=== PATIENT | female | born 1930 | race Caucasian/White ===

== ENCOUNTER 2017-10-11 19:00 | Inpatient (IN) | payer MEDICARE, MEDICAID ==
[~2017-10-11] VITALS: Ht 165.1 cm; Wt 74.4 kg
[~2017-10-11 19:00] MED LIST: ALBU6.7H INH; ALLO100T PO; ATOR10TA PO; AZIL80TA PO; BUDE10.2 INH; CHOL10002 PO; CINA30TA2 PO; CLOP75TA15 PO; ESOM40CA PO; FLUC150T PO; GLIP5TAB13 PO; MAGN500C16 PO; METF-494 PO; MIRA25TA PO; MONT4TAB9 PO; PRED20TA PO; SPIR25TA4 PO; TRAV5DRO EACHEYE
[2017-10-11] MEDS ORDERED: AZIL40TA PO (19:33)
[2017-10-11] MEDS ORDERED: CHOL200026 PO (19:33)
[2017-10-11] MEDS ORDERED: METH4TAB17 PO (19:43)
[2017-10-11] MEDS ORDERED: LINA290C PO (19:43)
[2017-10-11] MEDS ORDERED: ALBU2.5V13 NEB (19:43)
[2017-10-11] MEDS ORDERED: CEPH500C2 PO (19:44)
[2017-10-11 20:24] VITALS: BP 127/58
[2017-10-11] MEDS: ATORVASTATIN 10 MG TABLET PO SCH (21:00)
[2017-10-11] MEDS: LEVOFLOXACIN 250 MG TABLET PO SCH (21:24)
[2017-10-11] MEDS: MONTELUKAST SODIUM 10 MG TABLET PO SCH (21:24)
[2017-10-11] MEDS ORDERED: ALBUTEROL SULFATE 2.5 MG/ 0.5 ML NEBU NEB PRN (22:00)
[2017-10-12] MEDS: ACETAMINOPHEN/CODEINE 300-30 MG TABLET PO PRN ×3 (00:19→22:40)
[2017-10-12] MEDS: ALBUTEROL SULFATE 2.5 MG/ 0.5 ML NEBU NEB SCH ×4 (00:55→20:19)
[2017-10-12 08:00] VITALS: BP 141/73
[2017-10-12] MEDS ORDERED: Medication Not On Formulary EA (Montelukast Sodium (Singulair) 4 MG) PO SCH (09:00)
[2017-10-12] MEDS ORDERED: methylPREDNISolone 4 MG TABLET PO SCH (09:00)
[2017-10-12] MEDS: METFORMIN HCL 500 MG TABLET PO SCH ×2 (09:11→17:34)
[2017-10-12] MEDS: SPIRONOLACTONE 25 MG TABLET PO SCH (09:11)
[2017-10-12] MEDS: ALLOPURINOL 100 MG TABLET PO SCH (09:11)
[2017-10-12] MEDS: CINACALCET HCL 30 MG TABLET PO SCH (09:11)
[2017-10-12] MEDS ORDERED: CHOL200010 PO (13:21)
[2017-10-12] MEDS ORDERED: BUDE10.22 IH (13:21)
[2017-10-12] MEDS ORDERED: TRAV5DRO OP (13:21)
[2017-10-12] MEDS ORDERED: ALBU6.7H IH (13:21)
[2017-10-12] MEDS ORDERED: FURO-151 PO (13:28)
[2017-10-12 19:30] VITALS: BP 129/66
[2017-10-12] MEDS: LEVOFLOXACIN 250 MG TABLET PO SCH (20:53)
[2017-10-12] MEDS: ATORVASTATIN 10 MG TABLET PO SCH (20:53)
[2017-10-12] MEDS: LATANOPROST OPHT DROP 2.5 ML BOTTLE EACHEYE SCH (20:54)
[2017-10-12] MEDS: MONTELUKAST SODIUM 10 MG TABLET PO SCH (20:54)
[2017-10-13] MEDS: ALBUTEROL SULFATE 2.5 MG/ 0.5 ML NEBU NEB SCH ×4 (04:15→20:40)
[2017-10-13 07:43] LABS: CARBON DIOXIDE 27 mmol/L (21-32); CHLORIDE 104 mmol/L (98-107); CREATININE 1.1 mg/dL (0.6-1.3); GLUCOSE 100 mg/dL (74-106); POTASSIUM 4.4 mmol/L (3.5-5.1); UREA NITROGEN, BLOOD 18 mg/dL (7-18)
[2017-10-13 08:08] LABS: BASOPHILS % (AUTO) 0.8 % (0.0-2.0); EOSINOPHILS # (AUTO) 0.1 K/uL (0.0-0.7); EOSINOPHILS % (AUTO) 2.6 % (0.0-7.0); HEMATOCRIT 29.4 % (31.2-41.9); HEMOGLOBIN 9.7 g/dL (10.9-14.3); LYMPHOCYTES # (AUTO) 1.6 K/uL (20.0-40.0); LYMPHOCYTES % (AUTO) 36.2 % (20.5-51.5); MEAN CORPUSCULAR HEMOGLOBIN 27.6 uug (24.7-32.8); MEAN CORPUSCULAR HGB CONC 33 g/dL (32.3-35.6); MEAN CORPUSCULAR VOLUME 84.1 fL (75.5-95.3); MONOCYTES # (AUTO) 0.7 K/uL (2.0-10.0); MONOCYTES % (AUTO) 15.1 % (0.0-11.0); NEUTROPHILS % (AUTO) 45.3 % (38.5-71.5); PLATELET COUNT (AUTO) 202 K/uL (179-408); WHITE BLOOD COUNT (AUTO) 4.5 K/uL (3.8-11.8)
[2017-10-13] MEDS: ALLOPURINOL 100 MG TABLET PO SCH (08:20)
[2017-10-13] MEDS: methylPREDNISolone 4 MG TABLET PO SCH (08:20)
[2017-10-13] MEDS: METFORMIN HCL 500 MG TABLET PO SCH ×2 (08:20→17:03)
[2017-10-13] MEDS: CLOPIDOGREL 75 MG TABLET PO SCH (08:20)
[2017-10-13] MEDS: CINACALCET HCL 30 MG TABLET PO SCH (08:20)
[2017-10-13 09:02] LABS: BAND % (MANUAL) 2 % (0-10); EOSINOPHILS % (MANUAL) 3 % (0-8); LYMPHOCYTES % (MANUAL) 35 % (20-40); MONOCYTES % (MANUAL) 13 % (2-10); NEUTROPHILS % (MANUAL) 47 % (42-75)
[2017-10-13 09:19] VITALS: BP 138/59
[2017-10-13] MEDS: PANTOPRAZOLE SODIUM 40 MG TABLET.DR PO SCH (10:20)
[2017-10-13] MEDS: ACETAMINOPHEN/CODEINE 300-30 MG TABLET PO PRN ×2 (10:20→20:52)
[2017-10-13] MEDS ORDERED: BUDE10.2 INH (10:29)
[2017-10-13] MEDS ORDERED: SYMBICORT 160/4.5 INH SCH (10:30)
[2017-10-13 16:47] LABS: PHOSPHOROUS 2.8 mg/dL (2.5-4.9)
[2017-10-13 16:55] LABS: *BILIRUBIN,URIN NEGATIVE (NEGATIVE); *BLOOD, URINE NEGATIVE (NEGATIVE); *CLARITY,URINE CLEAR (CLEAR); *COLOR,URINE YELLOW (YELLOW); *KETONES,URINE NEGATIVE (NEGATIVE); *PROTEIN,URINE NEGATIVE (NEGATIVE); *UROBILINOGEN,URINE 0.2 E.U./dl (NORMAL); LEUKOCYTE ESTERASE ,URINE TRACE (NEGATIVE); NITRITE, URINE NEGATIVE (NEGATIVE); PH,URINE 5.5 (5.0-8.0); UGLUCOSE NEGATIVE (NEGATIVE)
[2017-10-13 17:13] LABS: MAGNESIUM 1.1 mg/dL (1.8-2.4)
[2017-10-13] MEDS ORDERED: MAGNESIUM OXIDE 400 MG TABLET PO SCH (17:30)
[2017-10-13 17:37] LABS: BACTERIA,URINE NONE SEEN /HPF (NONE SEEN); RBC,URINE 0-3 /HPF (0-3); SQUAMOUS EPITHELIAL CELL,UR FEW /HPF (NONE SEEN); WBC,URINE 0-3 /HPF (0-3)
[2017-10-13] MEDS ORDERED: MAGNESIUM OXIDE 250 MG TABLET PO SCH (17:45)
[2017-10-13 19:30] VITALS: BP 143/68
[2017-10-13] MEDS: MONTELUKAST SODIUM 10 MG TABLET PO SCH (20:50)
[2017-10-13] MEDS: ATORVASTATIN 10 MG TABLET PO SCH (20:50)
[2017-10-13] MEDS: LATANOPROST OPHT DROP 2.5 ML BOTTLE EACHEYE SCH (21:08)
[2017-10-14] MEDS: ALBUTEROL SULFATE 2.5 MG/ 0.5 ML NEBU NEB SCH ×4 (01:30→18:43)
[2017-10-14] MEDS: PANTOPRAZOLE SODIUM 40 MG TABLET.DR PO SCH (06:31)
[2017-10-14 07:00] VITALS: BP 130/61
[2017-10-14] MEDS: SPIRONOLACTONE 25 MG TABLET PO SCH (09:43)
[2017-10-14] MEDS: METFORMIN HCL 500 MG TABLET PO SCH ×2 (09:45→17:40)
[2017-10-14] MEDS: ALLOPURINOL 100 MG TABLET PO SCH (09:45)
[2017-10-14] MEDS: CINACALCET HCL 30 MG TABLET PO SCH (09:45)
[2017-10-14] MEDS: MAGNESIUM OXIDE 250 MG TABLET PO SCH ×2 (09:46→17:40)
[2017-10-14] MEDS: ACETAMINOPHEN/CODEINE 300-30 MG TABLET PO PRN ×2 (10:41→22:04)
[2017-10-14] MEDS: MAGNESIUM SULFATE/D5W 100 ML IV SCH ×4 (16:23→23:06)
[2017-10-14 19:30] VITALS: BP 151/60
[2017-10-14] MEDS: LATANOPROST OPHT DROP 2.5 ML BOTTLE EACHEYE SCH (21:36)
[2017-10-14] MEDS: MONTELUKAST SODIUM 10 MG TABLET PO SCH (21:36)
[2017-10-14] MEDS: ATORVASTATIN 10 MG TABLET PO SCH (21:36)
[2017-10-15] MEDS: ALBUTEROL SULFATE 2.5 MG/ 0.5 ML NEBU NEB SCH ×4 (00:57→19:54)
[2017-10-15] MEDS: PANTOPRAZOLE SODIUM 40 MG TABLET.DR PO SCH (06:25)
[2017-10-15 08:00] VITALS: BP 126/57
[2017-10-15] MEDS: MAGNESIUM OXIDE 250 MG TABLET PO SCH ×2 (09:05→16:51)
[2017-10-15] MEDS: ALLOPURINOL 100 MG TABLET PO SCH (09:06)
[2017-10-15] MEDS: MIRABEGRON PO SCH (09:06)
[2017-10-15] MEDS: CLOPIDOGREL 75 MG TABLET PO SCH (09:06)
[2017-10-15] MEDS: METFORMIN HCL 500 MG TABLET PO SCH ×2 (09:06→17:30)
[2017-10-15] MEDS: [UNRECOGNIZED DRUG - OTHER] PO SCH (09:06)
[2017-10-15] MEDS: methylPREDNISolone 4 MG TABLET PO SCH (09:06)
[2017-10-15] MEDS: CINACALCET HCL 30 MG TABLET PO SCH (09:06)
[2017-10-15] MEDS: ACETAMINOPHEN/CODEINE 300-30 MG TABLET PO PRN ×2 (11:41→21:00)
[2017-10-15] MEDS ORDERED: MINERAL OIL/PETROLATUM,WHITE 57 GM TUBE TOP PRN (12:45)
[2017-10-15] MEDS ORDERED: Z GUARD REMEDY PASTE 57 GM TUBE TOP PRN (12:45)
[2017-10-15] MEDS ORDERED: MAGNESIUM HYDROXIDE 30 ML LIQUID UDC PO PRN (13:00)
[2017-10-15 20:46] VITALS: BP 141/58
[2017-10-15] MEDS: MONTELUKAST SODIUM 10 MG TABLET PO SCH (20:54)
[2017-10-15] MEDS: LATANOPROST OPHT DROP 2.5 ML BOTTLE EACHEYE SCH (20:54)
[2017-10-15] MEDS: ATORVASTATIN 10 MG TABLET PO SCH (20:54)
[2017-10-16] MEDS: ALBUTEROL SULFATE 2.5 MG/ 0.5 ML NEBU NEB SCH ×3 (01:30→13:30)
[2017-10-16] MEDS: PANTOPRAZOLE SODIUM 40 MG TABLET.DR PO SCH (06:00)
[2017-10-16 07:29] VITALS: BP 143/58
[2017-10-16 08:04] LABS: BASOPHILS # (AUTO) 0.1 K/uL (0.0-8.0); BASOPHILS % (AUTO) 0.6 % (0.0-2.0); EOSINOPHILS # (AUTO) 0.2 K/uL (0.0-0.7); EOSINOPHILS % (AUTO) 1.9 % (0.0-7.0); HEMATOCRIT 29.6 % (31.2-41.9); LYMPHOCYTES # (AUTO) 1.4 K/uL (20.0-40.0); LYMPHOCYTES % (AUTO) 11.7 % (20.5-51.5); MEAN CORPUSCULAR HEMOGLOBIN 28.2 uug (24.7-32.8); MEAN CORPUSCULAR HGB CONC 34 g/dL (32.3-35.6); MEAN CORPUSCULAR VOLUME 83.8 fL (75.5-95.3); MONOCYTES # (AUTO) 0.9 K/uL (2.0-10.0); MONOCYTES % (AUTO) 7.8 % (0.0-11.0); NEUTROPHILS # (AUTO) 9.2 K/uL (1.8-8.9); PLATELET COUNT (AUTO) 277 K/uL (179-408); RED BLOOD CELL COUNT(AUTO) 3.53 MIL/uL (3.63-4.92); WHITE BLOOD COUNT (AUTO) 11.7 K/uL (3.8-11.8)
[2017-10-16] MEDS: SPIRONOLACTONE 25 MG TABLET PO SCH (08:24)
[2017-10-16] MEDS: CINACALCET HCL 30 MG TABLET PO SCH (08:24)
[2017-10-16] MEDS: ALLOPURINOL 100 MG TABLET PO SCH (08:24)
[2017-10-16] MEDS: METFORMIN HCL 500 MG TABLET PO SCH ×2 (08:24→17:30)
[2017-10-16] MEDS: [UNRECOGNIZED DRUG - OTHER] PO SCH (08:25)
[2017-10-16] MEDS: MIRABEGRON PO SCH (08:25)
[2017-10-16] MEDS: MAGNESIUM OXIDE 250 MG TABLET PO SCH ×2 (08:25→17:26)
[2017-10-16 08:55] LABS: ALANINE AMINOTRANSFERASE 15 U/L (14-59); ALKALINE PHOSPHATASE 52 U/L (50-136); ASPARTATE AMINOTRANSFERASE 15 U/L (15-37); BILIRUBIN,TOTAL 0.4 mg/dL (0.2-1.0); CARBON DIOXIDE 29 mmol/L (21-32); CHLORIDE 104 mmol/L (98-107); CHOLESTEROL 129 mg/dL (<200); CREATININE 1.1 mg/dL (0.6-1.3); GLUCOSE 91 mg/dL (74-106); HDL CHOLESTEROL 64 mg/dL (40-60); MAGNESIUM 1.6 mg/dL (1.8-2.4); PHOSPHOROUS 2.5 mg/dL (2.5-4.9); POTASSIUM 4.3 mmol/L (3.5-5.1); TOTAL PROTEIN, SERUM 5.6 g/dL (6.4-8.2); TRIGLYCERIDES 100 MG/DL (30-150); UREA NITROGEN, BLOOD 22 mg/dL (7-18)
[2017-10-16] MEDS: ACETAMINOPHEN/CODEINE 300-30 MG TABLET PO PRN (10:05)
[2017-10-16] MEDS ORDERED: MAGNESIUM OXIDE 400 MG TABLET PO ONE (10:45)
[2017-10-16 12:42] LABS: EOSINOPHILS % (MANUAL) 2 % (0-8); LYMPHOCYTES % (MANUAL) 11 % (20-40); MONOCYTES % (MANUAL) 8 % (2-10); NEUTROPHILS % (MANUAL) 79 % (42-75)
[2017-10-16 15:50] LABS: *BILIRUBIN,URIN NEGATIVE (NEGATIVE); *BLOOD, URINE NEGATIVE (NEGATIVE); *COLOR,URINE YELLOW (YELLOW); *KETONES,URINE NEGATIVE (NEGATIVE); *PROTEIN,URINE NEGATIVE (NEGATIVE); *UROBILINOGEN,URINE 0.2 E.U./dl (NORMAL); LEUKOCYTE ESTERASE ,URINE 2+ (NEGATIVE); NITRITE, URINE NEGATIVE (NEGATIVE); UGLUCOSE NEGATIVE (NEGATIVE)
[2017-10-16 17:11] LABS: *CLARITY,URINE HAZY (CLEAR)
[2017-10-16 17:12] LABS: RBC,URINE 0-3 /HPF (0-3); WBC,URINE 50-80 /HPF (0-3)
[2017-10-16 17:13] LABS: BACTERIA,URINE MANY /HPF (NONE SEEN); SQUAMOUS EPITHELIAL CELL,UR FEW /HPF (NONE SEEN)
[2017-10-16] MEDS ORDERED: diphenhydrAMINE 50 MG/1 ML VIAL IV PRN (17:30)
[2017-10-16 19:19] LABS: BASOPHILS # (AUTO) 0.1 K/uL (0.0-8.0); BASOPHILS % (AUTO) 0.7 % (0.0-2.0); EOSINOPHILS # (AUTO) 0.2 K/uL (0.0-0.7); EOSINOPHILS % (AUTO) 1.1 % (0.0-7.0); HEMATOCRIT 32.3 % (31.2-41.9); HEMOGLOBIN 10.7 g/dL (10.9-14.3); LYMPHOCYTES # (AUTO) 1.3 K/uL (20.0-40.0); LYMPHOCYTES % (AUTO) 8.3 % (20.5-51.5); MEAN CORPUSCULAR HGB CONC 33 g/dL (32.3-35.6); MEAN CORPUSCULAR VOLUME 84.2 fL (75.5-95.3); MONOCYTES # (AUTO) 1.1 K/uL (2.0-10.0); MONOCYTES % (AUTO) 7.1 % (0.0-11.0); NEUTROPHILS # (AUTO) 12.6 K/uL (1.8-8.9); NEUTROPHILS % (AUTO) 82.8 % (38.5-71.5); PLATELET COUNT (AUTO) 322 K/uL (179-408); RED BLOOD CELL COUNT(AUTO) 3.84 MIL/uL (3.63-4.92); WHITE BLOOD COUNT (AUTO) 15.1 K/uL (3.8-11.8)
[2017-10-16 19:28] LABS: CARBON DIOXIDE 30 mmol/L (21-32); CHLORIDE 99 mmol/L (98-107); CREATININE 1.2 mg/dL (0.6-1.3); GLUCOSE 159 mg/dL (74-106); POTASSIUM 4.4 mmol/L (3.5-5.1); UREA NITROGEN, BLOOD 21 mg/dL (7-18)
[2017-10-16 19:33] LABS: ALANINE AMINOTRANSFERASE 15 U/L (14-59); ALKALINE PHOSPHATASE 61 U/L (50-136); ASPARTATE AMINOTRANSFERASE 15 U/L (15-37); BILIRUBIN,TOTAL 0.5 mg/dL (0.2-1.0); MAGNESIUM 1.5 mg/dL (1.8-2.4); PHOSPHOROUS 1.8 mg/dL (2.5-4.9); TOTAL PROTEIN, SERUM 6.1 g/dL (6.4-8.2)
[2017-10-16] MEDS ORDERED: VANCOMYCIN IV 1 G in PREMIXED 0 EACH IV SCH (20:00)
[2017-10-16] MEDS ORDERED: [UNRECOGNIZED DRUG - REMARK] IV (20:12)
[2017-10-16] MEDS ORDERED: VANC1VIA IV (20:12)
[2017-10-16] MEDS ORDERED: MIRA25TA PO (20:12)
[2017-10-16] MEDS ORDERED: DIPH50VI5 IM (20:12)
[2017-10-16] MEDS ORDERED: ALBU2.5V13 IH (20:12)
[2017-10-16] MEDS ORDERED: PANT40TA2 PO (20:12)
[2017-10-16] MEDS ORDERED: MONT10TA22 PO (20:12)
[2017-10-16] MEDS ORDERED: PETR113P TP (20:12)
[2017-10-16] MEDS ORDERED: LATA2.5D2 OP (20:12)
[2017-10-16] MEDS ORDERED: ACET-1467 PO (20:12)
[2017-10-16] MEDS ORDERED: FAMO20VI2 IV (20:12)
[2017-10-16] MEDS ORDERED: FAMOTIDINE. 20 MG/2 ML VIAL IV SCH (21:00)
[2017-10-21] MEDS ORDERED: MAGN400O6 PO (16:16)
[2017-10-21] MEDS ORDERED: ACET-1467 PO (16:16)
[2017-10-21] MEDS ORDERED: ACET325T53 PO (16:16)
[2017-10-21] MEDS ORDERED: GLIM1TAB PO (16:16)
[2017-10-21] MEDS ORDERED: ACID1TAB4 PO (16:16)
[2017-10-21] MEDS ORDERED: DOXY100T2 PO (16:16)
[2017-10-21] MEDS ORDERED: FAMO20TA8 PO (16:16)
[2018-10-13] MEDS ORDERED: FUROSEMIDE 40 MG TABLET PO SCH (09:00)
== END 2017-10-17 16:00 | disposition short-term general hospital (02) | DRG 70 ==
LOC: UNDOLOA 10-16 19:19 → UNDODISIN 10-19 19:03
PROVIDERS: ADMIT Physical Medicine & Rehabilitation Pain Medicine; ATTEND Physical Medicine & Rehabilitation Pain Medicine
DX: G93.41 Metabolic encephalopathy (principal); A41.9 Sepsis, unspecified organism; E43 Unspecified severe protein-calorie malnutrition; L03.115 Cellulitis of right lower limb; E83.42 Hypomagnesemia; E83.52 Hypercalcemia; N39.0 Urinary tract infection, site not specified; E11.9 Type 2 diabetes mellitus without complications; E86.1 Hypovolemia; L03.116 Cellulitis of left lower limb; E87.1 Hypo-osmolality and hyponatremia; R07.89 Other chest pain; R50.9 Fever, unspecified; D50.9 Iron deficiency anemia, unspecified; E66.9 Obesity, unspecified; I10 Essential (primary) hypertension; J45.909 Unspecified asthma, uncomplicated; K21.9 Gastro-esophageal reflux disease without esophagitis; M19.90 Unspecified osteoarthritis, unspecified site; Z68.27 Body mass index [BMI] 27.0-27.9, adult; E78.5 Hyperlipidemia, unspecified; M48.00 Spinal stenosis, site unspecified; M54.40 Lumbago with sciatica, unspecified side; G89.29 Other chronic pain; Z88.6 Allergy status to analgesic agent; Z88.1 Allergy status to other antibiotic agents; Z88.0 Allergy status to penicillin; Z88.2 Allergy status to sulfonamides; Z88.8 Allergy status to other drugs, medicaments and biological substances
CPT/HCPCS: 36415; 70030-TC; 71045; 82306; 83605; 83735; 84100; 84443; 85025; 87040; 87077; 87086; 92526; 92610; 93005; 94640; 97110; 97112; 97116; 97165; 97530; 97535; J3370; J3475; J7050; J7509; J8499

== ENCOUNTER 2017-10-16 19:17 | Inpatient (IN) | payer MEDICARE, MEDICAID ==
[~2017-10-16] VITALS: Ht 160 cm; Wt 72.6 kg
[~2017-10-16 19:17] MED LIST changes: +ALBU2.5V13 NEB; -ALBU6.7H INH; +AZIL40TA PO; -AZIL80TA PO; +CEPH500C2 PO; -CHOL10002 PO; +CHOL200026 PO; -FLUC150T PO; +FURO-151 PO; -GLIP5TAB13 PO; +LINA290C PO; +METH4TAB17 PO; -PRED20TA PO
--- NOTE | 2017-10-16 19:30 | NUR ---
PER ASSEMBLY HAND, PT STATED SHE WAS EXPERIENCING CHEST PAIN, PROMPTING RAPID RESPONSE. UPON ARRIVAL TO ED, PT DENIES CURRENTLY EXPERIENCING CP. DENIES SOB. NO NITRO WAS GIVEN.
--- NOTE | 2017-10-16 19:32 | NUR ---
CLARI FULTON AT BEDSIDE FOR MSE.
--- NOTE | 2017-10-16 19:50 | NUR ---
[facility] AT PT BEDSIDE FOR BLOOD DRAW.
[2017-10-16] MEDS ORDERED: ACETAMINOPHEN 650 MG SUPP.RECT RC ONE ×2 (20:00→20:24)
--- NOTE | 2017-10-16 20:06 | NUR ---
PT'S DAUGHTER AT BEDSIDE.
[2017-10-16 20:11] LABS: THYROID STIMULATING HORMONE 1.793 mIU/mL (0.358-3.740)
[2017-10-16] MEDS ORDERED: [UNRECOGNIZED DRUG - REMARK] IV (20:12)
[2017-10-16] MEDS ORDERED: ACET-1467 PO (20:12)
[2017-10-16] MEDS ORDERED: MIRA25TA PO (20:12)
[2017-10-16] MEDS ORDERED: LATA2.5D2 OP (20:12)
[2017-10-16] MEDS ORDERED: ALBU2.5V13 IH (20:12)
[2017-10-16] MEDS ORDERED: MONT10TA22 PO (20:12)
[2017-10-16] MEDS ORDERED: PANT40TA2 PO (20:12)
[2017-10-16] MEDS ORDERED: VANC1VIA IV (20:12)
[2017-10-16] MEDS ORDERED: FAMO20VI2 IV (20:12)
[2017-10-16] MEDS ORDERED: DIPH50VI5 IM (20:12)
[2017-10-16] MEDS ORDERED: PETR113P TP (20:12)
[2017-10-16 20:15] LABS: MAGNESIUM 1.6 mg/dL (1.8-2.4)
[2017-10-16] MEDS ORDERED: AZTREONAM 1 G VIAL IV ONE (20:15)
[2017-10-16] MEDS ORDERED: MEROPENEM 500 MG in IV NORMAL SALINE 100 ML IV ONE (20:15)
[2017-10-16] MEDS ORDERED: MEROPENEM 500 MG VIAL IV ONE (20:24)
--- NOTE | 2017-10-16 20:49 | NUR ---
Call placed to [facility], Dr. Clinton will be paged.
[2017-10-16] MEDS ORDERED: FLUCONAZOLE 100 MG TABLET PO ONE (21:00)
[2017-10-16] MEDS ORDERED: NITROFURANTOIN/NITROFURAN MAC 100 MG CAPSULE PO ONE (21:00)
[2017-10-16] MEDS ORDERED: NITROFURANTOIN/NITROFURAN MAC 100 MG CAPSULE ONE (21:09)
[2017-10-16] MEDS ORDERED: FLUCONAZOLE 100 MG TABLET ONE (21:09)
[2017-10-16] MEDS: MAGNESIUM SULFATE/D5W 100 ML IV SCH ×2 (21:15→22:06)
[2017-10-16] MEDS ORDERED: MAGNESIUM SULFATE/D5W 200 ML ONE (21:57)
[2017-10-16] MEDS ORDERED: ALBUTEROL SULFATE 2.5 MG/ 0.5 ML NEBU IH PRN (23:45)
[2017-10-16] MEDS ORDERED: diphenhydrAMINE 50 MG/1 ML VIAL IV PRN (23:45)
[2017-10-17] MEDS ORDERED: ONDANSETRON 4 MG/2 ML VIAL IV PRN
[2017-10-17] MEDS ORDERED: MAGNESIUM HYDROXIDE 30 ML LIQUID UDC PO PRN
[2017-10-17] MEDS ORDERED: ENALAPRILAT DIHYDRATE INJ 2.5 MG in IV NORMAL SALINE 50 ML IV PRN ×2
[2017-10-17] MEDS: MAGNESIUM SULFATE/D5W 100 ML IV SCH
[2017-10-17] MEDS ORDERED: MORPHINE SULFATE 4 MG/1 ML DISP.SYRIN IV PRN
--- NOTE | 2017-10-17 00:42 | NUR ---
Pt. admitted to tele, under care of Dr. Clinton Belongs List completed
[2017-10-17 01:00] VITALS: BP 144/56
--- NOTE | 2017-10-17 01:05 | NUR ---
NEW ADMIT FROM ER, ADMITTED FOR PNEUMONIA. PATIENT IS ALERT WITH CONFUSION, DENIES PAIN OR DISCOMFORT. ALL SAFETY MEASURES IN PLACE, CALL LIGHT WITHIN PATIENT'S REACH
[2017-10-17] MEDS ORDERED: MEROPENEM 1 G VIAL IV ONE (03:30)
[2017-10-17] MEDS ORDERED: FLUCONAZOLE 200 MG/100 ML PIGGYBACK ONE (03:31)
[2017-10-17] MEDS: FLUCONAZOLE 200 MG/NS 100ML IV 100 MG in PREMIXED 1 EACH IV SCH (03:45)
[2017-10-17 04:00] VITALS: BP 143/47
[2017-10-17] MEDS: MEROPENEM 0.5 G in IV NORMAL SALINE 50 ML IV SCH ×4 (05:38→21:50)
--- NOTE | 2017-10-17 06:30 | NUR ---
PATIENT SLEPT WELL THOUGH THE NIGHT NO C/O PAIN OR RESP DISTRESS NOTED ON THIS SHIFT. SAFETY MAINTAINED, CALL LIGHT WITHIN PATIENT'S REACH
--- NOTE | 2017-10-17 07:00 | NUR ---
Received patient on bed asleep A and O x 3, able to verbalize needs. No acute distress noted. with IV access on the right hand #20, intact and patent. No s/s of infiltration noted. No complaints of pain and discomfort at this time. Min. assist with ADL's, uses bedside commode. Safety precautions observed at all times. Needs attended and anticipated. Call light within reach .will continue to monitor closely
[2017-10-17] MEDS: ALLOPURINOL 100 MG TABLET PO SCH (08:41)
[2017-10-17] MEDS: CINACALCET HCL 30 MG TABLET PO SCH (08:41)
[2017-10-17] MEDS: ACIDOPHILUS/BULGARICUS CHEW TAB PO SCH ×2 (08:41→21:20)
[2017-10-17] MEDS: FAMOTIDINE. 20 MG/2 ML VIAL IV SCH ×2 (08:42→21:18)
[2017-10-17] MEDS: FUROSEMIDE 40 MG/4 ML VIAL IV SCH (08:42)
[2017-10-17] MEDS ORDERED: PANTOPRAZOLE SODIUM 40 MG TABLET.DR PO SCH (09:00)
[2017-10-17 09:02] LABS: BASOPHILS # (AUTO) 0.1 K/uL (0.0-8.0); BASOPHILS % (AUTO) 0.4 % (0.0-2.0); EOSINOPHILS # (AUTO) 0.3 K/uL (0.0-0.7); EOSINOPHILS % (AUTO) 1.9 % (0.0-7.0); HEMATOCRIT 30.3 % (31.2-41.9); HEMOGLOBIN 10.1 g/dL (10.9-14.3); LYMPHOCYTES # (AUTO) 1.1 K/uL (20.0-40.0); LYMPHOCYTES % (AUTO) 7.9 % (20.5-51.5); MEAN CORPUSCULAR HEMOGLOBIN 28.1 uug (24.7-32.8); MEAN CORPUSCULAR HGB CONC 33 g/dL (32.3-35.6); MONOCYTES # (AUTO) 0.9 K/uL (2.0-10.0); MONOCYTES % (AUTO) 6.7 % (0.0-11.0); NEUTROPHILS # (AUTO) 11.3 K/uL (1.8-8.9); NEUTROPHILS % (AUTO) 83.1 % (38.5-71.5); PLATELET COUNT (AUTO) 309 K/uL (179-408); RED BLOOD CELL COUNT(AUTO) 3.61 MIL/uL (3.63-4.92); WHITE BLOOD COUNT (AUTO) 13.6 K/uL (3.8-11.8)
[2017-10-17 09:16] LABS: ALANINE AMINOTRANSFERASE 13 U/L (14-59); ALKALINE PHOSPHATASE 56 U/L (50-136); ASPARTATE AMINOTRANSFERASE 15 U/L (15-37); BILIRUBIN,TOTAL 0.5 mg/dL (0.2-1.0); CARBON DIOXIDE 28 mmol/L (21-32); CHLORIDE 101 mmol/L (98-107); CREATININE 1.2 mg/dL (0.6-1.3); GLUCOSE 114 mg/dL (74-106); MAGNESIUM 1.9 mg/dL (1.8-2.4); PHOSPHOROUS 2.2 mg/dL (2.5-4.9); POTASSIUM 4.1 mmol/L (3.5-5.1); TOTAL PROTEIN, SERUM 5.7 g/dL (6.4-8.2); UREA NITROGEN, BLOOD 18 mg/dL (7-18)
[2017-10-17] MEDS: CLOPIDOGREL 75 MG TABLET PO SCH (09:28)
[2017-10-17] MEDS: MAGNESIUM OXIDE 250 MG TABLET PO SCH ×2 (09:53→16:30)
[2017-10-17] MEDS ORDERED: NEUTRA PHOS PACKET PO ONE (10:30)
--- NOTE | 2017-10-17 11:30 | NUR ---
Called Pharmacy to clarify Vancomycin order since patient's record says she's allergic to Vancomycin. Per [facility] pharmacist Dr. Ny aware and approved vanco order. Will continue to monitor patient.
[2017-10-17 11:40] VITALS: BP 151/56
[2017-10-17] MEDS: VANCOMYCIN IV 750 MG in IV NORMAL SALINE 250 ML IV SCH (11:49)
--- NOTE | 2017-10-17 12:45 | NUR ---
PATIENT NOTED WITH REDNESS AND SWELLING ON THE RIGHT HAND #22, IV ACCESS REMOVED AND NOTIFIED VENICE CHARGE NURSE AND DR. BENNETT. WILL CONTINUE TO MONITOR CLOSELY.
--- NOTE | 2017-10-17 12:50 | NUR ---
No IV access, plan for insertion of midline later today. Vancomycin IV stopped. will continue to monitor.
--- NOTE | 2017-10-17 15:03 | NUR ---
Clinical pharmacy note-Vancomycin dosing per pharmacy Subjective: To start Vancomycin dosing on this patient for UTI(MRSA in urine) Objective: BUN 18 Scr 1.2 WBC 13.6 Temp 100.1 Assessment/Plan: Will start Vancomycin 750mg IV every 24hrs (first dose today at 1200) and draw trough by 4th dose(not ordered yet) for expected trough around 15. Will monitor daily.
[2017-10-17 15:35] VITALS: BP 146/59
--- NOTE | 2017-10-17 18:33 | NUR ---
PATIENT ON BED AWAKE. NO ACUTE DISTRESS NOTED. PRODUCTIVE COUGH STILL PRESENT. NO IV ACCESS YET, AWAITING MIDLINE INSERTION FOLLOWED UP X 3. VANCO AND MEREM IVATB NOT GIVEN. NO C/O PAIN AND DISCOMFORT AT THIS TIME. BM X 1. WILL ENDORSE ACCORDINGLY.
[2017-10-17 20:45] VITALS: BP 136/55
[2017-10-17] MEDS ORDERED: LATANOPROST OPHT DROP 2.5 ML BOTTLE OP SCH (21:00)
[2017-10-17] MEDS ORDERED: DOCUSATE SODIUM 250 MG CAPSULE PO SCH (21:00)
[2017-10-17] MEDS: LATANOPROST OPHT DROP 2.5 ML BOTTLE EACHEYE SCH (21:18)
[2017-10-17] MEDS: MONTELUKAST SODIUM 10 MG TABLET PO SCH (21:20)
[2017-10-17] MEDS: ATORVASTATIN 10 MG TABLET PO SCH (21:20)
[2017-10-17] MEDS: ACETAMINOPHEN 325 MG TABLET PO PRN (21:55)
--- NOTE | 2017-10-17 21:55 | NUR ---
RECEIVED PATIENT AWAKE IN BED, SHE IS ALERT WITH CONFUSION. SHE C/O OF GENERALIZED PAIN, PRN PAIN MEDS GIVEN ORDERED. NO RESP DISTRESS AT THIS TIME. COMFORT AND SAFETY MEASURES IN PLACE, WILL CONTINUE TO MONITOR PATIENT
--- NOTE | 2017-10-17 22:00 | NUR ---
UNABLE TO ADMINISTER MERREM, NEW IV WAS STARTED AND INFILTRATED. REMOVED IV APPLIED ICE AND ELEVATED EXTREMITY, COMFORT MEASURES INITIATED. AWAITING FOR EPIC GROUP TO INSERT MIDLINE
[2017-10-17] MEDS ORDERED: TRAMADOL HCL 50 MG TABLET PO PRN (23:15)
[2017-10-18] MEDS: FLUCONAZOLE 200 MG/NS 100ML IV 100 MG in PREMIXED 1 EACH IV SCH ×2
[2017-10-18 00:32] VITALS: BP 108/44
[2017-10-18] MEDS: ACETAMINOPHEN/CODEINE 300-30 MG TABLET PO PRN ×2 (00:32→22:32)
[2017-10-18 04:00] VITALS: BP 116/56
[2017-10-18] MEDS: MEROPENEM 0.5 G in IV NORMAL SALINE 50 ML IV SCH ×3 (06:00→21:05)
--- NOTE | 2017-10-18 06:39 | NUR ---
PATIENT SLEPT ON AND OFF THROUGH THE NIGHT. NO SIGNIFICANT CHANGES IN STATUS. MERREM WAS HELD PATIENT WITH NO IV ACCESS, STILL WAITING FOR EPIC GROUP TO INSERT MIDLINE
[2017-10-18 06:42] LABS: BASOPHILS # (AUTO) 0.1 K/uL (0.0-8.0); BASOPHILS % (AUTO) 0.5 % (0.0-2.0); EOSINOPHILS # (AUTO) 0.6 K/uL (0.0-0.7); EOSINOPHILS % (AUTO) 4.4 % (0.0-7.0); HEMATOCRIT 29.4 % (31.2-41.9); HEMOGLOBIN 9.8 g/dL (10.9-14.3); LYMPHOCYTES # (AUTO) 1.2 K/uL (20.0-40.0); LYMPHOCYTES % (AUTO) 9.7 % (20.5-51.5); MEAN CORPUSCULAR HEMOGLOBIN 27.8 uug (24.7-32.8); MEAN CORPUSCULAR HGB CONC 33 g/dL (32.3-35.6); MEAN CORPUSCULAR VOLUME 83.2 fL (75.5-95.3); MONOCYTES # (AUTO) 0.9 K/uL (2.0-10.0); MONOCYTES % (AUTO) 7.3 % (0.0-11.0); NEUTROPHILS % (AUTO) 78.1 % (38.5-71.5); PLATELET COUNT (AUTO) 312 K/uL (179-408); RED BLOOD CELL COUNT(AUTO) 3.53 MIL/uL (3.63-4.92); WHITE BLOOD COUNT (AUTO) 12.8 K/uL (3.8-11.8)
[2017-10-18 06:59] LABS: ALANINE AMINOTRANSFERASE 20 U/L (14-59); ALKALINE PHOSPHATASE 64 U/L (50-136); ASPARTATE AMINOTRANSFERASE 14 U/L (15-37); BILIRUBIN,TOTAL 0.5 mg/dL (0.2-1.0); CARBON DIOXIDE 30 mmol/L (21-32); CHLORIDE 98 mmol/L (98-107); CREATININE 1.3 mg/dL (0.6-1.3); GLUCOSE 89 mg/dL (74-106); MAGNESIUM 1.7 mg/dL (1.8-2.4); PHOSPHOROUS 2.8 mg/dL (2.5-4.9); POTASSIUM 3.8 mmol/L (3.5-5.1); TOTAL PROTEIN, SERUM 5.5 g/dL (6.4-8.2); UREA NITROGEN, BLOOD 19 mg/dL (7-18)
--- NOTE | 2017-10-18 07:20 | NUR ---
Report received from film processing shift supervisor, client is in bed sleeping with no apparent s/s of SOB, pain, distress or discomfort. Client is in a semi fowlers position laying supine. Bed at lowest position for safety and call light within reach for assistance. 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 No IV hydration and or ATB due to no IV access. It was endorsed that a midline was ordered yesterday.
[2017-10-18] MEDS: FUROSEMIDE 40 MG/4 ML VIAL IV SCH (08:30)
[2017-10-18] MEDS: MAGNESIUM OXIDE 250 MG TABLET PO SCH ×2 (08:30→16:45)
[2017-10-18] MEDS: CINACALCET HCL 30 MG TABLET PO SCH (08:30)
[2017-10-18] MEDS: ACIDOPHILUS/BULGARICUS CHEW TAB PO SCH ×2 (08:30→21:02)
[2017-10-18] MEDS: ALLOPURINOL 100 MG TABLET PO SCH (08:30)
[2017-10-18] MEDS: FAMOTIDINE. 20 MG/2 ML VIAL IV SCH (08:32)
[2017-10-18] MEDS: FAMOTIDINE 20 MG TABLET PO SCH ×2 (08:57→21:03)
--- NOTE | 2017-10-18 09:04 | NUR ---
Lasix IV and Pepcid IV not given due to the client has no IV access. I call pharmacy to change medications to PO. Pepcid given, Lasix still waiting for it to change to PO. Pharmacist said she would change the IV medications that could be changed to PO. Assisted client to the bedside commode
--- NOTE | 2017-10-18 09:39 | NUR ---
Midline insertion taking place at this time
[2017-10-18] MEDS: FUROSEMIDE 20 MG TABLET PO SCH (09:47)
--- NOTE | 2017-10-18 09:47 | NUR ---
Midline insert done, 20g 10cm in length insert without complications. Client tolerated procedure well.
[2017-10-18 11:36] VITALS: BP 125/54
[2017-10-18] MEDS: VANCOMYCIN IV 750 MG in IV NORMAL SALINE 250 ML IV SCH (12:01)
--- NOTE | 2017-10-18 12:06 | NUR ---
Clinical pharmacy note-Vancomycin dosing per pharmacy Subjective: To continue Vancomycin dosing on this patient for UTI(MRSA in urine) Objective: BUN 19 Scr 1.3 WBC 12.8 Temp 98.3 MD is aware of Vancomycin allergy(itchiness) but ordered to continue with benadryl IV. Patient has multiple abx allergy(vanco, pcn, macrolide, quinolone, bactrim). Assessment/Plan: Patient was scheduled to have Vancomycin iv yesterday but infusion stopped due to injection site redness and swelling. MD was notified and midline was inserted today around 10am. Will start Vancomycin 750mg IV every 24hrs(first dose today at 1200) and draw trough by 4th dose(not ordered yet) for expected trough around 17. Will monitor daily.
--- NOTE | 2017-10-18 12:11 | NUR ---
Assisted client to bedside commode. Started Vancocin as ordered through the new midline. Client is sitting on the edge of the bed and tolerating IV infuse well
[2017-10-18] MEDS ORDERED: MAGNESIUM SULFATE/D5W 100 ML IV SCH (12:30)
--- NOTE | 2017-10-18 12:44 | NUR ---
Assisted client to bedside commode, noted difficult transferring to the bed and commode but client make an effort to do so
[2017-10-18 15:38] VITALS: BP 123/60
[2017-10-18] MEDS: MYRBETRIQ 25 MG PO SCH (16:45)
--- NOTE | 2017-10-18 17:00 | NUR ---
aware of client's request for Metformin orders. stated there is no need for Metformin as of right now because her blood work was low-normal and creatinine 1.3 but new orders were noted for Accu checks. Orders were approved by for the client to take her own medication of Myrbetriq ER 25mg.
--- NOTE | 2017-10-18 19:32 | NUR ---
End of shift report: Client is sleeping in bed with the HOB high fowlers position. Noted that client is aware of all her medication and knows what they are for. Noted that client makes an effort to get her in and out of bed but with some difficulty. Bedside commode next to the bed for easier access. All ATB IV given after midline insertion. Client was compliant with all nurse care. Bed at lowest position for safety and call light within reach for assistance
[2017-10-18 20:00] VITALS: BP 112/51
[2017-10-18] MEDS: ATORVASTATIN 10 MG TABLET PO SCH (21:02)
[2017-10-18] MEDS: DOCUSATE SODIUM 100 MG CAPSULE PO SCH (21:03)
[2017-10-18] MEDS: MONTELUKAST SODIUM 10 MG TABLET PO SCH (21:03)
[2017-10-18] MEDS: LATANOPROST OPHT DROP 2.5 ML BOTTLE EACHEYE SCH (21:03)
--- NOTE | 2017-10-18 21:30 | NUR ---
Awake & alert no SOB denies chest pain. Bilateral lower leg redness noted, patient c/o pain. Medicated w/ Tylenol #3 PRN. Routine night medications given with apple sauce, patient tolerated. Assisted to bedside commode, & oral care performed. Kept comfortable. Will continue to monitor.
[2017-10-18] MEDS ORDERED: FLUCONAZOLE 100 MG TABLET PO SCH (23:00)
--- NOTE | 2017-10-19 01:00 | NUR ---
Sleeping comfortably. No signs of distress.
--- NOTE | 2017-10-19 04:00 | NUR ---
PT IN ROOM ASLEEP IN NO ACUTE DISTRESS. CONTINUE TO MONITOR.
[2017-10-19 04:32] VITALS: BP 113/55
--- NOTE | 2017-10-19 05:00 | NUR ---
PT IN ROOM ASLEEP IN NO ACUTE DISTRESS. ABLE TO SLEEP WITHOUT DIFFICULTY AND FOLLOW SIMPLE COMMANDS. NO S/S OF FEVER OR CHILLS. V/S ARE WNL. PT TO CONTINUE ATB THERAPY ROUTINE MERREM. CONTINUE TO MONITOR. CALL LIGHT WITHIN REACH.
[2017-10-19] MEDS: MEROPENEM 0.5 G in IV NORMAL SALINE 50 ML IV SCH ×2 (05:29→14:34)
[2017-10-19 07:54] LABS: BASOPHILS # (AUTO) 0.1 K/uL (0.0-8.0); BASOPHILS % (AUTO) 0.8 % (0.0-2.0); EOSINOPHILS # (AUTO) 0.5 K/uL (0.0-0.7); EOSINOPHILS % (AUTO) 5.4 % (0.0-7.0); HEMATOCRIT 31.8 % (31.2-41.9); HEMOGLOBIN 10.5 g/dL (10.9-14.3); LYMPHOCYTES # (AUTO) 1.2 K/uL (20.0-40.0); LYMPHOCYTES % (AUTO) 11.7 % (20.5-51.5); MEAN CORPUSCULAR HEMOGLOBIN 27.7 uug (24.7-32.8); MEAN CORPUSCULAR HGB CONC 33 g/dL (32.3-35.6); MEAN CORPUSCULAR VOLUME 83.6 fL (75.5-95.3); MONOCYTES # (AUTO) 0.9 K/uL (2.0-10.0); MONOCYTES % (AUTO) 8.7 % (0.0-11.0); NEUTROPHILS # (AUTO) 7.5 K/uL (1.8-8.9); NEUTROPHILS % (AUTO) 73.4 % (38.5-71.5); RED BLOOD CELL COUNT(AUTO) 3.81 MIL/uL (3.63-4.92); WHITE BLOOD COUNT (AUTO) 10.2 K/uL (3.8-11.8)
[2017-10-19 07:58] LABS: CARBON DIOXIDE 31 mmol/L (21-32); CHLORIDE 98 mmol/L (98-107); CREATININE 1.4 mg/dL (0.6-1.3); GLUCOSE 104 mg/dL (74-106); MAGNESIUM 2.1 mg/dL (1.8-2.4); PHOSPHOROUS 2.8 mg/dL (2.5-4.9); POTASSIUM 3.7 mmol/L (3.5-5.1); UREA NITROGEN, BLOOD 21 mg/dL (7-18)
[2017-10-19 08:05] LABS: PLATELET COUNT (AUTO) 398 K/uL (179-408)
[2017-10-19] MEDS: ACIDOPHILUS/BULGARICUS CHEW TAB PO SCH ×2 (10:21→21:29)
[2017-10-19] MEDS: FUROSEMIDE 20 MG TABLET PO SCH (10:22)
[2017-10-19] MEDS: FAMOTIDINE 20 MG TABLET PO SCH (10:22)
[2017-10-19] MEDS: ALLOPURINOL 100 MG TABLET PO SCH (10:23)
[2017-10-19] MEDS: CINACALCET HCL 30 MG TABLET PO SCH (10:24)
[2017-10-19] MEDS: CLOPIDOGREL 75 MG TABLET PO SCH (10:33)
[2017-10-19] MEDS: MAGNESIUM OXIDE 250 MG TABLET PO SCH ×2 (10:33→18:15)
[2017-10-19] MEDS: MYRBETRIQ 25 MG PO SCH (10:34)
--- NOTE | 2017-10-19 10:43 | NUR ---
Clinical pharmacy note-Vancomycin dosing per pharmacy Subjective: To continue Vancomycin dosing on this patient for UTI(MRSA in urine) Objective: BUN 21 Scr 1.4 WBC 10.2 Temp 98.5 Vanco random 9.9 (with am labs) MD is aware of Vancomycin allergy(itchiness) but ordered to continue with benadryl IV. Patient has multiple abx allergy(vanco, pcn, macrolide, quinolone, bactrim). Assessment/Plan: Since srcr increased, checked vanco random level this am. Since it is 9.9, will continue same dose of Vancomycin 750mg IV every 24hrs. 2nd dose is due today at 1200. Plan to draw trough by 4th dose(not ordered yet) for expected trough around 17. Will monitor daily.
[2017-10-19 11:07] VITALS: BP 100/58
[2017-10-19] MEDS: VANCOMYCIN IV 750 MG in IV NORMAL SALINE 250 ML IV SCH (11:57)
[2017-10-19 15:08] VITALS: BP 138/63
[2017-10-19 20:00] VITALS: BP 114/50
--- NOTE | 2017-10-19 20:00 | NUR ---
Received pt in bed, alert and awake. No distress noted. No SOB noted. Call light within reach.
[2017-10-19] MEDS: ATORVASTATIN 10 MG TABLET PO SCH (21:24)
[2017-10-19] MEDS: LATANOPROST OPHT DROP 2.5 ML BOTTLE EACHEYE SCH (21:24)
[2017-10-19] MEDS: MONTELUKAST SODIUM 10 MG TABLET PO SCH (21:29)
[2017-10-19] MEDS: DOCUSATE SODIUM 100 MG CAPSULE PO SCH (21:32)
[2017-10-19] MEDS ORDERED: CEFTRIAXONE 1 G in IV DEXTROSE 5% 50 ML IV SCH (22:00)
[2017-10-19] MEDS: DOXYCYCLINE HYCLATE 100 MG TABLET PO SCH (22:03)
[2017-10-19] MEDS: ACETAMINOPHEN/CODEINE 300-30 MG TABLET PO PRN (22:10)
[2017-10-19] MEDS ORDERED: CEFTRIAXONE 1 G VIAL ONE (22:53)
[2017-10-20 04:35] VITALS: BP 130/56
--- NOTE | 2017-10-20 06:35 | NUR ---
Pt is stable at this time. Coughing intermittently, no SOB noted. All vital signs WNL. Bed in low, locked position. Bed alarm on. Call light within reach.
[2017-10-20 07:28] LABS: ALANINE AMINOTRANSFERASE 8 U/L (14-59); ALKALINE PHOSPHATASE 73 U/L (50-136); ASPARTATE AMINOTRANSFERASE 14 U/L (15-37); BILIRUBIN,TOTAL 0.3 mg/dL (0.2-1.0); CARBON DIOXIDE 31 mmol/L (21-32); CHLORIDE 97 mmol/L (98-107); CREATININE 1.3 mg/dL (0.6-1.3); GLUCOSE 115 mg/dL (74-106); MAGNESIUM 1.8 mg/dL (1.8-2.4); PHOSPHOROUS 2.5 mg/dL (2.5-4.9); TOTAL PROTEIN, SERUM 6.2 g/dL (6.4-8.2); UREA NITROGEN, BLOOD 18 mg/dL (7-18)
[2017-10-20 07:39] LABS: BASOPHILS # (AUTO) 0.1 K/uL (0.0-8.0); BASOPHILS % (AUTO) 1.1 % (0.0-2.0); EOSINOPHILS # (AUTO) 0.7 K/uL (0.0-0.7); EOSINOPHILS % (AUTO) 5.8 % (0.0-7.0); HEMATOCRIT 32.8 % (31.2-41.9); HEMOGLOBIN 10.8 g/dL (10.9-14.3); LYMPHOCYTES # (AUTO) 1.4 K/uL (20.0-40.0); LYMPHOCYTES % (AUTO) 11.9 % (20.5-51.5); MEAN CORPUSCULAR HEMOGLOBIN 27.6 uug (24.7-32.8); MEAN CORPUSCULAR HGB CONC 33 g/dL (32.3-35.6); MEAN CORPUSCULAR VOLUME 83.5 fL (75.5-95.3); MONOCYTES # (AUTO) 1.2 K/uL (2.0-10.0); MONOCYTES % (AUTO) 10.2 % (0.0-11.0); NEUTROPHILS # (AUTO) 8.1 K/uL (1.8-8.9); PLATELET COUNT (AUTO) 450 K/uL (179-408); RED BLOOD CELL COUNT(AUTO) 3.93 MIL/uL (3.63-4.92); WHITE BLOOD COUNT (AUTO) 11.4 K/uL (3.8-11.8)
--- NOTE | 2017-10-20 07:44 | NUR ---
Report received from teacher theater arts, client is in bed sleeping with no apparent s/s of SOB, pain, distress or discomfort. Bed at lowest position for safety and call light within reach for assistance. 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
[2017-10-20] MEDS: MYRBETRIQ 25 MG PO SCH (08:11)
[2017-10-20] MEDS: CINACALCET HCL 30 MG TABLET PO SCH (08:12)
[2017-10-20] MEDS: ACIDOPHILUS/BULGARICUS CHEW TAB PO SCH ×2 (08:12→21:01)
[2017-10-20] MEDS: ALLOPURINOL 100 MG TABLET PO SCH (08:12)
[2017-10-20] MEDS: DOXYCYCLINE HYCLATE 100 MG TABLET PO SCH ×2 (08:12→21:00)
[2017-10-20] MEDS: FAMOTIDINE 20 MG TABLET PO SCH (08:12)
[2017-10-20] MEDS: MAGNESIUM OXIDE 250 MG TABLET PO SCH ×2 (08:12→16:06)
[2017-10-20] MEDS: FUROSEMIDE 20 MG TABLET PO SCH (08:12)
[2017-10-20 11:05] VITALS: BP 124/55
[2017-10-20] MEDS: ACETAMINOPHEN/CODEINE 300-30 MG TABLET PO PRN ×2 (14:32→23:22)
[2017-10-20 15:49] VITALS: BP 146/65
[2017-10-20] MEDS ORDERED: METFORMIN HCL 500 MG TABLET PO SCH (18:00)
--- NOTE | 2017-10-20 19:15 | NUR ---
RECEIVED PT AWAKE, ALERT, ORIENTEDX3 ON BED. PT IV INTACT AND PATENT. PT USED BEDSIDE COMMODE. PT SHOWS NO SIGNS OF DISTRESS WILL CONTINUE TO MONITOR.
[2017-10-20 20:22] VITALS: BP 141/58
[2017-10-20] MEDS: DOCUSATE SODIUM 100 MG CAPSULE PO SCH (21:00)
[2017-10-20] MEDS: MONTELUKAST SODIUM 10 MG TABLET PO SCH (21:00)
[2017-10-20] MEDS: ATORVASTATIN 10 MG TABLET PO SCH (21:01)
[2017-10-20] MEDS: LATANOPROST OPHT DROP 2.5 ML BOTTLE EACHEYE SCH (21:14)
[2017-10-20] MEDS: CEFEPIME HCL 1 G in IV DEXTROSE 5% 50 ML IV SCH (22:00)
[2017-10-20] MEDS: ACETAMINOPHEN 325 MG TABLET PO PRN (22:18)
--- NOTE | 2017-10-21 06:24 | NUR ---
PT SLEPT THROUGHOUT THE SHIFT. PT SHOWS NO SIGNS OF DISTRESS. PT GOT ANXIOUS ABOUT HER TYLENOL 3 MEDICATION LAST NIGHT. IT WAS RESOLVED AND GIVEN TO THE PT. THE TYLENOL THAT WAS GOT FROM THE [facility] WAS THROWN OR WASTED BECAUSE PT WANTS NOT JUST THE REGULAR TYLENOL.SHE LIKES TYLENOL3. PT VITAL SIGNS WITHIN NORMAL LIMIT. PRESCRIBED MEDICATION GIVEN AND TOLERATED. SAFETY AND COMFORT PROVIDED. WILL ENDORSE TO DAYSHIFT NURSE.
[2017-10-21 06:54] VITALS: BP 132/85
[2017-10-21 06:58] LABS: BASOPHILS # (AUTO) 0.1 K/uL (0.0-8.0); BASOPHILS % (AUTO) 0.9 % (0.0-2.0); EOSINOPHILS # (AUTO) 0.7 K/uL (0.0-0.7); EOSINOPHILS % (AUTO) 6.3 % (0.0-7.0); HEMATOCRIT 31.2 % (31.2-41.9); HEMOGLOBIN 10.4 g/dL (10.9-14.3); LYMPHOCYTES # (AUTO) 2.1 K/uL (20.0-40.0); LYMPHOCYTES % (AUTO) 18.8 % (20.5-51.5); MEAN CORPUSCULAR HEMOGLOBIN 27.9 uug (24.7-32.8); MEAN CORPUSCULAR HGB CONC 33 g/dL (32.3-35.6); MEAN CORPUSCULAR VOLUME 83.5 fL (75.5-95.3); MONOCYTES # (AUTO) 1.3 K/uL (2.0-10.0); MONOCYTES % (AUTO) 11.5 % (0.0-11.0); NEUTROPHILS % (AUTO) 62.5 % (38.5-71.5); PLATELET COUNT (AUTO) 455 K/uL (179-408); RED BLOOD CELL COUNT(AUTO) 3.74 MIL/uL (3.63-4.92); WHITE BLOOD COUNT (AUTO) 11.2 K/uL (3.8-11.8)
[2017-10-21 07:08] LABS: CARBON DIOXIDE 31 mmol/L (21-32); CHLORIDE 98 mmol/L (98-107); CREATININE 1.2 mg/dL (0.6-1.3); GLUCOSE 125 mg/dL (74-106); MAGNESIUM 1.8 mg/dL (1.8-2.4); POTASSIUM 4.2 mmol/L (3.5-5.1); UREA NITROGEN, BLOOD 18 mg/dL (7-18)
[2017-10-21] MEDS: FUROSEMIDE 20 MG TABLET PO SCH (09:19)
[2017-10-21] MEDS: FAMOTIDINE 20 MG TABLET PO SCH (09:19)
[2017-10-21] MEDS: ACIDOPHILUS/BULGARICUS CHEW TAB PO SCH (09:19)
[2017-10-21] MEDS: ALLOPURINOL 100 MG TABLET PO SCH (09:19)
[2017-10-21] MEDS: CINACALCET HCL 30 MG TABLET PO SCH (09:19)
[2017-10-21] MEDS: MYRBETRIQ 25 MG PO SCH (09:20)
[2017-10-21] MEDS: CLOPIDOGREL 75 MG TABLET PO SCH (09:20)
[2017-10-21] MEDS: MAGNESIUM OXIDE 250 MG TABLET PO SCH ×2 (09:20→17:31)
[2017-10-21] MEDS: DOXYCYCLINE HYCLATE 100 MG TABLET PO SCH (09:42)
[2017-10-21] MEDS: CEFEPIME HCL 1 G in IV DEXTROSE 5% 50 ML IV SCH (09:43)
[2017-10-21 12:58] VITALS: BP 128/58
[2017-10-21] MEDS: ACETAMINOPHEN/CODEINE 300-30 MG TABLET PO PRN (13:38)
--- NOTE | 2017-10-21 14:00 | NUR ---
PATIENT SEEN BY THE PHYSICAL THERAPY FOR AMBULATION WITH THE FRONT WHEEL WALKER PATIENT IS BEING PREPPED FOR DISCHARGE TO THE ACUTE REHAB TODAY.
[2017-10-21] MEDS ORDERED: MAGN400O6 PO (16:16)
[2017-10-21] MEDS ORDERED: DOXY100T2 PO (16:16)
[2017-10-21] MEDS ORDERED: ACET-1467 PO (16:16)
[2017-10-21] MEDS ORDERED: ACID1TAB4 PO (16:16)
[2017-10-21] MEDS ORDERED: ACET325T53 PO (16:16)
[2017-10-21] MEDS ORDERED: FAMO20TA8 PO (16:16)
[2017-10-21] MEDS ORDERED: GLIM1TAB PO (16:16)
[2017-10-21 16:17] VITALS: BP 109/46
--- NOTE | 2017-10-21 18:00 | NUR ---
PATIENT DISCHARGED VIA W/CHAIR WITH HER DAUGHTER PRESENT IN SATISFACTORY CONDITION WITH ALL HER PERSONAL BELONGINGS REPORT WAS GIVEN TO RYAN SEGURA.
== END 2017-10-21 18:02 | DRG 871 ==
LOC: ER 19:18 → TELE 10-17 00:17 → MED 10-18 13:55
PROVIDERS: ADMIT Internal Medicine; ATTEND Internal Medicine
PROC: 05H533Z Insertion of Infusion Device into Right Subclavian Vein, Percutaneous Approach (ICD-10-PCS; principal; 2017-10-18)
DX: A41.9 Sepsis, unspecified organism (principal); J69.0 Pneumonitis due to inhalation of food and vomit; E43 Unspecified severe protein-calorie malnutrition; I50.33 Acute on chronic diastolic (congestive) heart failure; G93.41 Metabolic encephalopathy; E83.39 Other disorders of phosphorus metabolism; I27.20 Pulmonary hypertension, unspecified; L03.116 Cellulitis of left lower limb; L03.115 Cellulitis of right lower limb; N39.0 Urinary tract infection, site not specified; Z66 Do not resuscitate; R65.20 Severe sepsis without septic shock; Z88.6 Allergy status to analgesic agent; Z88.1 Allergy status to other antibiotic agents; Z88.0 Allergy status to penicillin; Z88.2 Allergy status to sulfonamides; Z86.14 Personal history of Methicillin resistant Staphylococcus aureus infection; E11.65 Type 2 diabetes mellitus with hyperglycemia; E66.9 Obesity, unspecified; Z68.28 Body mass index [BMI] 28.0-28.9, adult; E78.5 Hyperlipidemia, unspecified; E83.42 Hypomagnesemia; I11.0 Hypertensive heart disease with heart failure; I87.2 Venous insufficiency (chronic) (peripheral); K21.9 Gastro-esophageal reflux disease without esophagitis; M48.00 Spinal stenosis, site unspecified; Z74.09 Other reduced mobility; J45.909 Unspecified asthma, uncomplicated; N32.81 Overactive bladder; Z90.49 Acquired absence of other specified parts of digestive tract; M54.30 Sciatica, unspecified side; D50.9 Iron deficiency anemia, unspecified
CPT/HCPCS: 36415; 70030-TC; 70450; 71045; 83605; 83735; 84100; 84443; 84550; 85025; 85730; 93005; 93307; A4663; J0692; J0696; J1200; J1450; J1940; J2185; J3370; J3475; J3490; J7040; J7042; J7050; J7060; J8499

== ENCOUNTER 2017-10-21 19:09 | Inpatient (IN) | payer MEDICARE, MEDICAID ==
[~2017-10-21] VITALS: Ht 152.4 cm; Wt 71.7 kg
[~2017-10-21 19:09] MED LIST changes: +ACET-1467 PO; +ACET325T53 PO; +ACID1TAB4 PO; +ALBU2.5V13 IH; -AZIL40TA PO; -BUDE10.2 INH; -CEPH500C2 PO; -CHOL200026 PO; +DIPH50VI5 IM; +DOXY100T2 PO; -ESOM40CA PO; +FAMO20TA8 PO; +FAMO20VI2 IV; +GLIM1TAB PO; +LATA2.5D2 OP; -LINA290C PO; +MAGN400O6 PO; -METH4TAB17 PO; +MONT10TA22 PO; -MONT4TAB9 PO; +PANT40TA2 PO; +PETR113P TP; +VANC1VIA IV; +[UNRECOGNIZED DRUG - REMARK] IV
--- NOTE | 2017-10-21 19:19 | NUR ---
Received patient in her room sitting on her bed and talking on her cell phone. Patient is alert and oriented x3 and able to verbalize needs. No distress or discomfort noted. No pain reported when asked. Bed in lowest position with 2/4 side rails up, and bed alarm active for safety. Call light within reach. Will continue to monitor
[2017-10-21] MEDS ORDERED: Z GUARD REMEDY PASTE 57 GM TUBE TOP PRN (21:00)
[2017-10-21 22:00] VITALS: BP 129/54
[2017-10-21] MEDS ORDERED: ACETAMINOPHEN/CODEINE 300-30 MG TABLET PO PRN (22:00)
[2017-10-21] MEDS ORDERED: MAGNESIUM HYDROXIDE 30 ML LIQUID UDC PO PRN (22:15)
[2017-10-21] MEDS ORDERED: ALBUTEROL SULFATE 2.5 MG/ 0.5 ML NEBU IH PRN (22:15)
[2017-10-21] MEDS ORDERED: ACETAMINOPHEN 325 MG TABLET PO PRN (22:15)
[2017-10-22] MEDS: MONTELUKAST SODIUM 10 MG TABLET PO SCH ×2 (00:50→20:53)
[2017-10-22 08:39] VITALS: BP 137/70
[2017-10-22] MEDS: FAMOTIDINE 20 MG TABLET PO SCH (08:50)
[2017-10-22] MEDS: ACIDOPHILUS/BULGARICUS CHEW TAB PO SCH ×2 (08:50→20:53)
[2017-10-22] MEDS: ALLOPURINOL 100 MG TABLET PO SCH (08:50)
[2017-10-22] MEDS: GLIMEPIRIDE 2 MG TABLET PO SCH ×2 (08:52→18:04)
[2017-10-22] MEDS: CINACALCET HCL 30 MG TABLET PO SCH (08:53)
[2017-10-22] MEDS: DOXYCYCLINE HYCLATE 100 MG TABLET PO SCH ×2 (08:53→20:53)
[2017-10-22] MEDS ORDERED: PANTOPRAZOLE SODIUM 40 MG TABLET.DR PO SCH (09:00)
[2017-10-22] MEDS ORDERED: Medication Not On Formulary EA (Magnesium Oxide (Magnesium) 500 MG) PO SCH (09:00)
[2017-10-22] MEDS ORDERED: Medication Not On Formulary EA (Glimepiride (Amaryl) 1 MG) PO SCH (09:00)
--- NOTE | 2017-10-22 09:59 | NUR ---
RECEIVED SHIFT REPORT FROM CONSUMER INSIGHTS INTERN NURSE. PATIENT ALERT/ORIENTEDX2. APPEARS TO BE FORGETFUL. ABLE TO AMBULATE WITH ASSISTANCE USING WALKER AND IS PENDING PT EVALUATION. STABLE CONDITION, NO S/S OF DISTRESS. VITAL SIGNS STABLE. WILL CONTINUE TO MONITOR.
[2017-10-22] MEDS: MAGNESIUM OXIDE 250 MG TABLET PO SCH ×2 (11:34→18:04)
[2017-10-22] MEDS: MYRBETRIQ 25 MG PO SCH (12:27)
[2017-10-22] MEDS: ACETAMINOPHEN/CODEINE 300-30 MG TABLET PO PRN ×2 (14:51→22:45)
--- NOTE | 2017-10-22 18:32 | NUR ---
PATIENT HAS BEEN VERY PLEASANT, STABLE CONDITION, NO S/S OF DISTRESS. ASSISTANCE PROVIDED NEEDED. CALL LIGHT WITHIN REACH, BED ALARM ON. PAIN MANAGEMENT PROVIDED FOR SHARP PAIN IN RIGHT LOWER EXTREMITIES AND RIGHT FOOT. UNDERSTANDS HOW TO USE CALL LIGHT WHEN ASSISTANCE IS NEEDED. UNSTEADY GAIT BUT ABLE TO USE WALKER TO ASSIST WITH AMBULATION, ALONG WITH ASSISTANCE BY CARE PROVIDER. PICTURES TAKEN OF BILATERAL LOWER EXTREMITIES AND PLACED IN THE CHART. WILL CONTINUE TO MONITOR AND PROVIDE REPORT TO FOLLOWING SHIFT.
--- NOTE | 2017-10-22 19:35 | NUR ---
Received pt in bed, AAO x 3 with no acute distress noted. Verbally responsive and able to make needs known. Denies pain or discomfort at this time. All safety measures and fall precautions maintained. Call light and all personal belongings within reach. Will continue to monitor.
[2017-10-22 20:39] VITALS: BP 138/69
[2017-10-22] MEDS: ATORVASTATIN 10 MG TABLET PO SCH (20:53)
[2017-10-22] MEDS: LATANOPROST OPHT DROP 2.5 ML BOTTLE EACHEYE SCH (20:53)
[2017-10-22] MEDS ORDERED: LATANOPROST OPHT DROP 2.5 ML BOTTLE OP SCH (21:00)
[2017-10-23 07:00] VITALS: BP 115/58
[2017-10-23] MEDS: ACIDOPHILUS/BULGARICUS CHEW TAB PO SCH ×2 (09:16→21:18)
[2017-10-23] MEDS: CLOPIDOGREL 75 MG TABLET PO SCH (09:16)
[2017-10-23] MEDS: CINACALCET HCL 30 MG TABLET PO SCH (09:16)
[2017-10-23] MEDS: GLIMEPIRIDE 2 MG TABLET PO SCH ×2 (09:16→17:31)
[2017-10-23] MEDS: DOXYCYCLINE HYCLATE 100 MG TABLET PO SCH ×2 (09:16→21:18)
[2017-10-23] MEDS: SPIRONOLACTONE 25 MG TABLET PO SCH (09:16)
[2017-10-23] MEDS: MYRBETRIQ 25 MG PO SCH (09:17)
[2017-10-23] MEDS: ALLOPURINOL 100 MG TABLET PO SCH (09:20)
[2017-10-23] MEDS: FAMOTIDINE 20 MG TABLET PO SCH (09:20)
--- NOTE | 2017-10-23 10:13 | NUR ---
Patient seen and examined by Dr. Talha Estrada with order to change frequency of tylenol w/ codeine #3 from Q8hrs PRN to Q6hrs PRN. Order carried out.
[2017-10-23] MEDS: MAGNESIUM OXIDE 250 MG TABLET PO SCH ×2 (11:53→18:10)
[2017-10-23] MEDS: ACETAMINOPHEN/CODEINE 300-30 MG TABLET PO PRN ×2 (12:14→22:00)
[2017-10-23 19:30] VITALS: BP 124/56
--- NOTE | 2017-10-23 19:40 | NUR ---
Received pt in bed, appearing to be asleep. Easily arousable to verbal stimuli and light touch. No acute distress noted. Denies pain or discomfort at this time. All safety measures and fall precautions maintained. Call light and all personal belongings within reach. Will continue to monitor.
[2017-10-23] MEDS: ATORVASTATIN 10 MG TABLET PO SCH (21:18)
[2017-10-23] MEDS: MONTELUKAST SODIUM 10 MG TABLET PO SCH (21:18)
[2017-10-23] MEDS: LATANOPROST OPHT DROP 2.5 ML BOTTLE EACHEYE SCH (21:18)
[2017-10-23] MEDS ORDERED: METOCLOPRAMIDE HCL 10 MG/2 ML VIAL IV ONE (23:30)
[2017-10-23] MEDS ORDERED: PANTOPRAZOLE SODIUM 40 MG VIAL IV ONE (23:30)
--- NOTE | 2017-10-23 23:52 | NUR ---
Patient began complaining of heartburn after taking PM meds. Elevated HOB to high ferreira's. After 30 mins, patient continued to complain of heartburn. VS WNL, no acute distress. MD notified, new orders of Protonix IV and Reglan IV x 1 now - orders noted and carried out. Tolerated well. Safety maintained. Call light within reach. Will continue to monitor.
--- NOTE | 2017-10-24 06:33 | NUR ---
Pt slept comfortably for the rest of the evening. No further complaints of pain or discomfort. All needs well anticipated and met accordingly. All medications given per MD, tolerated well. Medicated for pain PRN. Kept clean and dry. No acute distress. Safety maintained. Call light within reach. Will continue to monitor. Will endorse to AM shift.
[2017-10-24 07:30] VITALS: BP 134/61
--- NOTE | 2017-10-24 07:50 | NUR ---
Patient noted resting in bed with eyes closed, assisted to restroom at this time for oral care and back to bed, complains of pain /10 but denies pain medication, no signs of distress, call light in reach, bed locked and in lowest position, x 2 bed rails, bed alarm in place, all needs met at this time
[2017-10-24] MEDS: MYRBETRIQ 25 MG PO SCH (08:53)
[2017-10-24] MEDS: CINACALCET HCL 30 MG TABLET PO SCH (08:54)
[2017-10-24] MEDS: ACETAMINOPHEN/CODEINE 300-30 MG TABLET PO PRN ×3 (08:54→23:50)
[2017-10-24] MEDS: ALLOPURINOL 100 MG TABLET PO SCH (08:54)
[2017-10-24] MEDS: GLIMEPIRIDE 2 MG TABLET PO SCH ×2 (08:54→17:22)
[2017-10-24] MEDS: PANTOPRAZOLE SODIUM 40 MG VIAL IV SCH (08:55)
[2017-10-24] MEDS: FAMOTIDINE 20 MG TABLET PO SCH (08:55)
[2017-10-24] MEDS: DOXYCYCLINE HYCLATE 100 MG TABLET PO SCH ×2 (08:55→21:04)
[2017-10-24] MEDS: ACIDOPHILUS/BULGARICUS CHEW TAB PO SCH ×2 (08:55→21:04)
[2017-10-24 11:11] LABS: BASOPHILS # (AUTO) 0.1 K/uL (0.0-8.0); BASOPHILS % (AUTO) 1.1 % (0.0-2.0); EOSINOPHILS # (AUTO) 0.3 K/uL (0.0-0.7); EOSINOPHILS % (AUTO) 2.7 % (0.0-7.0); HEMATOCRIT 32.5 % (31.2-41.9); HEMOGLOBIN 10.8 g/dL (10.9-14.3); LYMPHOCYTES # (AUTO) 2.1 K/uL (20.0-40.0); LYMPHOCYTES % (AUTO) 16.2 % (20.5-51.5); MEAN CORPUSCULAR HEMOGLOBIN 27.3 uug (24.7-32.8); MEAN CORPUSCULAR HGB CONC 33 g/dL (32.3-35.6); MEAN CORPUSCULAR VOLUME 82.4 fL (75.5-95.3); MONOCYTES # (AUTO) 1.2 K/uL (2.0-10.0); MONOCYTES % (AUTO) 8.8 % (0.0-11.0); NEUTROPHILS # (AUTO) 9.3 K/uL (1.8-8.9); NEUTROPHILS % (AUTO) 71.2 % (38.5-71.5); PLATELET COUNT (AUTO) 568 K/uL (179-408); RED BLOOD CELL COUNT(AUTO) 3.95 MIL/uL (3.63-4.92); WHITE BLOOD COUNT (AUTO) 13.1 K/uL (3.8-11.8)
[2017-10-24 11:29] LABS: ALANINE AMINOTRANSFERASE 14 U/L (14-59); ALKALINE PHOSPHATASE 77 U/L (50-136); ASPARTATE AMINOTRANSFERASE 19 U/L (15-37); BILIRUBIN,TOTAL 0.4 mg/dL (0.2-1.0); CARBON DIOXIDE 28 mmol/L (21-32); CHLORIDE 97 mmol/L (98-107); CREATININE 1.5 mg/dL (0.6-1.3); GLUCOSE 140 mg/dL (74-106); POTASSIUM 4.2 mmol/L (3.5-5.1); TOTAL PROTEIN, SERUM 6.5 g/dL (6.4-8.2); UREA NITROGEN, BLOOD 25 mg/dL (7-18)
[2017-10-24] MEDS: MAGNESIUM OXIDE 250 MG TABLET PO SCH ×2 (11:49→18:31)
--- NOTE | 2017-10-24 19:55 | NUR ---
Received pt in bed, on her tablet reading. AAO x 4 with no acute distress noted. Verbally responsive and able to make needs known. Denies pain or discomfort at this time. All safety measures and fall precautions maintained. Call light and all personal belongings within reach. Will continue to monitor.
[2017-10-24 20:31] VITALS: BP 122/62
[2017-10-24] MEDS: LATANOPROST OPHT DROP 2.5 ML BOTTLE EACHEYE SCH (21:03)
[2017-10-24] MEDS: ATORVASTATIN 10 MG TABLET PO SCH (21:03)
[2017-10-24] MEDS: MONTELUKAST SODIUM 10 MG TABLET PO SCH (21:04)
[2017-10-25 07:30] VITALS: BP 130/57
--- NOTE | 2017-10-25 09:30 | NUR ---
Received patient sitting up in bed, eating breakfast. Tolerated medications well. Not in any pain. Right upper midline patent and intact. Flushed accordingly.
[2017-10-25] MEDS: GLIMEPIRIDE 2 MG TABLET PO SCH ×2 (09:48→18:09)
[2017-10-25] MEDS: CINACALCET HCL 30 MG TABLET PO SCH (09:49)
[2017-10-25] MEDS: DOXYCYCLINE HYCLATE 100 MG TABLET PO SCH ×2 (09:49→20:25)
[2017-10-25] MEDS: FAMOTIDINE 20 MG TABLET PO SCH (09:49)
[2017-10-25] MEDS: ALLOPURINOL 100 MG TABLET PO SCH (09:49)
[2017-10-25] MEDS: ACIDOPHILUS/BULGARICUS CHEW TAB PO SCH ×2 (09:49→20:25)
[2017-10-25] MEDS: CLOPIDOGREL 75 MG TABLET PO SCH (09:49)
[2017-10-25] MEDS: SPIRONOLACTONE 25 MG TABLET PO SCH (09:49)
[2017-10-25] MEDS: MYRBETRIQ 25 MG PO SCH (09:50)
[2017-10-25] MEDS: PANTOPRAZOLE SODIUM 40 MG VIAL IV SCH (09:50)
[2017-10-25] MEDS: MAGNESIUM OXIDE 250 MG TABLET PO SCH ×2 (10:27→18:09)
[2017-10-25] MEDS: ACETAMINOPHEN/CODEINE 300-30 MG TABLET PO PRN ×2 (13:20→21:49)
--- NOTE | 2017-10-25 13:23 | NUR ---
Pain over lower back and shoulders, rated as 10/10. Tylenol 3 PRN given
--- NOTE | 2017-10-25 14:16 | NUR ---
INTERDISCIPLINARY TEAM CONFERENCE
--- NOTE | 2017-10-25 18:00 | NUR ---
Patient with pain over left hip, refuses pain medications and claims she wants to take it tonight. Activity and ADLs tolerated throughout the day.
--- NOTE | 2017-10-25 19:50 | NUR ---
Pt sleeping comfortably in bed. Arouses easily when called by name. No acute distress noted. No c/o pain or discomfort. Safety measures maintained. Call light and personal belongings within reach. Will continue to monitor.
[2017-10-25] MEDS: MONTELUKAST SODIUM 10 MG TABLET PO SCH (20:25)
[2017-10-25] MEDS: LATANOPROST OPHT DROP 2.5 ML BOTTLE EACHEYE SCH (20:25)
[2017-10-25] MEDS: ATORVASTATIN 10 MG TABLET PO SCH (20:25)
[2017-10-25 20:47] VITALS: BP 124/63
--- NOTE | 2017-10-26 05:47 | NUR ---
Pt slept comfortably t/o the night. Meds given per MD's order. Pt has been compliant. Assisted to the bathroom as needed. All needs attended to promptly. Contact isolation maintained. Will endorse to day shift RN. Continue to monitor.
[2017-10-26] MEDS: PANTOPRAZOLE SODIUM 40 MG TABLET.DR PO SCH (06:21)
[2017-10-26] MEDS: GLIMEPIRIDE 2 MG TABLET PO SCH ×2 (07:58→17:51)
[2017-10-26] MEDS: FAMOTIDINE 20 MG TABLET PO SCH (08:02)
[2017-10-26] MEDS: ACIDOPHILUS/BULGARICUS CHEW TAB PO SCH ×2 (08:02→20:48)
[2017-10-26] MEDS: ALLOPURINOL 100 MG TABLET PO SCH (08:02)
[2017-10-26] MEDS: CINACALCET HCL 30 MG TABLET PO SCH (08:03)
[2017-10-26 08:09] VITALS: BP 126/53
[2017-10-26] MEDS: MYRBETRIQ 25 MG PO SCH (09:20)
[2017-10-26] MEDS: ACETAMINOPHEN/CODEINE 300-30 MG TABLET PO PRN ×2 (10:19→21:34)
[2017-10-26] MEDS: MAGNESIUM OXIDE 250 MG TABLET PO SCH ×2 (11:31→18:01)
--- NOTE | 2017-10-26 17:25 | NUR ---
PATIENT BEEN SLEEPING INTERMITTENTLY. NO S/S OF DISTRESS NOTED DURING MY SHIFT. ELEVATED LEG WITH PILLOWS AND NOTIFIED DOCTOR ABOUT THE EDEMA ON THE LOWER EXTREMITIES. SAFETY AND COMFORT PROVIDED BY STAFF DURING MY SHIFT. WILL CONTINUE MONITORING.
[2017-10-26 19:30] VITALS: BP 129/64
--- NOTE | 2017-10-26 19:30 | NUR ---
Received patient in bed. Alert and verbally responsive. Able to make needs known. Denies any pain and discomfort at this time. No acute distress. No SOB. Patient remains on contact isolation for MRSA urine. All contract precautions taken. Patient noted with edema on both lower extremities. Kept elevated with pillows. Ambulates to bathroom with walker. Kept clean and dry. All needs attended to promptly. Call light within reach. Will continue to monitor.
[2017-10-26] MEDS: MONTELUKAST SODIUM 10 MG TABLET PO SCH (20:48)
[2017-10-26] MEDS: ATORVASTATIN 10 MG TABLET PO SCH (20:48)
[2017-10-26] MEDS: LATANOPROST OPHT DROP 2.5 ML BOTTLE EACHEYE SCH (20:56)
[2017-10-27] MEDS: diphenhydrAMINE 25 MG CAP PO PRN (03:05)
[2017-10-27] MEDS: PANTOPRAZOLE SODIUM 40 MG TABLET.DR PO SCH (06:17)
--- NOTE | 2017-10-27 06:46 | NUR ---
Patient slept comfortably throughout the night. Pain medicine given as needed. No c/o pain and discomfort. No acute distress. No SOB. C/o itching on back. Benadryl given as needed. Tolerated well. Relief given. Kept clean and dry. Contact precautions taken. Both lower extremities kept elevated. All needs attended to promptly. Call light within reach. Will continue to monitor.
[2017-10-27 06:53] LABS: BASOPHILS # (AUTO) 0.1 K/uL (0.0-8.0); BASOPHILS % (AUTO) 1.2 % (0.0-2.0); EOSINOPHILS # (AUTO) 0.5 K/uL (0.0-0.7); HEMOGLOBIN 9.7 g/dL (10.9-14.3); LYMPHOCYTES # (AUTO) 2.6 K/uL (20.0-40.0); LYMPHOCYTES % (AUTO) 26.1 % (20.5-51.5); MEAN CORPUSCULAR HGB CONC 34 g/dL (32.3-35.6); MEAN CORPUSCULAR VOLUME 83.3 fL (75.5-95.3); MONOCYTES # (AUTO) 1.1 K/uL (2.0-10.0); MONOCYTES % (AUTO) 10.7 % (0.0-11.0); NEUTROPHILS # (AUTO) 5.7 K/uL (1.8-8.9); PLATELET COUNT (AUTO) 447 K/uL (179-408); RED BLOOD CELL COUNT(AUTO) 3.46 MIL/uL (3.63-4.92)
[2017-10-27 07:03] LABS: CARBON DIOXIDE 28 mmol/L (21-32); CHLORIDE 102 mmol/L (98-107); CREATININE 1.4 mg/dL (0.6-1.3); GLUCOSE 54 mg/dL (74-106); POTASSIUM 4.3 mmol/L (3.5-5.1); UREA NITROGEN, BLOOD 20 mg/dL (7-18)
[2017-10-27 07:07] LABS: HEMATOCRIT 28.8 % (31.2-41.9)
[2017-10-27 08:00] VITALS: BP 132/52
--- NOTE | 2017-10-27 08:03 | NUR ---
Received patient awake, alert x4. Resting in bed. Intact midline over right upper arm. With generalized pain refused pain medications at this time. Call light within reach, bed in low locked position.
[2017-10-27 08:17] LABS: BAND % (MANUAL) 1 % (0-10); BASOPHILS % (MANUAL) 1 % (0-2); EOSINOPHILS % (MANUAL) 5 % (0-8); LYMPHOCYTES % (MANUAL) 27 % (20-40); MONOCYTES % (MANUAL) 10 % (2-10); MYELOCYTES % 2 % (0-0); NEUTROPHILS % (MANUAL) 54 % (42-75)
[2017-10-27] MEDS: CINACALCET HCL 30 MG TABLET PO SCH (09:08)
[2017-10-27] MEDS: GLIMEPIRIDE 2 MG TABLET PO SCH ×2 (09:08→18:30)
[2017-10-27] MEDS: ACIDOPHILUS/BULGARICUS CHEW TAB PO SCH ×2 (09:08→20:39)
[2017-10-27] MEDS: MYRBETRIQ 25 MG PO SCH (09:09)
[2017-10-27] MEDS: ALLOPURINOL 100 MG TABLET PO SCH (09:09)
[2017-10-27] MEDS: SPIRONOLACTONE 25 MG TABLET PO SCH (09:09)
[2017-10-27] MEDS: CLOPIDOGREL 75 MG TABLET PO SCH (09:09)
[2017-10-27] MEDS: FAMOTIDINE 20 MG TABLET PO SCH (09:09)
[2017-10-27] MEDS: ACETAMINOPHEN/CODEINE 300-30 MG TABLET PO PRN ×3 (09:25→20:39)
--- NOTE | 2017-10-27 09:30 | NUR ---
Up with Occupational Therapy, tolerating well. offered pain medications but patient refused.
[2017-10-27] MEDS: MAGNESIUM OXIDE 250 MG TABLET PO SCH ×2 (11:02→18:30)
--- NOTE | 2017-10-27 13:00 | NUR ---
Pain over shoulders and right leg to hip. Rated as 10/10. PRN pain medications given.
--- NOTE | 2017-10-27 19:30 | NUR ---
Pt resting comfortably in bed. AAO x4. No acute distress noted. C/o of generalized pain but refusing pain meds at this time. Will f/u with interventions. Safety measures maintained. Isolation observed. Call light and personal belongings within reach. Will continue to monitor.
[2017-10-27 20:15] VITALS: BP 120/57
[2017-10-27] MEDS: MONTELUKAST SODIUM 10 MG TABLET PO SCH (20:39)
[2017-10-27] MEDS: ATORVASTATIN 10 MG TABLET PO SCH (20:39)
[2017-10-27] MEDS: LATANOPROST OPHT DROP 2.5 ML BOTTLE EACHEYE SCH (20:46)
--- NOTE | 2017-10-28 05:40 | NUR ---
Pt slept comfortably at night. Meds given per MD's order. Assisted to the bathroom as needed. All needs attended to promptly. Will endorse to day shift RN. Continue to monitor.
[2017-10-28] MEDS: PANTOPRAZOLE SODIUM 40 MG TABLET.DR PO SCH (06:26)
[2017-10-28 08:07] VITALS: BP 142/51
[2017-10-28] MEDS: ALLOPURINOL 100 MG TABLET PO SCH (08:16)
[2017-10-28] MEDS: FAMOTIDINE 20 MG TABLET PO SCH (08:16)
[2017-10-28] MEDS: ACIDOPHILUS/BULGARICUS CHEW TAB PO SCH ×2 (08:16→20:38)
[2017-10-28] MEDS: CINACALCET HCL 30 MG TABLET PO SCH (08:16)
[2017-10-28] MEDS: GLIMEPIRIDE 2 MG TABLET PO SCH ×2 (08:17→17:01)
[2017-10-28] MEDS: MYRBETRIQ 25 MG PO SCH (08:17)
--- NOTE | 2017-10-28 08:57 | NUR ---
pt seen on rounding. pt continues to be alert and oriented. pt states that she is freezing. vitals assessed. bp elevated. legs are swollen due to chronic cellulities on legs. md aware. no new orders. pt took meds as prescribed. and ate breakfast. will continue to monitor.
[2017-10-28] MEDS: MAGNESIUM OXIDE 250 MG TABLET PO SCH ×2 (11:29→18:40)
[2017-10-28] MEDS: ACETAMINOPHEN/CODEINE 300-30 MG TABLET PO PRN ×2 (12:48→21:04)
[2017-10-28] MEDS ORDERED: LORATADINE 10 MG TABLET PO PRN (15:00)
--- NOTE | 2017-10-28 17:51 | NUR ---
pt stable throughout the day. legs continue to swell. feet elevated. pt complained of itching. pt given claritin as ordered. will endorse to shift supervisor nurse.
--- NOTE | 2017-10-28 19:30 | NUR ---
Received patient seated on bed, awake, alert and verbally responsive. Assisted patient to the restroom, able to void. Assisted patient back to bed. Vital signs taken and recorded. No SOB or acute distress noted. Complained of generalized pain 10/10. Will give pain meds. Pertinent assessment completed. Safety measures provided, bed in low position x2 side rails up and bed alarm on. call light placed within reach of pt. will continue to monitor pt through shift.
[2017-10-28 20:31] VITALS: BP 131/61
[2017-10-28] MEDS: ATORVASTATIN 10 MG TABLET PO SCH (20:37)
[2017-10-28] MEDS: LATANOPROST OPHT DROP 2.5 ML BOTTLE EACHEYE SCH (20:37)
[2017-10-28] MEDS: MONTELUKAST SODIUM 10 MG TABLET PO SCH (20:37)
[2017-10-28] MEDS: DEXAMETHASONE SOD PHOSPHATE 4 MG INJ IV SCH (22:02)
[2017-10-29] MEDS: diphenhydrAMINE 25 MG CAP PO PRN (01:48)
--- NOTE | 2017-10-29 01:50 | NUR ---
Patient complained that she was itching all over her body. V/S taken; BP 133/65, T 97.6, P 74, R 19, O2 sat 96%. Benadryl 25mg PO given. will monitor the patient.
[2017-10-29] MEDS: DEXAMETHASONE SOD PHOSPHATE 4 MG INJ IV SCH ×3 (06:05→22:32)
--- NOTE | 2017-10-29 06:59 | NUR ---
Patient refused to take her Protonix/Pantoprazole 40 mg PO. Offered 3x but still refused. Will endorse to Am shift.
[2017-10-29 08:00] VITALS: BP 137/64
[2017-10-29] MEDS: PANTOPRAZOLE SODIUM 40 MG TABLET.DR PO SCH (08:30)
[2017-10-29] MEDS: MYRBETRIQ 25 MG PO SCH (08:31)
[2017-10-29] MEDS: GLIMEPIRIDE 2 MG TABLET PO SCH ×2 (08:31→17:17)
[2017-10-29] MEDS: ACIDOPHILUS/BULGARICUS CHEW TAB PO SCH ×2 (08:31→20:58)
[2017-10-29] MEDS: SPIRONOLACTONE 25 MG TABLET PO SCH (08:31)
[2017-10-29] MEDS: FAMOTIDINE 20 MG TABLET PO SCH (08:31)
[2017-10-29] MEDS: CINACALCET HCL 30 MG TABLET PO SCH (08:31)
[2017-10-29] MEDS: ALLOPURINOL 100 MG TABLET PO SCH (08:31)
[2017-10-29] MEDS: CLOPIDOGREL 75 MG TABLET PO SCH (08:31)
--- NOTE | 2017-10-29 08:33 | NUR ---
Received patient awake, verbally responsive, not in any form of acute distress. Denies any pain or discomfort at this time. Assisted to bathroom. Addendum: 10/29/17 at 0845 by EUGENE ROJAS RN and assisted back to bed. Call light placed within reach. Reminded to use call light when in need of assistance with verbalized understanding.
[2017-10-29] MEDS: MAGNESIUM OXIDE 250 MG TABLET PO SCH ×2 (11:09→18:21)
[2017-10-29] MEDS: ACETAMINOPHEN/CODEINE 300-30 MG TABLET PO PRN ×2 (13:13→22:43)
--- NOTE | 2017-10-29 20:15 | NUR ---
Received pt in bed, seated at the edge of the bed, awake, alert and verbally responsive. Verbally responsive and able to make needs known. Vital signs taken and recorded. Verbally responsive and able to make needs known. Denies pain or discomfort at this time. No complains of any itchiness. Seen by MD Dr. Andre, no new orders. All safety measures and fall precautions maintained. Call light and all personal belongings within reach. Will continue to monitor.
[2017-10-29 20:16] VITALS: BP 144/60
[2017-10-29] MEDS: LATANOPROST OPHT DROP 2.5 ML BOTTLE EACHEYE SCH (20:57)
[2017-10-29] MEDS: ATORVASTATIN 10 MG TABLET PO SCH (20:58)
[2017-10-29] MEDS: MONTELUKAST SODIUM 10 MG TABLET PO SCH (20:58)
[2017-10-29 22:59] LABS: *BILIRUBIN,URIN NEGATIVE (NEGATIVE); *BLOOD, URINE NEGATIVE (NEGATIVE); *CLARITY,URINE CLEAR (CLEAR); *COLOR,URINE YELLOW (YELLOW); *KETONES,URINE NEGATIVE (NEGATIVE); *PROTEIN,URINE NEGATIVE (NEGATIVE); *UROBILINOGEN,URINE 0.2 E.U./dl (NORMAL); LEUKOCYTE ESTERASE ,URINE NEGATIVE (NEGATIVE); NITRITE, URINE NEGATIVE (NEGATIVE); PH,URINE 6.5 (5.0-8.0)
[2017-10-29 23:03] LABS: UGLUCOSE 2+ (NEGATIVE)
[2017-10-29 23:22] LABS: BACTERIA,URINE NONE SEEN /HPF (NONE SEEN); MUCUS,URINE FEW /LPF (0-FEW); RBC,URINE NONE SEEN /HPF (0-3); SQUAMOUS EPITHELIAL CELL,UR FEW /HPF (NONE SEEN)
[2017-10-30] MEDS: diphenhydrAMINE 25 MG CAP PO PRN (02:13)
--- NOTE | 2017-10-30 02:15 | NUR ---
Patient complained she started itching all over her body again. Will give Benadryl 25mg PO tab. will continue to monitor the patient.
--- NOTE | 2017-10-30 04:54 | NUR ---
Patient still complaining of her itching all over her body. V/S taken BP 124/65, T 97.7, HR 75, RR 19,O2 sat 98%. will call business risk consultant MD and will continue to monitor the patient.
[2017-10-30] MEDS: DEXAMETHASONE SOD PHOSPHATE 4 MG INJ IV SCH (06:00)
--- NOTE | 2017-10-30 08:00 | NUR ---
RECEIVED PATIENT ASLEEP, EASILY AROUSABLE, VERBALLY RESPONSIVE, WITH NO COMPLAIN OF PAIN OR DISCOMFORT. CALL LIGHT PLACED WITHIN REACH.
[2017-10-30 08:10] VITALS: BP 137/58
[2017-10-30] MEDS: PANTOPRAZOLE SODIUM 40 MG TABLET.DR PO SCH (08:27)
[2017-10-30] MEDS: GLIMEPIRIDE 2 MG TABLET PO SCH ×2 (08:28→17:12)
[2017-10-30] MEDS: CINACALCET HCL 30 MG TABLET PO SCH (08:28)
[2017-10-30] MEDS: FAMOTIDINE 20 MG TABLET PO SCH (08:28)
[2017-10-30] MEDS: ALLOPURINOL 100 MG TABLET PO SCH (08:28)
[2017-10-30] MEDS: MYRBETRIQ 25 MG PO SCH (08:29)
[2017-10-30] MEDS: ACIDOPHILUS/BULGARICUS CHEW TAB PO SCH ×2 (08:29→20:40)
--- NOTE | 2017-10-30 10:18 | NUR ---
PATIENT SEEN AND EXAMINED BY DR. BENNETT WITH ORDER TO DISCONTINUE DECADRON IV AND TO START ON METHYLPREDNISOLONE 4MG PO DAILY. ORDER CARRIED OUT.
[2017-10-30] MEDS: MAGNESIUM OXIDE 250 MG TABLET PO SCH ×2 (10:47→18:00)
[2017-10-30] MEDS: methylPREDNISolone 4 MG TABLET PO SCH (10:47)
--- NOTE | 2017-10-30 11:05 | NUR ---
Patient up with physical therapist ambulating with walker. No complain at this time.
[2017-10-30] MEDS: ACETAMINOPHEN/CODEINE 300-30 MG TABLET PO PRN ×2 (12:48→22:31)
--- NOTE | 2017-10-30 19:30 | NUR ---
Received patient in bed, awake, alert and was watching TV. Patient is A/O x3, able to make needs known. Vital signs taken and recorded. Denies of any pain or any itchiness. No acute respiratory distress noted. Pertinent assessment done. Call light in reach. will monitor the patient.
[2017-10-30 20:12] VITALS: BP 138/66
[2017-10-30] MEDS: ATORVASTATIN 10 MG TABLET PO SCH (20:40)
[2017-10-30] MEDS: LATANOPROST OPHT DROP 2.5 ML BOTTLE EACHEYE SCH (20:40)
[2017-10-30] MEDS: MONTELUKAST SODIUM 10 MG TABLET PO SCH (20:40)
[2017-10-31] MEDS: PANTOPRAZOLE SODIUM 40 MG TABLET.DR PO SCH (06:08)
[2017-10-31 08:00] VITALS: BP 110/45
[2017-10-31] MEDS: SPIRONOLACTONE 25 MG TABLET PO SCH (08:34)
[2017-10-31] MEDS: CLOPIDOGREL 75 MG TABLET PO SCH (08:34)
[2017-10-31] MEDS: ALLOPURINOL 100 MG TABLET PO SCH (08:34)
[2017-10-31] MEDS: FAMOTIDINE 20 MG TABLET PO SCH (08:34)
[2017-10-31] MEDS: ACIDOPHILUS/BULGARICUS CHEW TAB PO SCH ×2 (08:34→20:37)
[2017-10-31] MEDS: GLIMEPIRIDE 2 MG TABLET PO SCH ×2 (08:34→17:10)
[2017-10-31] MEDS: CINACALCET HCL 30 MG TABLET PO SCH (08:34)
[2017-10-31] MEDS: methylPREDNISolone 4 MG TABLET PO SCH (08:35)
[2017-10-31] MEDS: MYRBETRIQ 25 MG PO SCH (08:36)
--- NOTE | 2017-10-31 10:00 | NUR ---
Pain over shoulders and right hip rated as 7/10. PRN Tylenol #3 given
[2017-10-31] MEDS: ACETAMINOPHEN/CODEINE 300-30 MG TABLET PO PRN ×2 (10:37→21:02)
[2017-10-31] MEDS: MAGNESIUM OXIDE 250 MG TABLET PO SCH ×2 (10:37→18:30)
--- NOTE | 2017-10-31 10:38 | NUR ---
Received patient sitted on bed. Awake alert x4.
--- NOTE | 2017-10-31 19:59 | NUR ---
received patient alert and oriented x4 . sitting at the side of the bed. needs attended. on contact isolation, MRSA urine. Needs attended. vital signs stable. will monitor patient. ambulates to the BR with supervision. Seen by Dr Martin. c/o of itching and redness on upper extremities. Ordered some lotrimin cream, awaiting for pharmacy to bring.
[2017-10-31 20:04] VITALS: BP 137/67
[2017-10-31] MEDS: MONTELUKAST SODIUM 10 MG TABLET PO SCH (20:37)
[2017-10-31] MEDS: CLOTRIMAZOLE 1% CREAM 30 GM TUBE TOP SCH (20:37)
[2017-10-31] MEDS: ATORVASTATIN 10 MG TABLET PO SCH (20:37)
[2017-10-31] MEDS: LATANOPROST OPHT DROP 2.5 ML BOTTLE EACHEYE SCH (20:38)
[2017-11-01] MEDS: PANTOPRAZOLE SODIUM 40 MG TABLET.DR PO SCH (06:21)
[2017-11-01 08:12] VITALS: BP 149/64
[2017-11-01] MEDS: ACIDOPHILUS/BULGARICUS CHEW TAB PO SCH ×2 (09:13→20:54)
[2017-11-01] MEDS: FAMOTIDINE 20 MG TABLET PO SCH (09:13)
[2017-11-01] MEDS: ALLOPURINOL 100 MG TABLET PO SCH (09:13)
[2017-11-01] MEDS: ACETAMINOPHEN/CODEINE 300-30 MG TABLET PO PRN ×3 (09:13→21:00)
[2017-11-01] MEDS: GLIMEPIRIDE 2 MG TABLET PO SCH ×2 (09:13→17:23)
[2017-11-01] MEDS: CINACALCET HCL 30 MG TABLET PO SCH (09:13)
[2017-11-01] MEDS: CLOTRIMAZOLE 1% CREAM 30 GM TUBE TOP SCH ×2 (09:14→20:55)
[2017-11-01] MEDS: MYRBETRIQ 25 MG PO SCH (09:14)
[2017-11-01] MEDS: methylPREDNISolone 4 MG TABLET PO SCH (09:15)
[2017-11-01] MEDS: MAGNESIUM OXIDE 250 MG TABLET PO SCH ×2 (09:15→17:24)
--- NOTE | 2017-11-01 13:13 | NUR ---
INTERDISCIPLINARY TEAM CONFERENCE
[2017-11-01 19:30] VITALS: BP 144/64
--- NOTE | 2017-11-01 19:30 | NUR ---
Received patient from day shift nurse. Report at bedside. Patient currently sitting at edge of bed comfortably. Patient is A/O x4, Barbadian speaking, able to make needs known. No current signs of pain, sob, or acute distress. Vital signs within range at start of shift. Pertinent assessment completed. Noted with RUE midline which is flushable, patent, clean, no s/s of infiltration or redness at IV site. Bed in low position x2 side rails up. Call light within reach. Will continue to monitor through shift.
[2017-11-01] MEDS: ATORVASTATIN 10 MG TABLET PO SCH (20:54)
[2017-11-01] MEDS: MONTELUKAST SODIUM 10 MG TABLET PO SCH (20:54)
[2017-11-01] MEDS: LATANOPROST OPHT DROP 2.5 ML BOTTLE EACHEYE SCH (20:55)
--- NOTE | 2017-11-02 05:52 | NUR ---
Patient stable through shift. No acute distress noted. Slept well through out the shift. All needs attended to. All meds administered as ordered per MD. Safety measures implemented. Call light within reach. will endorse to day shift nurse.
[2017-11-02] MEDS: PANTOPRAZOLE SODIUM 40 MG TABLET.DR PO SCH (06:32)
[2017-11-02 07:00] VITALS: BP 132/62
[2017-11-02] MEDS: GLIMEPIRIDE 2 MG TABLET PO SCH ×2 (08:48→18:29)
[2017-11-02] MEDS: FAMOTIDINE 20 MG TABLET PO SCH (08:48)
[2017-11-02] MEDS: CLOPIDOGREL 75 MG TABLET PO SCH (08:48)
[2017-11-02] MEDS: CINACALCET HCL 30 MG TABLET PO SCH (08:49)
[2017-11-02] MEDS: SPIRONOLACTONE 25 MG TABLET PO SCH (08:49)
[2017-11-02] MEDS: ALLOPURINOL 100 MG TABLET PO SCH (08:49)
[2017-11-02] MEDS: ACIDOPHILUS/BULGARICUS CHEW TAB PO SCH ×2 (08:49→20:07)
[2017-11-02] MEDS: methylPREDNISolone 4 MG TABLET PO SCH (08:50)
[2017-11-02] MEDS: MYRBETRIQ 25 MG PO SCH (08:51)
[2017-11-02] MEDS: MAGNESIUM OXIDE 250 MG TABLET PO SCH ×2 (08:51→18:29)
[2017-11-02] MEDS: CLOTRIMAZOLE 1% CREAM 30 GM TUBE TOP SCH ×2 (08:52→20:09)
[2017-11-02] MEDS: ACETAMINOPHEN/CODEINE 300-30 MG TABLET PO PRN ×2 (13:19→21:19)
--- NOTE | 2017-11-02 19:30 | NUR ---
Pt resting comfortably in bed. AAO x4. No acute distress noted. No c/o pain or discomfort at this time. Pt stated to be excited to be going home tomorrow. Safety measures and isolation maintained. Call light and personal belongings within reach. Will continue to monitor.
[2017-11-02 19:40] VITALS: BP 120/51
[2017-11-02] MEDS: ATORVASTATIN 10 MG TABLET PO SCH (20:07)
[2017-11-02] MEDS: LATANOPROST OPHT DROP 2.5 ML BOTTLE EACHEYE SCH (20:07)
[2017-11-02] MEDS: MONTELUKAST SODIUM 10 MG TABLET PO SCH (20:07)
--- NOTE | 2017-11-03 05:34 | NUR ---
Pt slept comfortably at night. Meds given per MD's order. Assisted to the bathroom as needed. All needs attended to promptly. Med recon for discharge done by Dr. Ny. Daughter wants to pick up truck driver patient early around 9am to 10am. Will endorse to day shift RN. Continue to monitor.
[2017-11-03] MEDS: PANTOPRAZOLE SODIUM 40 MG TABLET.DR PO SCH (06:15)
--- NOTE | 2017-11-03 07:21 | NUR ---
I AGREE Addendum: 11/03/17 at 0721 by MATTEO GARZA OT Amended: Links added.
--- NOTE | 2017-11-03 07:22 | NUR ---
I AGREE Addendum: 11/03/17 at 0722 by MATTEO GARZA OT Amended: Links added.
[2017-11-03 07:44] VITALS: BP_SYST 138
[2017-11-03] MEDS: GLIMEPIRIDE 2 MG TABLET PO SCH (08:00)
[2017-11-03] MEDS: CINACALCET HCL 30 MG TABLET PO SCH (08:48)
[2017-11-03] MEDS: ACIDOPHILUS/BULGARICUS CHEW TAB PO SCH (08:48)
[2017-11-03] MEDS: MYRBETRIQ 25 MG PO SCH (08:48)
[2017-11-03] MEDS: ALLOPURINOL 100 MG TABLET PO SCH (08:48)
[2017-11-03] MEDS: FAMOTIDINE 20 MG TABLET PO SCH (08:48)
[2017-11-03] MEDS: CLOTRIMAZOLE 1% CREAM 30 GM TUBE TOP SCH (08:48)
[2017-11-03] MEDS: methylPREDNISolone 4 MG TABLET PO SCH (08:48)
--- NOTE | 2017-11-03 08:51 | NUR ---
MEDICATIONS REFUSED HER MEDS FOR THIS AM SHE IS GOING HOME AT 1000 SHE SAYS SHE WILL TAKE HER MEDS WHEN SHE GOES HOME THE WAY SHE IS USED TO TAKING THEM. MEDS RETURNED.
== END 2017-11-03 10:49 | disposition home health service (06) | DRG 177 ==
LOC: TELE1 19:11
PROVIDERS: ADMIT Physical Medicine & Rehabilitation Pain Medicine; ATTEND Physical Medicine & Rehabilitation Pain Medicine
DX: J69.0 Pneumonitis due to inhalation of food and vomit (principal); G93.41 Metabolic encephalopathy; E43 Unspecified severe protein-calorie malnutrition; J96.11 Chronic respiratory failure with hypoxia; D68.59 Other primary thrombophilia; E11.65 Type 2 diabetes mellitus with hyperglycemia; I11.0 Hypertensive heart disease with heart failure; I50.32 Chronic diastolic (congestive) heart failure; D32.9 Benign neoplasm of meninges, unspecified; D50.9 Iron deficiency anemia, unspecified; I87.2 Venous insufficiency (chronic) (peripheral); J45.909 Unspecified asthma, uncomplicated; K21.9 Gastro-esophageal reflux disease without esophagitis; L30.9 Dermatitis, unspecified; M48.00 Spinal stenosis, site unspecified; Z87.440 Personal history of urinary (tract) infections; R20.2 Paresthesia of skin; R21 Rash and other nonspecific skin eruption; R26.81 Unsteadiness on feet; E66.9 Obesity, unspecified; Z68.30 Body mass index [BMI] 30.0-30.9, adult; F32.9 Major depressive disorder, single episode, unspecified; G31.84 Mild cognitive impairment of uncertain or unknown etiology; F41.9 Anxiety disorder, unspecified; M19.90 Unspecified osteoarthritis, unspecified site; M54.40 Lumbago with sciatica, unspecified side; Z66 Do not resuscitate; Z79.52 Long term (current) use of systemic steroids
CPT/HCPCS: 36415; 70030-TC; 85025; 87077; 87086; 92523; 97110; 97112; 97116; 97530; 97535; A4663; C9113; J1100; J2765; J7509; J8499; Q0163

== ENCOUNTER 2018-01-27 17:57 | Inpatient (IN) | payer MEDICARE, MEDICAID ==
[~2018-01-27] VITALS: Ht 152.4 cm; Wt 70.8 kg
[~2018-01-27 17:57] MED LIST changes: -ALBU2.5V13 NEB; -DIPH50VI5 IM; -FAMO20VI2 IV; -FURO-151 PO; -LATA2.5D2 OP; -METF-494 PO; -PETR113P TP; -VANC1VIA IV; -[UNRECOGNIZED DRUG - REMARK] IV
[2018-01-27 18:30] VITALS: BP 133/56
--- NOTE | 2018-01-27 19:45 | NUR ---
1829 Admitted this 88 y/o female from [facility] with a dx of s/p mechanical fall, pelvic pain, transported by [facility], transferred via gurney. Patient is alert, verbally responsive, Mosotho speaking, understand a little Montserratian, able to make needs known, not in any form of acute distress. She denies any pain or discomfort at this time. Routine admission care done. Orientation to staff, room and use of devices done with verbalized understanding. Assisted patient with her needs. Call light placed within reach. Reminded to use call light when in need of assistance with verbalized understanding. MRSA screening of nares done, home medications put in the system. Daughter Annita at bedside and gave patient's own medication Edarbi tablets, handed to pharmacist Cindy. Dr. Andre informed regarding admission and saw the patient. Paged Dr. Talha Poe regarding admission and medication reconciliation, awaiting call back. Endorsed accordingly to welder 2nd shift IMELDA Anderson for continuation of admission process and care.
[2018-01-27] MEDS ORDERED: AZIL40TA PO (19:58)
[2018-01-27] MEDS ORDERED: METF-494 PO (19:58)
[2018-01-27] MEDS ORDERED: LIDO30AD10 TD (19:58)
[2018-01-27] MEDS ORDERED: ALBU6.7H IH (19:58)
[2018-01-27] MEDS ORDERED: LEVO25TA9 PO (19:58)
[2018-01-27] MEDS ORDERED: BUDE10.2 IH (19:58)
[2018-01-27] MEDS ORDERED: NALO25TA PO (19:58)
[2018-01-27] MEDS ORDERED: CHOL10002 PO (19:58)
[2018-01-27] MEDS ORDERED: HYDR-548 PO (19:58)
[2018-01-27] MEDS ORDERED: ESOM40CA PO (19:58)
[2018-01-27] MEDS ORDERED: DOCU100C36 PO (19:58)
[2018-01-27] MEDS ORDERED: HYDR-3326 PO (19:58)
[2018-01-27 20:00] VITALS: BP 147/64
[2018-01-27] MEDS ORDERED: METF500T6 PO (20:10)
[2018-01-27] MEDS ORDERED: ALBUTEROL SULFATE 2.5 MG/ 0.5 ML NEBU NEB PRN (22:00)
[2018-01-27] MEDS: HYDROCODONE/APAP 10-325 MG TABLET PO PRN (23:01)
[2018-01-28 04:00] VITALS: BP 128/53
--- NOTE | 2018-01-28 05:05 | NUR ---
Received pt at the beginning of shift resting in bed. C/o pain on the pelvic area. Pain medication given per MD's order. MD seen pt last night. All pertinent assessments done. Edema and redness noted on bilateral lower legs. Pictures taken and placed in chart. Oriented pt to the unit and equipment. No acute distress noted. VSS. Safety measures maintained. Call light and personal belongings within reach. Will continue to monitor.
[2018-01-28] MEDS: LEVOTHYROXINE SODIUM 25 MCG TABLET PO SCH (06:31)
[2018-01-28] MEDS: HYDROCODONE/APAP 5-325MG TABLET PO PRN ×2 (06:32→13:15)
[2018-01-28 07:06] LABS: CARBON DIOXIDE 25 mmol/L (21-32); CHLORIDE 105 mmol/L (98-107); CHOLESTEROL 113 mg/dL (<200); GLUCOSE 82 mg/dL (74-106); HDL CHOLESTEROL 43 mg/dL (40-60); MAGNESIUM 1.5 mg/dL (1.8-2.4); PHOSPHOROUS 2.9 mg/dL (2.5-4.9); TRIGLYCERIDES 76 MG/DL (30-150); UREA NITROGEN, BLOOD 16 mg/dL (7-18)
[2018-01-28 07:13] LABS: BASOPHILS # (AUTO) 0.1 K/uL (0.0-8.0); BASOPHILS % (AUTO) 0.8 % (0.0-2.0); EOSINOPHILS # (AUTO) 0.4 K/uL (0.0-0.7); EOSINOPHILS % (AUTO) 5.6 % (0.0-7.0); HEMATOCRIT 30.2 % (31.2-41.9); HEMOGLOBIN 10.2 g/dL (10.9-14.3); LYMPHOCYTES # (AUTO) 1.7 K/uL (20.0-40.0); LYMPHOCYTES % (AUTO) 22.3 % (20.5-51.5); MEAN CORPUSCULAR HEMOGLOBIN 27.2 uug (24.7-32.8); MEAN CORPUSCULAR HGB CONC 34 g/dL (32.3-35.6); MEAN CORPUSCULAR VOLUME 80.5 fL (75.5-95.3); MONOCYTES % (AUTO) 12.4 % (0.0-11.0); NEUTROPHILS # (AUTO) 4.6 K/uL (1.8-8.9); NEUTROPHILS % (AUTO) 58.9 % (38.5-71.5); RED BLOOD CELL COUNT(AUTO) 3.75 MIL/uL (3.63-4.92); WHITE BLOOD COUNT (AUTO) 7.8 K/uL (3.8-11.8)
[2018-01-28 07:27] LABS: PLATELET COUNT (AUTO) 297 K/uL (179-408)
[2018-01-28] MEDS ORDERED: FLUTICASONE/SALMETEROL 250/50 INHALER INH SCH (07:30)
--- NOTE | 2018-01-28 08:00 | NUR ---
Patient awake, verbally responsive, not in any form of acute distress. She denies any pain or discomfort at this time. Safety measures maintained. Assisted to her needs. Call light placed within reach. Reminded to use call light for assistance with verbalized understanding.
[2018-01-28 08:26] VITALS: BP_SYST 104; BP_SYST 126; BP_DIAS 45; BP_DIAS 48
[2018-01-28] MEDS: METFORMIN HCL 500 MG TABLET PO SCH ×2 (08:57→17:36)
[2018-01-28] MEDS: DOCUSATE SODIUM 100 MG CAPSULE PO SCH ×2 (08:57→17:36)
[2018-01-28] MEDS: CINACALCET HCL 30 MG TABLET PO SCH (08:58)
[2018-01-28] MEDS: ALLOPURINOL 100 MG TABLET PO SCH (08:58)
[2018-01-28] MEDS: CHOLECALCIFEROL 1,000 UNIT TABLET PO SCH (08:58)
[2018-01-28] MEDS: LIDOCAINE 5% PATCH TD SCH (08:59)
[2018-01-28] MEDS ORDERED: Medication Not On Formulary EA (Naloxegol Oxalate (Movantik) 25 MG) PO SCH (09:00)
[2018-01-28] MEDS: FLUTICASONE/VILANTEROL 1 EACH BLST.W.DEV INH SCH (09:25)
[2018-01-28] MEDS: EDARBI 40 MG PO SCH (11:52)
[2018-01-28] MEDS: Z GUARD REMEDY PASTE 57 GM TUBE TOP PRN (11:53)
--- NOTE | 2018-01-28 12:43 | NUR ---
Dr. Ny made his rounds and notified him regarding result of magnesium 1.5 and ordered magnesium oxide 500mg Q 12 hours. Also MD ordered Protonix 40mg PO daily. Patient made aware.
[2018-01-28] MEDS: MAGNESIUM OXIDE 250 MG TABLET PO SCH ×2 (13:09→21:32)
[2018-01-28] MEDS: HYDROCODONE/APAP 10-325 MG TABLET PO PRN ×2 (14:15→21:31)
--- NOTE | 2018-01-28 18:00 | NUR ---
Followed up from daughter Annita who is at bedside regarding patient's own medication Micahbekathy and Movantik. Per daughter she will bring the medication tomorrow.
[2018-01-28 20:30] VITALS: BP 130/63
[2018-01-28] MEDS ORDERED: TRAVOPROST 0.004% OPHT DROP 2.5 ML BOTTLE EACHEYE SCH (21:00)
[2018-01-28] MEDS: ATORVASTATIN 10 MG TABLET PO SCH (21:30)
[2018-01-28] MEDS: MONTELUKAST SODIUM 10 MG TABLET PO SCH (21:30)
[2018-01-28] MEDS: LATANOPROST OPHT DROP 2.5 ML BOTTLE OP SCH (21:48)
[2018-01-29] MEDS: HYDROCODONE/APAP 10-325 MG TABLET PO PRN ×3 (04:34→17:54)
--- NOTE | 2018-01-29 05:23 | NUR ---
awake alert and oriented x3. fall precautions maintained. complained of right hip pain, norco 1 tab given as ordered. repositioned for comfort. turned from sides to sides. BLE swollen. elevated up on a pillow. incontinent of urine and BM. kept clean and dry. will monitor patient.
[2018-01-29] MEDS: LEVOTHYROXINE SODIUM 25 MCG TABLET PO SCH (06:30)
[2018-01-29] MEDS ORDERED: PANTOPRAZOLE SODIUM 40 MG TABLET.DR PO SCH (07:00)
--- NOTE | 2018-01-29 08:05 | NUR ---
Received patient awake, alert x4. With minimal pain over right hip. PRN [place] 5-325 given. Morning care done, unique-care done. Not in any form of distress. Up with physical therapy.
[2018-01-29] MEDS: METFORMIN HCL 500 MG TABLET PO SCH ×2 (08:59→17:54)
[2018-01-29] MEDS: CLOPIDOGREL 75 MG TABLET PO SCH (08:59)
[2018-01-29] MEDS: FLUTICASONE/VILANTEROL 1 EACH BLST.W.DEV INH SCH (08:59)
[2018-01-29] MEDS: DOCUSATE SODIUM 100 MG CAPSULE PO SCH ×2 (09:00→17:54)
[2018-01-29] MEDS: ALLOPURINOL 100 MG TABLET PO SCH (09:00)
[2018-01-29] MEDS: SPIRONOLACTONE 25 MG TABLET PO SCH (09:00)
[2018-01-29] MEDS: LIDOCAINE 5% PATCH TD SCH (09:01)
[2018-01-29] MEDS: CINACALCET HCL 30 MG TABLET PO SCH (09:01)
[2018-01-29] MEDS: MAGNESIUM OXIDE 250 MG TABLET PO SCH ×2 (09:01→20:34)
[2018-01-29] MEDS: CHOLECALCIFEROL 1,000 UNIT TABLET PO SCH (09:01)
[2018-01-29] MEDS: HYDROCODONE/APAP 5-325MG TABLET PO PRN (09:02)
[2018-01-29] MEDS: EDARBI 40 MG PO SCH (09:02)
[2018-01-29 10:45] VITALS: BP 142/51
--- NOTE | 2018-01-29 13:22 | NUR ---
Patient complained of pain over right hip rated as 10/10. PRN [place] given. Applied warm pack over area.
[2018-01-29 20:31] VITALS: BP 111/75
[2018-01-29] MEDS: ATORVASTATIN 10 MG TABLET PO SCH (20:34)
[2018-01-29] MEDS: MONTELUKAST SODIUM 10 MG TABLET PO SCH (20:34)
[2018-01-29] MEDS: LATANOPROST OPHT DROP 2.5 ML BOTTLE OP SCH (20:35)
[2018-01-30] MEDS: HYDROCODONE/APAP 10-325 MG TABLET PO PRN ×4 (00:42→20:42)
[2018-01-30] MEDS: HYDROCODONE/APAP 5-325MG TABLET PO PRN ×2 (01:43→22:02)
--- NOTE | 2018-01-30 05:14 | NUR ---
C/O RIGHT HIP PAIN, GIVEN NORCO X2. TURNED AND REPOSITIONED FOR COMFORT. SLEEPING AND SNORING AT THIS TIME.
[2018-01-30] MEDS: LEVOTHYROXINE SODIUM 25 MCG TABLET PO SCH (06:32)
[2018-01-30 06:39] VITALS: BP 128/76
[2018-01-30] MEDS: CINACALCET HCL 30 MG TABLET PO SCH (09:25)
[2018-01-30] MEDS: ALLOPURINOL 100 MG TABLET PO SCH (09:28)
[2018-01-30] MEDS: METFORMIN HCL 500 MG TABLET PO SCH ×2 (09:28→18:20)
[2018-01-30] MEDS: DOCUSATE SODIUM 100 MG CAPSULE PO SCH ×2 (09:28→18:20)
[2018-01-30] MEDS: LIDOCAINE 5% PATCH TD SCH (09:29)
[2018-01-30] MEDS: CHOLECALCIFEROL 1,000 UNIT TABLET PO SCH (09:29)
[2018-01-30] MEDS: EDARBI 40 MG PO SCH (09:29)
[2018-01-30] MEDS: MAGNESIUM OXIDE 250 MG TABLET PO SCH ×2 (09:29→20:43)
[2018-01-30] MEDS: FLUTICASONE/VILANTEROL 1 EACH BLST.W.DEV INH SCH (09:30)
--- NOTE | 2018-01-30 13:51 | NUR ---
Acid Plant Helper: Biopsychosocial Assessment SW met with patient at bedside to assess her needs and provide support. Patient is an 88-year-old female admitted to ARU due to decline in functional mobility, decrease in strength and reduced balance. Patient was admitted to the hospital after a fall at home with complaints of pelvic pain. Patient stated, "I couldn't stand on my leg." Mental Status: Patient appeared alert and oriented x4 during interview, however patient had difficulty answering some questions. Patient reported that "all the medication" has been affecting her memory. She presented with a depressed mood and congruent affect, stating that she is "not good." Patient became tearful and expressed that she misses her . Patient has been in ARU since January 27, 2018. There is no mental illness history reported. Patient reported that physical therapy is "good" but that she "wasn't able to to it." Support System: Patient is and lives at home with her . Patient reported that her has visited her here in the hospital. When SW attempted to ask further questions about patient's support, patient reported that she was having difficulty with her memory. Goals: Patient reported that her goal is for her leg to get better. Interventions: SW engaged in active listening. SW provided emotional support and counseling. SW will provide linkage to case management. SW will encourage patient to comply with ARU goals.
[2018-01-30] MEDS: MOVANTIK 25 MG PO SCH (18:45)
[2018-01-30] MEDS: ESOMEPRAZOLE 40 MG PO SCH (18:45)
[2018-01-30] MEDS: MIRABEGRON 25 MG PO SCH (18:45)
[2018-01-30] MEDS: MONTELUKAST SODIUM 10 MG TABLET PO SCH (20:42)
[2018-01-30] MEDS: ATORVASTATIN 10 MG TABLET PO SCH (20:43)
[2018-01-30] MEDS: LATANOPROST OPHT DROP 2.5 ML BOTTLE OP SCH (20:43)
[2018-01-30 20:44] VITALS: BP 150/63
--- NOTE | 2018-01-30 20:45 | NUR ---
Received pt sleeping in bed. Aroused easily by name. AAO x4. Vincentian speaking, able to make needs known. No acute distress noted. C/o pain 10/10 on the right hip and leg. Given [place]. Diaper changed. Turned and repositioned for comfort and to prevent skin breakdown. Will continue to implement t/o the night. Safety measures maintained. Call light and personal belongings within reach. Will continue to monitor.
[2018-01-31 05:29] VITALS: BP 139/85
[2018-01-31 05:31] VITALS: BP 146/60
[2018-01-31] MEDS: ESOMEPRAZOLE 40 MG PO SCH (06:42)
[2018-01-31] MEDS: LEVOTHYROXINE SODIUM 25 MCG TABLET PO SCH (06:43)
[2018-01-31 08:00] VITALS: BP 149/56
--- NOTE | 2018-01-31 08:03 | NUR ---
Received patient alert and orientedx3-4. Continue on pain management with good effect. not in distress. Continue monitoring for redness in legs warm to touch. turning and positioning every 2 hours.will continue monitor
[2018-01-31] MEDS: METFORMIN HCL 500 MG TABLET PO SCH ×2 (08:37→17:16)
[2018-01-31] MEDS: CLOPIDOGREL 75 MG TABLET PO SCH (08:37)
[2018-01-31] MEDS: CINACALCET HCL 30 MG TABLET PO SCH (08:37)
[2018-01-31] MEDS: SPIRONOLACTONE 25 MG TABLET PO SCH (08:37)
[2018-01-31] MEDS: MOVANTIK 25 MG PO SCH (08:38)
[2018-01-31] MEDS: DOCUSATE SODIUM 100 MG CAPSULE PO SCH ×2 (08:38→17:16)
[2018-01-31] MEDS: MIRABEGRON 25 MG PO SCH (08:38)
[2018-01-31] MEDS: LIDOCAINE 5% PATCH TD SCH (08:38)
[2018-01-31] MEDS: MAGNESIUM OXIDE 250 MG TABLET PO SCH ×2 (08:38→20:54)
[2018-01-31] MEDS: EDARBI 40 MG PO SCH (08:38)
[2018-01-31] MEDS: ALLOPURINOL 100 MG TABLET PO SCH (08:38)
[2018-01-31] MEDS: CHOLECALCIFEROL 1,000 UNIT TABLET PO SCH (08:38)
[2018-01-31] MEDS: FLUTICASONE/VILANTEROL 1 EACH BLST.W.DEV INH SCH (08:43)
[2018-01-31] MEDS: HYDROCODONE/APAP 10-325 MG TABLET PO PRN ×3 (09:05→20:54)
[2018-01-31] MEDS ORDERED: BISACODYL 10 MG SUPP.RECT RC ONE (12:30)
--- NOTE | 2018-01-31 12:56 | NUR ---
Patient had large BM x1. . ordered dulcolax supp as needed.
[2018-01-31] MEDS ORDERED: BISACODYL 10 MG SUPP.RECT RC PRN (13:00)
[2018-01-31] MEDS: HYDROCODONE/APAP 5-325MG TABLET PO PRN (15:44)
[2018-01-31 16:18] VITALS: BP 151/52
[2018-01-31] MEDS ORDERED: FLEET ENEMA 133 ML BOTTLE RC PRN (18:00)
[2018-01-31 20:15] VITALS: BP 154/57
[2018-01-31] MEDS: MONTELUKAST SODIUM 10 MG TABLET PO SCH (20:52)
[2018-01-31] MEDS: GABAPENTIN 100 MG CAPSULE PO SCH (20:52)
[2018-01-31] MEDS: LATANOPROST OPHT DROP 2.5 ML BOTTLE OP SCH (20:52)
[2018-01-31] MEDS: ATORVASTATIN 10 MG TABLET PO SCH (20:52)
--- NOTE | 2018-02-01 04:48 | NUR ---
slept well needs attended. complained of left hip pain, norco given. relief noted. repositioned for comfort.turned to sides. will monitor patient. siderails up for safety. kept comfortable. incontinent of urine x2. kept clean and dry.
[2018-02-01] MEDS: HYDROCODONE/APAP 10-325 MG TABLET PO PRN (05:01)
[2018-02-01] MEDS: LEVOTHYROXINE SODIUM 25 MCG TABLET PO SCH (06:32)
[2018-02-01] MEDS: ESOMEPRAZOLE 40 MG PO SCH (06:34)
--- NOTE | 2018-02-01 07:45 | NUR ---
Patient awake, in bed, verbally responsive, not in any form of acute distress. She denies any pain or discomfort at this time. Call light placed within reach. Assisted with her needs.
[2018-02-01 08:11] VITALS: BP 129/54
[2018-02-01] MEDS: METFORMIN HCL 500 MG TABLET PO SCH ×2 (08:32→18:11)
[2018-02-01] MEDS: MAGNESIUM OXIDE 250 MG TABLET PO SCH ×2 (08:33→20:44)
[2018-02-01] MEDS: FLUTICASONE/VILANTEROL 1 EACH BLST.W.DEV INH SCH (08:33)
[2018-02-01] MEDS: DOCUSATE SODIUM 100 MG CAPSULE PO SCH ×2 (08:33→16:20)
[2018-02-01] MEDS: EDARBI 40 MG PO SCH (08:34)
[2018-02-01] MEDS: MIRABEGRON 25 MG PO SCH (08:35)
[2018-02-01] MEDS: MOVANTIK 25 MG PO SCH (08:35)
[2018-02-01] MEDS: methylPREDNISolone 4 MG TABLET PO SCH (08:35)
[2018-02-01] MEDS: LIDOCAINE 5% PATCH TD SCH (08:36)
[2018-02-01] MEDS: ALLOPURINOL 100 MG TABLET PO SCH (08:36)
[2018-02-01] MEDS: CINACALCET HCL 30 MG TABLET PO SCH (08:36)
[2018-02-01] MEDS: CHOLECALCIFEROL 1,000 UNIT TABLET PO SCH (08:36)
[2018-02-01] MEDS: HYDROCODONE/APAP 5-325MG TABLET PO PRN ×4 (09:34→20:45)
--- NOTE | 2018-02-01 13:46 | NUR ---
Informed Dr. Ny regarding patient's complain of itching and rash noted on her back. MD ordered Benadryl 25mg PO Q 6 hrs PRN and Lotrimin cream to affected area Q 12 hr for 7 days. Patient and daughter Annita at bedside made aware.
--- NOTE | 2018-02-01 13:50 | NUR ---
Offered Benadryl for itching as ordered by MD but patient refused to take at this time,
[2018-02-01] MEDS: GABAPENTIN 100 MG CAPSULE PO SCH ×2 (14:08→20:44)
[2018-02-01 15:25] VITALS: BP 152/67
[2018-02-01 19:30] VITALS: BP 118/64
[2018-02-01] MEDS: ATORVASTATIN 10 MG TABLET PO SCH (20:44)
[2018-02-01] MEDS: MONTELUKAST SODIUM 10 MG TABLET PO SCH (20:44)
[2018-02-01] MEDS: diphenhydrAMINE 25 MG CAP PO PRN (20:45)
[2018-02-01] MEDS: CLOTRIMAZOLE 1% CREAM 30 GM TUBE TOP SCH (20:45)
[2018-02-01] MEDS: LATANOPROST OPHT DROP 2.5 ML BOTTLE OP SCH (20:46)
--- NOTE | 2018-02-02 03:49 | NUR ---
resting in bed at beginning of the shift. in good spirits. no acute distress noted. needs attended. tolerated po meds well. complained of generalized pain especially the hip, norco 1 tab po given. will monitor for effectivity. also patient complained of itching all over particularly the back. Benadryl 25 mg given as ordered. Rashes noted on the back area, lotrimin given. will monitor patient. slept well @ long intervals. incontinent of urine x2. kept clean and dry. repositioned for comfort. no further complaints noted.
[2018-02-02] MEDS: ESOMEPRAZOLE 40 MG PO SCH (06:37)
[2018-02-02] MEDS: LEVOTHYROXINE SODIUM 25 MCG TABLET PO SCH (06:37)
[2018-02-02 06:59] VITALS: BP 163/60
[2018-02-02 08:04] VITALS: BP 145/60
[2018-02-02] MEDS: FLUTICASONE/VILANTEROL 1 EACH BLST.W.DEV INH SCH (09:26)
[2018-02-02] MEDS: CHOLECALCIFEROL 1,000 UNIT TABLET PO SCH (09:27)
[2018-02-02] MEDS: MIRABEGRON 25 MG PO SCH (09:27)
[2018-02-02] MEDS: CLOPIDOGREL 75 MG TABLET PO SCH (09:27)
[2018-02-02] MEDS: METFORMIN HCL 500 MG TABLET PO SCH ×2 (09:27→17:05)
[2018-02-02] MEDS: DOCUSATE SODIUM 100 MG CAPSULE PO SCH ×2 (09:27→17:05)
[2018-02-02] MEDS: SPIRONOLACTONE 25 MG TABLET PO SCH (09:27)
[2018-02-02] MEDS: ALLOPURINOL 100 MG TABLET PO SCH (09:27)
[2018-02-02] MEDS: HYDROCODONE/APAP 10-325 MG TABLET PO PRN ×2 (09:27→17:05)
[2018-02-02] MEDS: CINACALCET HCL 30 MG TABLET PO SCH (09:27)
[2018-02-02] MEDS: LIDOCAINE 5% PATCH TD SCH (09:28)
[2018-02-02] MEDS: CLOTRIMAZOLE 1% CREAM 30 GM TUBE TOP SCH ×2 (09:28→20:54)
[2018-02-02] MEDS: MOVANTIK 25 MG PO SCH (09:28)
[2018-02-02] MEDS: MAGNESIUM OXIDE 250 MG TABLET PO SCH ×2 (09:28→20:49)
[2018-02-02] MEDS: EDARBI 40 MG PO SCH (09:28)
[2018-02-02] MEDS: GABAPENTIN 100 MG CAPSULE PO SCH ×2 (13:18→20:49)
[2018-02-02] MEDS: diphenhydrAMINE 25 MG CAP PO PRN (13:18)
[2018-02-02 16:34] VITALS: BP 148/64
--- NOTE | 2018-02-02 19:55 | NUR ---
Pt sleeping comfortably in bed. Arousable to name. AAO x3. [place] Citizen speaking, able to make needs known. No acute distress noted. Turned and repositioned. Safety measures maintained. Call light and personal belongings within reach. Will continue to monitor.
[2018-02-02 20:40] VITALS: BP 128/49
[2018-02-02] MEDS: MONTELUKAST SODIUM 10 MG TABLET PO SCH (20:49)
[2018-02-02] MEDS: ATORVASTATIN 10 MG TABLET PO SCH (20:49)
[2018-02-02] MEDS: LATANOPROST OPHT DROP 2.5 ML BOTTLE OP SCH (20:49)
[2018-02-02] MEDS: HYDROCODONE/APAP 5-325MG TABLET PO PRN (22:55)
[2018-02-03] MEDS: HYDROCODONE/APAP 10-325 MG TABLET PO PRN ×2 (02:23→20:41)
[2018-02-03] MEDS: ESOMEPRAZOLE 40 MG PO SCH (06:33)
[2018-02-03] MEDS: LEVOTHYROXINE SODIUM 25 MCG TABLET PO SCH (06:33)
[2018-02-03 06:38] VITALS: BP 128/49
[2018-02-03 08:00] VITALS: BP 148/66
[2018-02-03] MEDS: DOCUSATE SODIUM 100 MG CAPSULE PO SCH ×2 (08:58→17:24)
[2018-02-03] MEDS: METFORMIN HCL 500 MG TABLET PO SCH ×2 (08:58→17:24)
[2018-02-03] MEDS: CINACALCET HCL 30 MG TABLET PO SCH (08:58)
[2018-02-03] MEDS: CHOLECALCIFEROL 1,000 UNIT TABLET PO SCH (08:59)
[2018-02-03] MEDS: ALLOPURINOL 100 MG TABLET PO SCH (08:59)
[2018-02-03] MEDS: LIDOCAINE 5% PATCH TD SCH (09:01)
[2018-02-03] MEDS: FLUTICASONE/VILANTEROL 1 EACH BLST.W.DEV INH SCH (09:02)
[2018-02-03] MEDS: MIRABEGRON 25 MG PO SCH (09:03)
[2018-02-03] MEDS: EDARBI 40 MG PO SCH (09:03)
[2018-02-03] MEDS: MAGNESIUM OXIDE 250 MG TABLET PO SCH ×2 (09:03→20:42)
[2018-02-03] MEDS: MOVANTIK 25 MG PO SCH (09:03)
[2018-02-03] MEDS: methylPREDNISolone 4 MG TABLET PO SCH (09:04)
[2018-02-03] MEDS: CLOTRIMAZOLE 1% CREAM 30 GM TUBE TOP SCH ×2 (09:19→20:41)
[2018-02-03] MEDS: HYDROCODONE/APAP 5-325MG TABLET PO PRN ×2 (10:00→15:50)
[2018-02-03] MEDS: GABAPENTIN 100 MG CAPSULE PO SCH ×2 (14:46→20:42)
--- NOTE | 2018-02-03 15:45 | NUR ---
I agree Addendum: 02/03/18 at 1546 by JEFFERY LIMA OT Amended: Links added.
--- NOTE | 2018-02-03 15:46 | NUR ---
I agree Addendum: 02/03/18 at 1546 by JEFFERY LMIA OT Amended: Links added.
--- NOTE | 2018-02-03 15:47 | NUR ---
I agree Addendum: 02/03/18 at 1547 by JEFFERY LIMA OT Amended: Links added.
[2018-02-03 19:30] VITALS: BP 107/52
[2018-02-03] MEDS: LATANOPROST OPHT DROP 2.5 ML BOTTLE OP SCH (20:40)
[2018-02-03] MEDS: MONTELUKAST SODIUM 10 MG TABLET PO SCH (20:41)
[2018-02-03] MEDS: ATORVASTATIN 10 MG TABLET PO SCH (20:41)
--- NOTE | 2018-02-03 22:12 | NUR ---
Received pt sleeping in bed. Arousable to name. [place] speaking. Able to make needs known. No acute distress noted. C/o pain on the right hip. Meds given as ordered. Turned and repositioned. Safety measures maintained. Call light and personal belongings within reach. Will continue to monitor.
[2018-02-04] MEDS: HYDROCODONE/APAP 5-325MG TABLET PO PRN ×3 (01:13→20:35)
[2018-02-04] MEDS: diphenhydrAMINE 25 MG CAP PO PRN ×2 (01:20→07:55)
[2018-02-04] MEDS: LEVOTHYROXINE SODIUM 25 MCG TABLET PO SCH (06:31)
[2018-02-04] MEDS: ESOMEPRAZOLE 40 MG PO SCH (06:31)
[2018-02-04 06:57] VITALS: BP 129/60
[2018-02-04] MEDS: HYDROCODONE/APAP 10-325 MG TABLET PO PRN ×2 (07:54→18:34)
[2018-02-04] MEDS: SPIRONOLACTONE 25 MG TABLET PO SCH (07:55)
[2018-02-04] MEDS: DOCUSATE SODIUM 100 MG CAPSULE PO SCH ×2 (07:55→16:35)
[2018-02-04] MEDS: ALLOPURINOL 100 MG TABLET PO SCH (07:55)
[2018-02-04] MEDS: METFORMIN HCL 500 MG TABLET PO SCH ×2 (07:55→16:35)
[2018-02-04] MEDS: CINACALCET HCL 30 MG TABLET PO SCH (07:55)
[2018-02-04] MEDS: CHOLECALCIFEROL 1,000 UNIT TABLET PO SCH (07:55)
[2018-02-04] MEDS: CLOPIDOGREL 75 MG TABLET PO SCH (07:55)
[2018-02-04] MEDS: MAGNESIUM OXIDE 250 MG TABLET PO SCH ×2 (07:56→20:33)
[2018-02-04] MEDS: EDARBI 40 MG PO SCH (07:56)
[2018-02-04] MEDS: MOVANTIK 25 MG PO SCH (07:56)
[2018-02-04] MEDS: MIRABEGRON 25 MG PO SCH (07:57)
[2018-02-04] MEDS: LIDOCAINE 5% PATCH TD SCH (07:57)
[2018-02-04] MEDS: CLOTRIMAZOLE 1% CREAM 30 GM TUBE TOP SCH ×2 (07:59→20:34)
[2018-02-04] MEDS: FLUTICASONE/VILANTEROL 1 EACH BLST.W.DEV INH SCH (08:21)
[2018-02-04 08:30] VITALS: BP 157/49
--- NOTE | 2018-02-04 09:24 | NUR ---
Received patient awake, alert and oriented x3. not in distress. last BM 01/31/18. refused enema this morning. encourage fluid intake. prune juice give. Continue on pain management with good effect. will continue monitor
[2018-02-04] MEDS: GABAPENTIN 100 MG CAPSULE PO SCH (13:33)
[2018-02-04] MEDS ORDERED: hydrOXYzine HCL 10 MG TABLET PO SCH (14:00)
[2018-02-04] MEDS ORDERED: hydrOXYzine HCL 50 MG TABLET PO SCH (14:15)
[2018-02-04] MEDS: ATORVASTATIN 10 MG TABLET PO SCH (20:33)
[2018-02-04] MEDS: MONTELUKAST SODIUM 10 MG TABLET PO SCH (20:33)
[2018-02-04] MEDS: LATANOPROST OPHT DROP 2.5 ML BOTTLE OP SCH (20:34)
[2018-02-04 21:24] VITALS: BP 145/66
[2018-02-05 05:19] VITALS: BP 136/62
--- NOTE | 2018-02-05 05:38 | NUR ---
resting in bed. aaox3 needs attended. complained of generalized pain. [place] 1 tab given for pain. repositioned for comfort.turned to sides. kept comfortable. VSS. voided in bedpan, gets incontinent at times. kept clean and dry.UA C&S collected and sent to lab. no acute distress noted. will monitor. slept well throughout the night.
[2018-02-05] MEDS: ESOMEPRAZOLE 40 MG PO SCH (06:30)
[2018-02-05] MEDS: LEVOTHYROXINE SODIUM 25 MCG TABLET PO SCH (06:30)
[2018-02-05 08:00] VITALS: BP 125/80
[2018-02-05] MEDS: CINACALCET HCL 30 MG TABLET PO SCH (08:41)
[2018-02-05] MEDS: METFORMIN HCL 500 MG TABLET PO SCH ×2 (08:41→16:22)
[2018-02-05] MEDS: ALLOPURINOL 100 MG TABLET PO SCH (08:42)
[2018-02-05] MEDS: DOCUSATE SODIUM 100 MG CAPSULE PO SCH ×2 (08:42→16:20)
[2018-02-05] MEDS: CHOLECALCIFEROL 1,000 UNIT TABLET PO SCH (08:42)
[2018-02-05] MEDS: MIRABEGRON 25 MG PO SCH (08:43)
[2018-02-05] MEDS: MOVANTIK 25 MG PO SCH (08:43)
[2018-02-05] MEDS: FLUTICASONE/VILANTEROL 1 EACH BLST.W.DEV INH SCH (08:43)
[2018-02-05] MEDS: EDARBI 40 MG PO SCH (08:43)
[2018-02-05] MEDS: methylPREDNISolone 4 MG TABLET PO SCH (08:43)
[2018-02-05] MEDS: MAGNESIUM OXIDE 250 MG TABLET PO SCH ×2 (08:44→20:34)
[2018-02-05] MEDS: LIDOCAINE 5% PATCH TD SCH (08:44)
--- NOTE | 2018-02-05 08:55 | NUR ---
I agree Addendum: 02/05/18 at 0856 by JEFFERY LIMA OT Amended: Links added.
--- NOTE | 2018-02-05 08:57 | NUR ---
I agree Addendum: 02/05/18 at 0857 by JEFFERY LIMA OT Amended: Links added.
[2018-02-05] MEDS: CLOTRIMAZOLE 1% CREAM 30 GM TUBE TOP SCH ×2 (09:16→20:35)
[2018-02-05] MEDS ORDERED: TRIAMCINOLONE TOP PRN (09:30)
[2018-02-05] MEDS ORDERED: PROVENTIL MDI INH PRN (09:30)
[2018-02-05] MEDS: SYMBICORT INH SCH ×2 (09:30→20:38)
[2018-02-05] MEDS ORDERED: NYSTATIN TOP PRN (09:30)
[2018-02-05] MEDS: MDI INH SCH ×2 (09:30→20:38)
--- NOTE | 2018-02-05 10:22 | NUR ---
Received patient sleeping in bed. Alert and orientedx3. not in distress. Continue on pain management with fair effect. no complaint of pain/discomfort. large brown color LBMx2 noted. will continue monitor
[2018-02-05] MEDS ORDERED: NYSTATIN TOP SCH (10:30)
[2018-02-05] MEDS ORDERED: TRIAMCINOLONE TOP SCH (10:30)
[2018-02-05] MEDS: HYDROCODONE/APAP 10-325 MG TABLET PO PRN ×2 (11:37→17:18)
[2018-02-05] MEDS: HYDROCODONE/APAP 5-325MG TABLET PO PRN (18:24)
[2018-02-05 19:43] VITALS: BP 144/66
[2018-02-05] MEDS: MONTELUKAST SODIUM 10 MG TABLET PO SCH (20:33)
[2018-02-05] MEDS: ATORVASTATIN 10 MG TABLET PO SCH (20:33)
[2018-02-05] MEDS: LATANOPROST OPHT DROP 2.5 ML BOTTLE OP SCH (20:34)
--- NOTE | 2018-02-06 04:46 | NUR ---
awake alert and oriented. daughter in to come see patient. vital signs taken and recorded. needs attended. complained of severe sore and [place] repositioned for comfort.denies any pain nor any discomfort. compliant with meds. kept comfortable.
[2018-02-06 05:53] VITALS: BP 127/61
[2018-02-06] MEDS: LEVOTHYROXINE SODIUM 25 MCG TABLET PO SCH (06:31)
[2018-02-06] MEDS: ESOMEPRAZOLE 40 MG PO SCH (06:32)
--- NOTE | 2018-02-06 07:10 | NUR ---
Nurse notes: patient received asleep, on bed with head of bed elevated with no SOB or distress, easily aroused. call light within reach. All needs were attended and anticipated. Reminded the patient to use call light whenever assistance is needed. Instructed regarding hourly rounding and safety precautions to prevent falls. Will continue to monitor.
[2018-02-06 08:00] VITALS: BP_SYST 125; BP_SYST 142; BP_DIAS 60; BP_DIAS 62
[2018-02-06] MEDS: DOCUSATE SODIUM 100 MG CAPSULE PO SCH ×2 (08:13→17:19)
[2018-02-06] MEDS: CLOPIDOGREL 75 MG TABLET PO SCH (08:13)
[2018-02-06] MEDS: SPIRONOLACTONE 25 MG TABLET PO SCH (08:13)
[2018-02-06] MEDS: ALLOPURINOL 100 MG TABLET PO SCH (08:13)
[2018-02-06] MEDS: CHOLECALCIFEROL 1,000 UNIT TABLET PO SCH (08:13)
[2018-02-06] MEDS: CINACALCET HCL 30 MG TABLET PO SCH (08:13)
[2018-02-06] MEDS: METFORMIN HCL 500 MG TABLET PO SCH ×2 (08:13→17:20)
[2018-02-06] MEDS: CLOTRIMAZOLE 1% CREAM 30 GM TUBE TOP SCH ×2 (08:14→20:33)
[2018-02-06] MEDS: LIDOCAINE 5% PATCH TD SCH (08:14)
[2018-02-06] MEDS: MIRABEGRON 25 MG PO SCH (08:18)
[2018-02-06] MEDS: MAGNESIUM OXIDE 250 MG TABLET PO SCH ×2 (08:18→20:32)
[2018-02-06] MEDS: MOVANTIK 25 MG PO SCH (08:18)
[2018-02-06] MEDS: EDARBI 40 MG PO SCH (08:18)
[2018-02-06] MEDS: SYMBICORT INH SCH ×2 (08:19→20:30)
[2018-02-06] MEDS: MDI INH SCH ×2 (08:19→20:30)
[2018-02-06] MEDS: HYDROCODONE/APAP 10-325 MG TABLET PO PRN ×2 (08:51→15:25)
--- NOTE | 2018-02-06 08:52 | NUR ---
I agree Addendum: 02/06/18 at 0852 by JEFFERY LIMA OT Amended: Links added.
--- NOTE | 2018-02-06 08:53 | NUR ---
I agree Addendum: 02/06/18 at 0853 by JEFFERY LIMA OT Amended: Links added.
[2018-02-06] MEDS: PHENAZOPYRIDINE HCL 100 MG TABLET PO SCH ×2 (14:10→22:02)
--- NOTE | 2018-02-06 18:23 | NUR ---
End of shift report: patient alert and oriented, able to make needs known remained stable throughout the shift with no acute changes, no changes in LOC or mentation. No SOB or distress. Assessed and reassessed for pain. medicated with pain medication PRN for pain as ordered. Turned and repositioned, skin checks done. Patient requested to have her Lidocaine patch removed. Hourly rounding done, call light within teach at all times, answered call light promptly. safety precautions observed. bed alarm, bed brakes on, bilateral half side rails up for safety. Will endorse accordingly to incoming shift for continuity of care.
[2018-02-06 20:07] VITALS: BP 124/65
[2018-02-06] MEDS: ATORVASTATIN 10 MG TABLET PO SCH (20:32)
[2018-02-06] MEDS: LATANOPROST OPHT DROP 2.5 ML BOTTLE OP SCH (20:32)
[2018-02-06] MEDS: MONTELUKAST SODIUM 10 MG TABLET PO SCH (20:32)
[2018-02-06 21:17] LABS: *BILIRUBIN,URIN NEGATIVE (NEGATIVE); *BLOOD, URINE 2+ (NEGATIVE); *CLARITY,URINE CLOUDY (CLEAR); *COLOR,URINE Orange (YELLOW); *KETONES,URINE NEGATIVE (NEGATIVE); *PROTEIN,URINE 1+ (NEGATIVE); LEUKOCYTE ESTERASE ,URINE 3+ (NEGATIVE); NITRITE, URINE POSITIVE (NEGATIVE); UGLUCOSE TRACE (NEGATIVE)
[2018-02-06 21:21] LABS: BACTERIA,URINE MANY /HPF (NONE SEEN); SQUAMOUS EPITHELIAL CELL,UR FEW /HPF (NONE SEEN); WBC,URINE TNTC /HPF (0-3)
[2018-02-07] MEDS: HYDROCODONE/APAP 10-325 MG TABLET PO PRN ×3 (00:33→23:41)
--- NOTE | 2018-02-07 01:58 | NUR ---
Patient received on bed with the head of the bed elevated. Alert and oriented x3. No acute distress or SOB. Meds given as ordered. Patient complained of pain, pain medication given as ordered. Pain reassessment was done. Call light within reach and call light answered promptly. Hourly rounding and safety percussion done. Continue to monitor.
[2018-02-07 05:49] VITALS: BP 131/62
[2018-02-07] MEDS: ESOMEPRAZOLE 40 MG PO SCH (06:29)
[2018-02-07] MEDS: LEVOTHYROXINE SODIUM 25 MCG TABLET PO SCH (06:30)
[2018-02-07] MEDS: HYDROCODONE/APAP 5-325MG TABLET PO PRN ×2 (06:30→16:40)
[2018-02-07] MEDS: PHENAZOPYRIDINE HCL 100 MG TABLET PO SCH ×3 (06:31→21:03)
--- NOTE | 2018-02-07 07:08 | NUR ---
patient alert and oriented x3. No acute distress, no SOB. No change in LOC or mentation. Remained stable throughout the shift. Med given as ordered. Pain assessed and reassessed after pain medication. Call light within reach. Bed alarm and brakes on for safety precaution. Will endorse accordingly to incoming shift for continuity of care.
[2018-02-07 08:00] VITALS: BP 131/56
[2018-02-07] MEDS: DOCUSATE SODIUM 100 MG CAPSULE PO SCH ×2 (08:33→16:40)
[2018-02-07] MEDS: METFORMIN HCL 500 MG TABLET PO SCH ×2 (08:33→17:08)
[2018-02-07] MEDS: ALLOPURINOL 100 MG TABLET PO SCH (08:33)
[2018-02-07] MEDS: CHOLECALCIFEROL 1,000 UNIT TABLET PO SCH (08:33)
[2018-02-07] MEDS: MAGNESIUM OXIDE 250 MG TABLET PO SCH ×2 (08:34→21:11)
[2018-02-07] MEDS: methylPREDNISolone 4 MG TABLET PO SCH (08:34)
[2018-02-07] MEDS: MOVANTIK 25 MG PO SCH (08:37)
[2018-02-07] MEDS: EDARBI 40 MG PO SCH (08:37)
[2018-02-07] MEDS: MIRABEGRON 25 MG PO SCH (08:37)
[2018-02-07] MEDS: CINACALCET HCL 30 MG TABLET PO SCH (08:39)
[2018-02-07] MEDS: LIDOCAINE 5% PATCH TD SCH ×2 (08:40→09:00)
[2018-02-07] MEDS: MDI INH SCH ×2 (08:52→21:10)
[2018-02-07] MEDS: SYMBICORT INH SCH ×2 (08:52→21:10)
[2018-02-07] MEDS: CLOTRIMAZOLE 1% CREAM 30 GM TUBE TOP SCH ×2 (08:56→21:04)
--- NOTE | 2018-02-07 09:37 | NUR ---
INTERDISCIPLINARY TEAM CONFERENCE
[2018-02-07] MEDS ORDERED: LEVOFLOXACIN 500 MG TABLET PO SCH (13:45)
[2018-02-07] MEDS ORDERED: LEVOFLOXACIN 500 MG TABLET PO ONE (13:46)
--- NOTE | 2018-02-07 15:22 | NUR ---
I agree Addendum: 02/07/18 at 1522 by JEFFERY LIMA OT Amended: Links added.
--- NOTE | 2018-02-07 15:23 | NUR ---
I agree Addendum: 02/07/18 at 1523 by JEFFERY LIMA OT Amended: Links added.
[2018-02-07 16:00] VITALS: BP 96/63
--- NOTE | 2018-02-07 18:27 | NUR ---
PATIENT IN BED RESTING, NO ACUTE DISTRESS NOTED. STARTED ON LEVAQUIN 250MG X 7 DAYS FOR UTI, NO ADR NOTED. COMPLAINS OF LEFT HIP PAIN 10/10, NORCO 10/325MG GIVEN AT 1408, AFTER 2HRS PATIENT COMPLAINED THAT IT DID NOT HELP, ADMINISTERED NORCO 5/325MG AT 1640, AND REPOSITIONED TO HELP ALLEVIATE PAIN. ALL NEEDS ATTENDED AND ANTICIPATED. REPOSITIONED Q2 TO PREVENT SKIN BREAKDOWN AND HELP WITH PAIN. KEPT CLEAN AND COMFORTABLE THROUGHOUT SHIFT. WILL CONTINUE TO MONITOR CLOSELY
[2018-02-07 19:30] VITALS: BP 117/57
[2018-02-07] MEDS: LATANOPROST OPHT DROP 2.5 ML BOTTLE OP SCH (21:03)
[2018-02-07] MEDS: ATORVASTATIN 10 MG TABLET PO SCH (21:03)
[2018-02-07] MEDS: MONTELUKAST SODIUM 10 MG TABLET PO SCH (21:03)
--- NOTE | 2018-02-07 23:55 | NUR ---
Patient received on bed with the head of the bed elevated. Awake , alert and oriented x3. No acute distress or SOB. Meds given as ordered. Patient complained of pain, pain medication ([place] 10-325) given as ordered. Pain reassessment was done. Call light and personal belonging within reach and call light answered promptly. patient repositioned to prevent skin damage. Hourly rounding and safety percussion done. Continue to monitor.
[2018-02-08] MEDS: LEVOTHYROXINE SODIUM 25 MCG TABLET PO SCH (06:30)
[2018-02-08] MEDS: PHENAZOPYRIDINE HCL 100 MG TABLET PO SCH (06:30)
[2018-02-08] MEDS: ESOMEPRAZOLE 40 MG PO SCH (06:31)
[2018-02-08 06:41] VITALS: BP 138/60
--- NOTE | 2018-02-08 06:46 | NUR ---
The end of shift report Patient awake, alert and oriented x3. No acute distress, no SOB. No change in LOC or mentation. Remained stable throughout the shift. Med given as ordered. Pain assessed and reassessed after pain medication. Call light and personal belongings within reach. Bed alarm and brakes on for safety precaution. Will endorse accordingly to incoming shift for continuity of care.
[2018-02-08 08:00] VITALS: BP 132/62
[2018-02-08] MEDS: METFORMIN HCL 500 MG TABLET PO SCH ×2 (08:32→17:04)
[2018-02-08] MEDS: CHOLECALCIFEROL 1,000 UNIT TABLET PO SCH (08:33)
[2018-02-08] MEDS: ALLOPURINOL 100 MG TABLET PO SCH (08:33)
[2018-02-08] MEDS: CINACALCET HCL 30 MG TABLET PO SCH (08:34)
[2018-02-08] MEDS: CLOPIDOGREL 75 MG TABLET PO SCH (08:34)
[2018-02-08] MEDS: DOCUSATE SODIUM 100 MG CAPSULE PO SCH ×2 (08:34→17:04)
[2018-02-08] MEDS: EDARBI 40 MG PO SCH (08:34)
[2018-02-08] MEDS: MOVANTIK 25 MG PO SCH (08:35)
[2018-02-08] MEDS: MIRABEGRON 25 MG PO SCH (08:35)
[2018-02-08] MEDS: MAGNESIUM OXIDE 250 MG TABLET PO SCH ×2 (08:35→20:50)
[2018-02-08] MEDS: SPIRONOLACTONE 25 MG TABLET PO SCH (08:36)
[2018-02-08] MEDS: LIDOCAINE 5% PATCH TD SCH (08:37)
[2018-02-08] MEDS: diphenhydrAMINE 25 MG CAP PO PRN ×3 (08:37→20:50)
[2018-02-08] MEDS: CLOTRIMAZOLE 1% CREAM 30 GM TUBE TOP SCH (08:38)
[2018-02-08] MEDS: SYMBICORT INH SCH ×2 (08:39→20:49)
[2018-02-08] MEDS: MDI INH SCH ×2 (08:39→20:49)
[2018-02-08] MEDS: HYDROCODONE/APAP 10-325 MG TABLET PO PRN ×2 (12:18→20:51)
[2018-02-08] MEDS: LEVOFLOXACIN 250 MG TABLET PO SCH (12:18)
[2018-02-08 16:38] VITALS: BP 137/59
--- NOTE | 2018-02-08 18:13 | NUR ---
PATIENT HAS BEEN COOPERATIVE WITH CARE, SEVERE NOTED ON RIGHT HIP AND LEG. PATIENT IS NOT EATING HOSPITAL MEALS AND WOULD BENEFIT FROM MENU CHOICES TO SUPPORT PATIENT'S MEAL PREFERENCES. CURRENTLY PATIENT IS IN BED, VERY LITTLE MOTIVATION FOR ACTIVITY. BED IN LOW POSITION, SIDE RAILS UP X2, CALL LIGHT IN REACH.
--- NOTE | 2018-02-08 19:30 | NUR ---
REPORT OBTAINED, PT IN BED WATCHING TV, REQUESTING SOMETHING FOR ITCHING.
[2018-02-08 19:33] VITALS: BP 114/54
[2018-02-08] MEDS: LATANOPROST OPHT DROP 2.5 ML BOTTLE OP SCH (20:50)
[2018-02-08] MEDS: MONTELUKAST SODIUM 10 MG TABLET PO SCH (20:51)
[2018-02-08] MEDS: ATORVASTATIN 10 MG TABLET PO SCH (20:51)
[2018-02-09] MEDS: HYDROCODONE/APAP 10-325 MG TABLET PO PRN ×3 (06:27→21:43)
[2018-02-09 06:30] VITALS: BP 147/65
[2018-02-09] MEDS: ESOMEPRAZOLE 40 MG PO SCH (06:32)
[2018-02-09] MEDS: LEVOTHYROXINE SODIUM 25 MCG TABLET PO SCH (06:33)
--- NOTE | 2018-02-09 07:00 | NUR ---
MEDICATED FOR RIGHT HIP PAIN REQUESTED WITH GOOD RESULTS/ HESITANT TO MOVE. INFORMED REASONS OF WHY SHE SHOULD.
[2018-02-09 08:00] VITALS: BP 116/52
[2018-02-09] MEDS: CHOLECALCIFEROL 1,000 UNIT TABLET PO SCH (08:29)
[2018-02-09] MEDS: ALLOPURINOL 100 MG TABLET PO SCH (08:31)
[2018-02-09] MEDS: DOCUSATE SODIUM 100 MG CAPSULE PO SCH ×2 (08:31→17:34)
[2018-02-09] MEDS: CINACALCET HCL 30 MG TABLET PO SCH (08:31)
[2018-02-09] MEDS: METFORMIN HCL 500 MG TABLET PO SCH ×2 (08:31→17:34)
[2018-02-09] MEDS: MOVANTIK 25 MG PO SCH (08:33)
[2018-02-09] MEDS: MIRABEGRON 25 MG PO SCH (08:33)
[2018-02-09] MEDS: EDARBI 40 MG PO SCH (08:33)
[2018-02-09] MEDS: MAGNESIUM OXIDE 250 MG TABLET PO SCH ×2 (08:34→21:44)
[2018-02-09] MEDS: methylPREDNISolone 4 MG TABLET PO SCH (08:35)
[2018-02-09] MEDS: LIDOCAINE 5% PATCH TD SCH (08:41)
[2018-02-09] MEDS: MDI INH SCH ×2 (08:43→21:44)
[2018-02-09] MEDS: SYMBICORT INH SCH ×2 (08:43→21:44)
[2018-02-09] MEDS: HYDROCODONE/APAP 5-325MG TABLET PO PRN (12:46)
[2018-02-09] MEDS: LEVOFLOXACIN 250 MG TABLET PO SCH (13:43)
[2018-02-09 16:14] VITALS: BP 139/57
--- NOTE | 2018-02-09 17:55 | NUR ---
PATIENT HAS BEEN COOPERATIVE WITH CARE, AND PARTICIPATED IN THERAPY TODAY. UPON RETURN FROM THERAPY PATIENT REPORTED SEVERE PAIN IN RIGHT PELVIC AREA. CURRENTLY PATIENT IN BED NO DISTRESS NOTED, BED IN LOW POSITION, DESMOND ERAILS UP X2. CALL LIGHT IN REACH.
[2018-02-09 20:06] VITALS: BP 103/68
[2018-02-09] MEDS: MONTELUKAST SODIUM 10 MG TABLET PO SCH (21:44)
[2018-02-09] MEDS: ATORVASTATIN 10 MG TABLET PO SCH (21:44)
[2018-02-09] MEDS: LATANOPROST OPHT DROP 2.5 ML BOTTLE OP SCH (21:44)
[2018-02-09] MEDS ORDERED: LINEZOLID 600 MG TABLET ONE (22:17)
[2018-02-09] MEDS: LINEZOLID 600 MG TABLET PO SCH (22:26)
[2018-02-10] MEDS: HYDROCODONE/APAP 5-325MG TABLET PO PRN ×4 (04:53→21:27)
--- NOTE | 2018-02-10 05:06 | NUR ---
contact precautions maintained. (+) MRSA i urine. AAOx3.needs attended. kept comfortable. compliant with care.complained of pain left hip. [place] 1 tab given as needed. Will monitor for effectiveness. incontinent of urine x2 kept clean and dry. Isolation precautions maintained.
[2018-02-10 05:20] VITALS: BP 135/70
[2018-02-10] MEDS: LEVOTHYROXINE SODIUM 25 MCG TABLET PO SCH (06:30)
[2018-02-10] MEDS: ESOMEPRAZOLE 40 MG PO SCH (06:30)
[2018-02-10] MEDS: SPIRONOLACTONE 25 MG TABLET PO SCH (08:28)
[2018-02-10] MEDS: CHOLECALCIFEROL 1,000 UNIT TABLET PO SCH (08:28)
[2018-02-10] MEDS: DOCUSATE SODIUM 100 MG CAPSULE PO SCH ×2 (08:28→17:21)
[2018-02-10] MEDS: CINACALCET HCL 30 MG TABLET PO SCH (08:28)
[2018-02-10] MEDS: ALLOPURINOL 100 MG TABLET PO SCH (08:28)
[2018-02-10] MEDS: CLOPIDOGREL 75 MG TABLET PO SCH (08:28)
[2018-02-10] MEDS: LIDOCAINE 5% PATCH TD SCH ×2 (08:28→08:47)
[2018-02-10] MEDS: EDARBI 40 MG PO SCH (08:29)
[2018-02-10] MEDS: MOVANTIK 25 MG PO SCH (08:29)
[2018-02-10] MEDS: MIRABEGRON 25 MG PO SCH (08:29)
[2018-02-10] MEDS: MAGNESIUM OXIDE 250 MG TABLET PO SCH ×2 (08:29→20:32)
[2018-02-10] MEDS: LINEZOLID 600 MG TABLET PO SCH ×2 (08:30→20:35)
[2018-02-10 08:36] VITALS: BP 123/50
[2018-02-10] MEDS: SYMBICORT INH SCH ×2 (08:44→20:36)
[2018-02-10] MEDS: MDI INH SCH ×2 (08:44→20:36)
[2018-02-10] MEDS ORDERED: NITROFURANTOIN/NITROFURAN MAC 100 MG CAPSULE PO SCH (09:00)
[2018-02-10] MEDS: METFORMIN HCL 500 MG TABLET PO SCH ×2 (09:19→17:21)
[2018-02-10] MEDS: LEVOFLOXACIN 250 MG TABLET PO SCH (12:36)
--- NOTE | 2018-02-10 18:13 | NUR ---
Contact isolation maintained, pain medications given as needed. Emesis x2 about 50cc each time. BMx1 today, afebrile
[2018-02-10 19:30] VITALS: BP 109/46
[2018-02-10] MEDS: LATANOPROST OPHT DROP 2.5 ML BOTTLE OP SCH (20:30)
[2018-02-10] MEDS: MONTELUKAST SODIUM 10 MG TABLET PO SCH (20:34)
[2018-02-10] MEDS: ATORVASTATIN 10 MG TABLET PO SCH (20:35)
--- NOTE | 2018-02-10 22:35 | NUR ---
AWAKE,ALERT, VERBALIZES NEEDS,WANTED ONLY BEDSIDE PEACHES TO TAKE MEDICATIONS.LOWER EXTREMITIES WITH JONATHAN BANDAGE ORDERED.LOWER EXTREMITIES ELEVATED WITH PILLOWS,COMPLAINED OF ABDOMINAL PAIN,NORCO WITH CRACKERS AND PUDDING GIVEN PLUS TEA.PT HAVE POOR APPETITE.REPOSITIONED AND CHANGED .
[2018-02-11] MEDS: ESOMEPRAZOLE 40 MG PO SCH (05:39)
[2018-02-11] MEDS: LEVOTHYROXINE SODIUM 25 MCG TABLET PO SCH (05:40)
[2018-02-11] MEDS: HYDROCODONE/APAP 5-325MG TABLET PO PRN ×3 (05:41→16:52)
--- NOTE | 2018-02-11 06:33 | NUR ---
PT COMPLAINED OF GENERALIZED PAIN .KNEES.PELVIS.LEGS,REPOSITIONED FOR COMFORT.PT HAS NOT URINATE YET ,CHECKED BLAADER WITH BLADDER SCANNER 112CC ONLY.PT NOT DRINKING FLUIDS WELL.ENCOURAGED TO DRINK FLUIDS ,REFUSED.SLEPT AT SHORT INTERVALS.
[2018-02-11 07:08] VITALS: BP 117/45
[2018-02-11] MEDS: DOCUSATE SODIUM 100 MG CAPSULE PO SCH ×2 (08:22→17:09)
[2018-02-11] MEDS: CINACALCET HCL 30 MG TABLET PO SCH (08:23)
[2018-02-11] MEDS: CHOLECALCIFEROL 1,000 UNIT TABLET PO SCH (08:23)
[2018-02-11] MEDS: METFORMIN HCL 500 MG TABLET PO SCH ×2 (08:23→17:10)
[2018-02-11] MEDS: ALLOPURINOL 100 MG TABLET PO SCH (08:23)
[2018-02-11] MEDS: LINEZOLID 600 MG TABLET PO SCH ×2 (08:24→20:31)
[2018-02-11] MEDS: MAGNESIUM OXIDE 250 MG TABLET PO SCH ×2 (08:24→20:30)
[2018-02-11] MEDS: MIRABEGRON 25 MG PO SCH (08:25)
[2018-02-11] MEDS: methylPREDNISolone 4 MG TABLET PO SCH (08:26)
[2018-02-11] MEDS: MOVANTIK 25 MG PO SCH (08:26)
[2018-02-11] MEDS: EDARBI 40 MG PO SCH (08:26)
[2018-02-11] MEDS: MDI INH SCH ×2 (08:27→20:32)
[2018-02-11] MEDS: SYMBICORT INH SCH ×2 (08:27→20:32)
[2018-02-11] MEDS: LIDOCAINE 5% PATCH TD SCH (08:30)
--- NOTE | 2018-02-11 10:00 | NUR ---
patient report received from cook night nurse. pt assessed. pt vitals stable. pt tolerates room air. pt continues to be AOx 2-3 and shows signs of anxiety. pt complained of pain on right back. pt given pain meds as needed. pt given other meds whole. no signs of aspiration . No new injuries noted upon assessment , encouraged pt to deep breathe . Pt needs further instructions in coaching for anxiety. Applied Lidocaine patch on right hip , will continue to monitor.
[2018-02-11] MEDS: LEVOFLOXACIN 250 MG TABLET PO SCH (13:10)
[2018-02-11 16:06] VITALS: BP 133/53
--- NOTE | 2018-02-11 17:51 | NUR ---
Patient stable throughout the day , patient c/o pain and pain medication given which was effective for patient . Removed bandages on bilateral feet , feeling relief from pain , and pedals pulses strong and present . edema noted but reduced , and legs elevated to prevent further edema. patient put in aspiration precaution to prevent aspiration. Vital signs stable .
--- NOTE | 2018-02-11 19:30 | NUR ---
Report received. Patient in bed AAO no acute distress noted. Seen by Kalli FUENTES. On contact isolation for MRSA in urine. Fall and safety precautions discussed with patient; verbalized understanding. Assessment completed.
[2018-02-11] MEDS: LATANOPROST OPHT DROP 2.5 ML BOTTLE OP SCH (20:30)
--- NOTE | 2018-02-11 20:30 | NUR ---
PO medications given. No swallowing difficulty, but patient eats bread when taking one pill at a time. Both legs edematous; elevated on pillows. Pedal pulses palpable. Addendum: 02/12/18 at 0427 by RASHEL PHAM RN Amended: Links added. Addendum: 02/12/18 at 0431 by RASHEL PHAM RN Amended: Links added.
[2018-02-11] MEDS: MONTELUKAST SODIUM 10 MG TABLET PO SCH (20:31)
[2018-02-11] MEDS: ATORVASTATIN 10 MG TABLET PO SCH (20:31)
[2018-02-11 20:53] VITALS: BP 95/50
[2018-02-12] MEDS: Z GUARD REMEDY PASTE 57 GM TUBE TOP PRN (01:11)
[2018-02-12] MEDS: HYDROCODONE/APAP 5-325MG TABLET PO PRN ×2 (01:56→13:38)
--- NOTE | 2018-02-12 01:56 | NUR ---
Patient called; requesting for pain medication. [place] given for back pains. Am care rendered. Diaper changed. Skin care provided. Photos of skin breakdown taken and documented. Patient repositioned for comfort. Addendum: 02/12/18 at 0431 by RASHEL PHAM RN Amended: Links added.
[2018-02-12 05:38] VITALS: BP 110/67
[2018-02-12] MEDS: LEVOTHYROXINE SODIUM 25 MCG TABLET PO SCH (06:40)
[2018-02-12] MEDS: ESOMEPRAZOLE 40 MG PO SCH (06:42)
--- NOTE | 2018-02-12 06:48 | NUR ---
Slept fairly well during the night. VS stable. Contact isolation maintained.
[2018-02-12 07:33] VITALS: BP 108/51
[2018-02-12] MEDS: DOCUSATE SODIUM 100 MG CAPSULE PO SCH ×2 (08:42→16:54)
[2018-02-12] MEDS: CHOLECALCIFEROL 1,000 UNIT TABLET PO SCH (08:42)
[2018-02-12] MEDS: METFORMIN HCL 500 MG TABLET PO SCH ×2 (08:43→17:37)
[2018-02-12] MEDS: CINACALCET HCL 30 MG TABLET PO SCH (08:43)
[2018-02-12] MEDS: ALLOPURINOL 100 MG TABLET PO SCH (08:43)
[2018-02-12] MEDS: CLOPIDOGREL 75 MG TABLET PO SCH ×2 (08:43→08:49)
[2018-02-12] MEDS: LINEZOLID 600 MG TABLET PO SCH (08:44)
[2018-02-12] MEDS: MAGNESIUM OXIDE 250 MG TABLET PO SCH (08:44)
[2018-02-12] MEDS: MOVANTIK 25 MG PO SCH (08:44)
[2018-02-12] MEDS: EDARBI 40 MG PO SCH (08:45)
[2018-02-12] MEDS: MIRABEGRON 25 MG PO SCH (08:45)
[2018-02-12] MEDS: LIDOCAINE 5% PATCH TD SCH (08:45)
[2018-02-12] MEDS: SPIRONOLACTONE 25 MG TABLET PO SCH (08:46)
[2018-02-12] MEDS: MDI INH SCH (08:47)
[2018-02-12] MEDS: SYMBICORT INH SCH (08:47)
--- NOTE | 2018-02-12 10:15 | NUR ---
Nurse Notes: patient refused to take her Plavix. Explained the risks and benefits several times still patient refused to take the medication. Dr. Ny informed of patient's refusal.
[2018-02-12 13:32] VITALS: BP 140/72
[2018-02-12] MEDS: LEVOFLOXACIN 250 MG TABLET PO SCH (13:37)
[2018-02-12] MEDS ORDERED: ONDANSETRON HCL 4 MG TABLET PO PRN (14:45)
[2018-02-12 16:19] VITALS: BP 114/48
--- NOTE | 2018-02-12 17:50 | NUR ---
Nurse Notes: patient alert and oriented , able to make needs known remained stable throughout the shift with no acute changes noted. Kept clean, dry and comfortable. safety precautions observed. Hourly rounding done, call light and telephone within reach at all times, bed alarm and bed brakes on for safety. patient was discharged to Medical surgical floor in [facility] for UTI and MRSA of the urine. Report given to Tanna SEGURA. All medications that were kept from pharmacy were snet with the patient going to Med Surg unit, all belongings complete. No missing items. Health teachings were given to the patient. patient was transported to Med Surg Unit with no SOB or distress. Noelle, patient's daughter was notified.
[2018-02-12] MEDS ORDERED: BISA10SU8 RC (20:12)
[2018-02-12] MEDS ORDERED: ALBU2.5V38 NEB (20:28)
[2018-02-12] MEDS ORDERED: LATA2.5D2 EACHEYE (20:29)
[2018-02-12] MEDS ORDERED: LEVO500T2 PO (20:34)
[2018-02-12] MEDS ORDERED: LINE600T PO (20:40)
[2018-02-12] MEDS ORDERED: METH4TAB17 PO (21:06)
== END 2018-02-12 17:55 | disposition short-term general hospital (02) | DRG 552 ==
PROVIDERS: ADMIT Physical Medicine & Rehabilitation Pain Medicine; ATTEND Physical Medicine & Rehabilitation Pain Medicine
DX: M51.16 Intervertebral disc disorders with radiculopathy, lumbar region (principal); D68.59 Other primary thrombophilia; I50.32 Chronic diastolic (congestive) heart failure; N39.0 Urinary tract infection, site not specified; J98.11 Atelectasis; L03.116 Cellulitis of left lower limb; L03.115 Cellulitis of right lower limb; I11.0 Hypertensive heart disease with heart failure; E11.9 Type 2 diabetes mellitus without complications; D32.9 Benign neoplasm of meninges, unspecified; D50.9 Iron deficiency anemia, unspecified; E66.9 Obesity, unspecified; I70.0 Atherosclerosis of aorta; M47.28 Other spondylosis with radiculopathy, sacral and sacrococcygeal region; S32.599D Other specified fracture of unspecified pubis, subsequent encounter for fracture with routine healing; X58.XXXD Exposure to other specified factors, subsequent encounter; J45.909 Unspecified asthma, uncomplicated; Z68.30 Body mass index [BMI] 30.0-30.9, adult; M77.9 Enthesopathy, unspecified; I87.2 Venous insufficiency (chronic) (peripheral); B95.62 Methicillin resistant Staphylococcus aureus infection as the cause of diseases classified elsewhere; Z91.81 History of falling; B96.5 Pseudomonas (aeruginosa) (mallei) (pseudomallei) as the cause of diseases classified elsewhere; D63.8 Anemia in other chronic diseases classified elsewhere; E03.9 Hypothyroidism, unspecified; E83.42 Hypomagnesemia; F32.9 Major depressive disorder, single episode, unspecified; F41.9 Anxiety disorder, unspecified; K21.9 Gastro-esophageal reflux disease without esophagitis; K42.9 Umbilical hernia without obstruction or gangrene; M25.78 Osteophyte, vertebrae; M41.9 Scoliosis, unspecified; M43.16 Spondylolisthesis, lumbar region; M48.02 Spinal stenosis, cervical region; M48.04 Spinal stenosis, thoracic region; M48.061 Spinal stenosis, lumbar region without neurogenic claudication; M54.30 Sciatica, unspecified side; M85.80 Other specified disorders of bone density and structure, unspecified site; G89.29 Other chronic pain; R29.6 Repeated falls; R53.81 Other malaise; Z90.49 Acquired absence of other specified parts of digestive tract; Z88.6 Allergy status to analgesic agent; Z88.1 Allergy status to other antibiotic agents; Z88.0 Allergy status to penicillin; Z88.2 Allergy status to sulfonamides; Z88.8 Allergy status to other drugs, medicaments and biological substances; M15.9 Polyosteoarthritis, unspecified; R32 Unspecified urinary incontinence; Z79.52 Long term (current) use of systemic steroids
CPT/HCPCS: 36415; 70030-TC; 83735; 84100; 85025; 87077; 87086; 92523; 92610; 97110; 97112; 97116; 97530; 97535; J7509; J8499; Q0162; Q0163

== ENCOUNTER 2018-02-12 18:08 | Inpatient (IN) | payer MEDICARE, MEDICAID ==
[~2018-02-12] VITALS: Ht 152.4 cm; Wt 68.0 kg
--- NOTE | 2018-02-12 18:00 | NUR ---
PT ARRIVED TO UNIT IN A WHEEL CHAIR. PT IS UNABLE TO AMBULATE, AOX3, CALM, NO SIGNS OF RESPIRATORY DISTRESS. LAST BM 02/11/18 AND LAST VOID AT 1400. CONTINUE TO MONITOR.
[~2018-02-12 18:08] MED LIST changes: -ACET-1467 PO; -ACET325T53 PO; -ACID1TAB4 PO; -ALBU2.5V13 IH; +ALBU6.7H IH; +AZIL40TA PO; +BUDE10.2 IH; +CHOL10002 PO; +DOCU100C36 PO; -DOXY100T2 PO; +ESOM40CA PO; -FAMO20TA8 PO; -GLIM1TAB PO; +HYDR-3326 PO; +HYDR-548 PO; +LEVO25TA9 PO; +LIDO30AD10 TD; -MAGN400O6 PO; +METF500T6 PO; +NALO25TA PO; -PANT40TA2 PO
[2018-02-12 18:19] VITALS: BP 111/41
--- NOTE | 2018-02-12 18:30 | NUR ---
PT IS LAYING IN BED WITH NO SIGNS OF RESPIRATORY DISTRESS, CALM, COOPERATIVE, AOX3, ALLOWS CARE, SKIN INTACT, EDEMA OF BILATERAL LOWER EXTREMITIES, LEGS ELEVATED ON PILLOW. PT HAS NO IV SITE AT THIS TIME. WILL ENDORSE TO EMPLOYEE COMMUNICATIONS INTERN. CONTINUE TO MONITOR PT.
--- NOTE | 2018-02-12 19:10 | NUR ---
RECEIVED PT AWAKE, ALERT AND ORIENTEDX3. PT SHOWS NO SIGNS OF DISTRESS. PT ON CONTACT PRECAUTION FOR MRSA IN URINE. CALL LIGHT WITHIN REACH. BED ALAM ON AND IN LOW POSITION, SIDE RAILS UPX2. WILL CONTINUE TO MONITOR.
[2018-02-12] MEDS ORDERED: BISA10SU8 RC (20:12)
[2018-02-12] MEDS ORDERED: ALBU2.5V38 NEB (20:28)
[2018-02-12] MEDS ORDERED: LATA2.5D2 EACHEYE (20:29)
[2018-02-12] MEDS ORDERED: LEVO500T2 PO (20:34)
[2018-02-12] MEDS ORDERED: LINE600T PO (20:40)
[2018-02-12] MEDS: HYDROCODONE/APAP 10-325 MG TABLET PO PRN (20:50)
[2018-02-12] MEDS: MAGNESIUM OXIDE 250 MG TABLET PO SCH (20:59)
[2018-02-12] MEDS ORDERED: MONTELUKAST SODIUM 10 MG TABLET PO SCH (21:00)
[2018-02-12] MEDS ORDERED: ATORVASTATIN 10 MG TABLET PO SCH (21:00)
[2018-02-12] MEDS ORDERED: METH4TAB17 PO (21:06)
[2018-02-12] MEDS ORDERED: BISACODYL 10 MG SUPP.RECT RC PRN (23:45)
--- NOTE | 2018-02-13 00:30 | NUR ---
PT WOKE UP AND SAID SHE'S IN PAIN AND ITCHY ON HER LEGS. NOTIFY DR FORK ASSEMBLER REGARDING HER PAIN AND ITCHINESS. REPOSITION THE PT. SAFETY PROVIDED. WILL CONTINUE TO MONITOR.
[2018-02-13] MEDS ORDERED: diphenhydrAMINE 25 MG CAP PO PRN (01:30)
[2018-02-13] MEDS ORDERED: MORPHINE SULFATE 2 MG/1 ML DISP.SYRIN IV ONE (01:30)
[2018-02-13] MEDS ORDERED: diphenhydrAMINE 1% CREAM 28.3 GM TUBE TP PRN ×2 (01:30→07:30)
--- NOTE | 2018-02-13 01:30 | NUR ---
PT SLEEPING SOUNDLY WHEN I WAS ABOUT TO GIVE THE PAIN MEDICATION.JUST PUT SLEEP IN THE NONADMINISTERED MEDICATION FOR PT. SAFETY PROVIDED FOR THE PT . WILL CONTINUE TO MONITOR.
[2018-02-13 06:02] VITALS: BP 118/53
[2018-02-13] MEDS: HYDROCODONE/APAP 10-325 MG TABLET PO PRN ×2 (06:14→16:29)
[2018-02-13 06:18] LABS: BASOPHILS # (AUTO) 0.1 K/uL (0.0-8.0); BASOPHILS % (AUTO) 1.3 % (0.0-2.0); EOSINOPHILS # (AUTO) 1.2 K/uL (0.0-0.7); EOSINOPHILS % (AUTO) 12.8 % (0.0-7.0); HEMOGLOBIN 11.5 g/dL (10.9-14.3); LYMPHOCYTES # (AUTO) 2.4 K/uL (20.0-40.0); LYMPHOCYTES % (AUTO) 25.6 % (20.5-51.5); MEAN CORPUSCULAR HEMOGLOBIN 26.9 uug (24.7-32.8); MEAN CORPUSCULAR HGB CONC 34 g/dL (32.3-35.6); MEAN CORPUSCULAR VOLUME 79.8 fL (75.5-95.3); MONOCYTES # (AUTO) 0.8 K/uL (2.0-10.0); MONOCYTES % (AUTO) 8.6 % (0.0-11.0); NEUTROPHILS % (AUTO) 51.7 % (38.5-71.5); PLATELET COUNT (AUTO) 398 K/uL (179-408); RED BLOOD CELL COUNT(AUTO) 4.27 MIL/uL (3.63-4.92); WHITE BLOOD COUNT (AUTO) 9.6 K/uL (3.8-11.8)
[2018-02-13 06:21] LABS: ALANINE AMINOTRANSFERASE 14 U/L (14-59); ALKALINE PHOSPHATASE 64 U/L (50-136); ASPARTATE AMINOTRANSFERASE 16 U/L (15-37); BILIRUBIN,TOTAL 0.2 mg/dL (0.2-1.0); CARBON DIOXIDE 26 mmol/L (21-32); CHLORIDE 103 mmol/L (98-107); CREATININE 1.7 mg/dL (0.6-1.3); GLUCOSE 82 mg/dL (74-106); MAGNESIUM 1.7 mg/dL (1.8-2.4); PHOSPHOROUS 3.5 mg/dL (2.5-4.9); POTASSIUM 4.5 mmol/L (3.5-5.1); TOTAL PROTEIN, SERUM 5.5 g/dL (6.4-8.2); UREA NITROGEN, BLOOD 42 mg/dL (7-18)
--- NOTE | 2018-02-13 06:32 | NUR ---
PT SLEPT THROUGHOUT THE SHIFT EXCEPT AT 1200 MIDNIGHT THAT SHE AWAKEN AND IN PAIN AND ASKING FOR PAIN MEDICATION. PT SHOWS NO SIGNS OF DISTRESS. PT FEEL PAIN ON HER LEGS. PRESCRIBED MEDICATION GIVEN AND PT TOLERATED IT WELL. SAFETY AND COMFORT PROVIDED. WILL ENDORSE TO DAYSHIFT NURSE.
[2018-02-13] MEDS ORDERED: LEVOTHYROXINE SODIUM 25 MCG TABLET PO SCH (07:30)
[2018-02-13] MEDS ORDERED: Medication Not On Formulary EA (Esomeprazole Mag Trihydrate (Nexium) 40 MG) PO SCH (07:30)
[2018-02-13] MEDS ORDERED: ESOMEPRAZOLE 40MG PO SCH (07:30)
--- NOTE | 2018-02-13 07:35 | NUR ---
PT AOX3, LUNG SOUNDS CLEAR, DENIES PAIN AT THIS TIME, SHOWS NO SIGNS OF RESPIRATORY DISTRESS, FEET ELEVATED, BILATERAL EXTREMITIES HAVE EDEMA ON THE FOOT RIGHT SIDE +2, LEFT FOOT +1. GROIN AND AND UNDER THE BREAST ARE NOT RED AND SKIN IS INTACT. CONTINUE TO MONITOR PT. REPORT RECEIVED FROM BAND BIAS MACHINE OPERATOR NURSE.
[2018-02-13] MEDS ORDERED: METFORMIN HCL 500 MG TABLET PO SCH ×2 (08:00)
[2018-02-13] MEDS: MAGNESIUM OXIDE 250 MG TABLET PO SCH (08:15)
[2018-02-13] MEDS: DOCUSATE SODIUM 100 MG CAPSULE PO SCH ×2 (08:16→17:00)
[2018-02-13] MEDS ORDERED: LINEZOLID 600 MG TABLET PO SCH (09:00)
[2018-02-13] MEDS ORDERED: Medication Not On Formulary EA (Naloxegol Oxalate (Movantik) 25 MG) PO SCH (09:00)
[2018-02-13] MEDS ORDERED: LEVOFLOXACIN 500 MG TABLET PO SCH (09:00)
[2018-02-13] MEDS ORDERED: CINACALCET HCL 30 MG TABLET PO SCH (09:00)
[2018-02-13] MEDS ORDERED: CHOLECALCIFEROL 1,000 UNIT TABLET PO SCH (09:00)
[2018-02-13] MEDS ORDERED: Medication Not On Formulary EA (Magnesium Oxide (Magnesium) 500 MG) PO SCH (09:00)
[2018-02-13] MEDS ORDERED: methylPREDNISolone 4 MG TABLET PO SCH (09:00)
[2018-02-13] MEDS ORDERED: MIRABEGRON PO SCH (09:00)
[2018-02-13] MEDS ORDERED: MOVANTIK (NALOXEGOL) 25MG PO SCH (09:00)
[2018-02-13] MEDS ORDERED: ALLOPURINOL 100 MG TABLET PO SCH (09:00)
[2018-02-13] MEDS ORDERED: EDARBI 40 MG PO SCH (09:00)
[2018-02-13] MEDS ORDERED: LIDOCAINE 5% PATCH TD SCH (09:00)
[2018-02-13] MEDS ORDERED: SYMBICORT INH SCH (09:45)
[2018-02-13] MEDS ORDERED: [UNRECOGNIZED DRUG - OTHER] INH SCH (09:45)
[2018-02-13 11:30] VITALS: BP 102/45
[2018-02-13] MEDS ORDERED: SPIRONOLACTONE 25 MG TABLET PO SCH (12:01)
[2018-02-13] MEDS ORDERED: MAGNESIUM SULFATE/D5W 100 ML IV SCH (13:15)
[2018-02-13] MEDS ORDERED: IV NORMAL SALINE 250 ML IV ONE (13:15)
[2018-02-13 15:40] VITALS: BP 118/39
--- NOTE | 2018-02-13 18:00 | NUR ---
PT DISCHARGED WITH ALL BELONGINGS, PRESCRIPTIONS, VALUABLES, HOME MEDICATIONS AND EXIT CARE PAPER WORK, DAUGHTER AND PATIENT REFUSED PHOTOS TO BE TAKEN STATING, " I DO NOT WANT MORE PICTURES, I JUST WANT TO LEAVE NOW." PT IV AND ID BAND REMOVED, STABLE TO DISCHARGE, AOX3, D/C WITH DAUGHTER SONY IN PRIVATE CAR. PT BROUGHT DOWN IN WHEEL CHAIR BY STAFF.
[2018-02-13 18:22] VITALS: BP 118/39
[2018-02-13] MEDS ORDERED: LATANOPROST OPHT DROP 2.5 ML BOTTLE EACHEYE SCH (21:00)
[2018-02-14] MEDS ORDERED: LEVOTHYROXINE SODIUM 25 MCG TABLET PO SCH (07:00)
[2018-02-14] MEDS ORDERED: methylPREDNISolone 4 MG TABLET PO SCH (09:00)
[2018-02-14] MEDS ORDERED: SPIRONOLACTONE 25 MG TABLET PO SCH (09:00)
[2018-02-14] MEDS ORDERED: CLOPIDOGREL 75 MG TABLET PO SCH (09:00)
[2018-02-14] MEDS ORDERED: LEVOFLOXACIN 250 MG TABLET PO SCH (13:00)
[2018-02-14] MEDS ORDERED: LEVOFLOXACIN 500 MG TABLET PO SCH (13:00)
== END 2018-02-13 18:00 | disposition home health service (06) | DRG 689 ==
LOC: MED 18:08
PROVIDERS: ADMIT Internal Medicine; ATTEND Internal Medicine
DX: N39.0 Urinary tract infection, site not specified (principal); N17.0 Acute kidney failure with tubular necrosis; E43 Unspecified severe protein-calorie malnutrition; I50.32 Chronic diastolic (congestive) heart failure; M51.17 Intervertebral disc disorders with radiculopathy, lumbosacral region; Z53.09 Procedure and treatment not carried out because of other contraindication; B96.5 Pseudomonas (aeruginosa) (mallei) (pseudomallei) as the cause of diseases classified elsewhere; B95.62 Methicillin resistant Staphylococcus aureus infection as the cause of diseases classified elsewhere; E66.9 Obesity, unspecified; Z68.29 Body mass index [BMI] 29.0-29.9, adult; E11.620 Type 2 diabetes mellitus with diabetic dermatitis; Z79.84 Long term (current) use of oral hypoglycemic drugs; K21.9 Gastro-esophageal reflux disease without esophagitis; J45.909 Unspecified asthma, uncomplicated; D50.9 Iron deficiency anemia, unspecified; I11.0 Hypertensive heart disease with heart failure; Z79.52 Long term (current) use of systemic steroids; Z79.02 Long term (current) use of antithrombotics/antiplatelets; Z91.81 History of falling; Z90.49 Acquired absence of other specified parts of digestive tract; M19.90 Unspecified osteoarthritis, unspecified site; I87.2 Venous insufficiency (chronic) (peripheral); F32.9 Major depressive disorder, single episode, unspecified; F41.9 Anxiety disorder, unspecified; M21.942 Unspecified acquired deformity of hand, left hand; M21.941 Unspecified acquired deformity of hand, right hand; M20.002 Unspecified deformity of left finger(s); M20.001 Unspecified deformity of right finger(s); N32.81 Overactive bladder; D32.9 Benign neoplasm of meninges, unspecified; Z74.09 Other reduced mobility
CPT/HCPCS: 36415; 83735; 84100; 85025; J3475; J3535; J7030; J7040; J7050; J7509; J8499

== ENCOUNTER 2018-07-03 16:38 | Inpatient (IN) | payer MEDICARE, MEDICAID ==
[~2018-07-03] VITALS: Ht 152.4 cm; Wt 59.4 kg
[~2018-07-03 16:38] MED LIST changes: +BISA10SU8 RC; -HYDR-3326 PO; +HYDR-4354 PO; -HYDR-548 PO; +LATA2.5D2 EACHEYE; +LEVO500T2 PO; +LINE600T PO; +METF-440 PO; -METF500T6 PO; +METH4TAB17 PO; -SPIR25TA4 PO; +SPIR25TA6 PO
[2018-07-03] MEDS ORDERED: MAGNESIUM HYDROXIDE 30 ML LIQUID UDC PO PRN (17:00)
[2018-07-03] MEDS ORDERED: Z GUARD REMEDY PASTE 57 GM TUBE TOP PRN (17:00)
[2018-07-03] MEDS ORDERED: CLOT15CR63 TP (17:20)
[2018-07-03] MEDS ORDERED: LIDO30AD10 TD (17:24)
[2018-07-03] MEDS ORDERED: HYDR-3326 PO (17:26)
[2018-07-03 17:27] VITALS: BP 155/72
[2018-07-03] MEDS ORDERED: HYDROCODONE/APAP 5-325MG TABLET PO PRN (17:45)
[2018-07-03] MEDS ORDERED: ALBUTEROL SULFATE 8 GM HFA.AER.AD IH PRN (17:45)
[2018-07-03] MEDS ORDERED: BISACODYL 10 MG SUPP.RECT RC PRN (17:45)
[2018-07-03] MEDS ORDERED: HYDROCODONE/APAP 10-325 MG TABLET PO PRN (17:45)
[2018-07-03] MEDS ORDERED: ALBUTEROL SULFATE 2.5 MG/3 ML NEBU NEB PRN (19:30)
[2018-07-03 20:50] VITALS: BP 154/63
[2018-07-03] MEDS ORDERED: FLUTICASONE/SALMETEROL 250/50 INHALER INH SCH (21:00)
[2018-07-03] MEDS ORDERED: MONTELUKAST SODIUM 10 MG TABLET PO SCH (21:00)
[2018-07-03] MEDS ORDERED: TRAVOPROST 0.004% OPHT DROP 2.5 ML BOTTLE EACHEYE SCH (21:00)
[2018-07-03] MEDS: ATORVASTATIN 10 MG TABLET PO SCH (21:16)
[2018-07-03] MEDS: LATANOPROST OPHT DROP 2.5 ML BOTTLE EACHEYE SCH (21:17)
[2018-07-04 06:02] VITALS: BP 141/69
[2018-07-04] MEDS: PANTOPRAZOLE SODIUM 40 MG TABLET.DR PO SCH (06:18)
[2018-07-04] MEDS: LEVOTHYROXINE SODIUM 25 MCG TABLET PO SCH (06:19)
[2018-07-04 08:34] VITALS: BP 157/68
[2018-07-04] MEDS: LIDOCAINE 5% PATCH TD SCH (08:54)
[2018-07-04] MEDS: CLOTRIMAZOLE 1% CREAM 30 GM TUBE TP SCH ×2 (08:57→17:21)
[2018-07-04] MEDS ORDERED: LIDOCAINE 5% PATCH TD SCH (09:00)
[2018-07-04] MEDS: DOCUSATE SODIUM 100 MG CAPSULE PO SCH ×2 (09:00→17:21)
[2018-07-04] MEDS: ALLOPURINOL 100 MG TABLET PO SCH (09:00)
[2018-07-04] MEDS: CINACALCET HCL 30 MG TABLET PO SCH (09:00)
[2018-07-04] MEDS: FLUTICASONE/VILANTEROL 1 EACH BLST.W.DEV INH SCH (09:00)
[2018-07-04] MEDS: CHOLECALCIFEROL 1,000 UNIT TABLET PO SCH (09:00)
[2018-07-04] MEDS: ACETAMINOPHEN/CODEINE 300-30 MG TABLET PO PRN (10:18)
[2018-07-04 16:38] VITALS: BP 132/49
[2018-07-04] MEDS: MONTELUKAST SODIUM 10 MG TABLET PO SCH (17:21)
[2018-07-04] MEDS: ATORVASTATIN 10 MG TABLET PO SCH (20:57)
[2018-07-04] MEDS: LATANOPROST OPHT DROP 2.5 ML BOTTLE EACHEYE SCH (20:57)
[2018-07-04 21:57] VITALS: BP 144/60
[2018-07-05 04:30] VITALS: BP 139/56
[2018-07-05] MEDS: PANTOPRAZOLE SODIUM 40 MG TABLET.DR PO SCH (06:22)
[2018-07-05] MEDS: LEVOTHYROXINE SODIUM 25 MCG TABLET PO SCH (06:22)
[2018-07-05 08:01] VITALS: BP 126/59
[2018-07-05] MEDS: CHOLECALCIFEROL 1,000 UNIT TABLET PO SCH (08:45)
[2018-07-05] MEDS: CINACALCET HCL 30 MG TABLET PO SCH (08:45)
[2018-07-05] MEDS: ALLOPURINOL 100 MG TABLET PO SCH (08:45)
[2018-07-05] MEDS: SPIRONOLACTONE 25 MG TABLET PO SCH (08:45)
[2018-07-05] MEDS: CLOPIDOGREL 75 MG TABLET PO SCH (08:45)
[2018-07-05] MEDS: DOCUSATE SODIUM 100 MG CAPSULE PO SCH ×2 (08:45→16:57)
[2018-07-05] MEDS: LIDOCAINE 5% PATCH TD SCH (08:49)
[2018-07-05] MEDS: CLOTRIMAZOLE 1% CREAM 30 GM TUBE TP SCH ×2 (08:50→16:57)
[2018-07-05] MEDS: FLUTICASONE/VILANTEROL 1 EACH BLST.W.DEV INH SCH (08:51)
[2018-07-05] MEDS: ACETAMINOPHEN/CODEINE 300-30 MG TABLET PO PRN ×2 (11:54→20:23)
[2018-07-05 16:25] VITALS: BP 164/73
[2018-07-05] MEDS: MONTELUKAST SODIUM 10 MG TABLET PO SCH (17:00)
[2018-07-05] MEDS ORDERED: QUETIAPINE FUMARATE 25 MG TABLET PO PRN (17:30)
[2018-07-05 19:54] VITALS: BP 130/54
[2018-07-05] MEDS: ATORVASTATIN 10 MG TABLET PO SCH (20:23)
[2018-07-05] MEDS: LATANOPROST OPHT DROP 2.5 ML BOTTLE EACHEYE SCH (20:23)
[2018-07-06 05:00] VITALS: BP 129/58
[2018-07-06] MEDS: LEVOTHYROXINE SODIUM 25 MCG TABLET PO SCH (06:28)
[2018-07-06] MEDS: PANTOPRAZOLE SODIUM 40 MG TABLET.DR PO SCH (06:28)
[2018-07-06 07:30] VITALS: BP 151/61
[2018-07-06] MEDS: FLUTICASONE/VILANTEROL 1 EACH BLST.W.DEV INH SCH (09:00)
[2018-07-06] MEDS: LIDOCAINE 5% PATCH TD SCH (09:04)
[2018-07-06] MEDS: CHOLECALCIFEROL 1,000 UNIT TABLET PO SCH (09:05)
[2018-07-06] MEDS: DOCUSATE SODIUM 100 MG CAPSULE PO SCH ×2 (09:05→17:41)
[2018-07-06] MEDS: CINACALCET HCL 30 MG TABLET PO SCH (09:05)
[2018-07-06] MEDS: ALLOPURINOL 100 MG TABLET PO SCH (09:05)
[2018-07-06] MEDS: ACETAMINOPHEN/CODEINE 300-30 MG TABLET PO PRN ×2 (09:39→20:11)
[2018-07-06 15:58] VITALS: BP 118/59
[2018-07-06] MEDS: MONTELUKAST SODIUM 10 MG TABLET PO SCH (17:34)
[2018-07-06] MEDS: CLOTRIMAZOLE 1% CREAM 30 GM TUBE TP SCH ×2 (17:40→17:42)
[2018-07-06] MEDS: SODIUM HYPOCHLORITE 0.125% 473 ML BOTTLE TP SCH (17:40)
[2018-07-06 19:54] VITALS: BP 113/44
[2018-07-06] MEDS: ATORVASTATIN 10 MG TABLET PO SCH (20:11)
[2018-07-06] MEDS: DOXYCYCLINE HYCLATE 100 MG TABLET PO SCH (20:11)
[2018-07-06] MEDS: LATANOPROST OPHT DROP 2.5 ML BOTTLE EACHEYE SCH (20:12)
[2018-07-07 05:34] VITALS: BP 137/56
[2018-07-07] MEDS: LEVOTHYROXINE SODIUM 25 MCG TABLET PO SCH (06:05)
[2018-07-07] MEDS: PANTOPRAZOLE SODIUM 40 MG TABLET.DR PO SCH (06:05)
[2018-07-07] MEDS: FLUTICASONE/VILANTEROL 1 EACH BLST.W.DEV INH SCH (08:11)
[2018-07-07] MEDS: CHOLECALCIFEROL 1,000 UNIT TABLET PO SCH (08:12)
[2018-07-07] MEDS: ALLOPURINOL 100 MG TABLET PO SCH (08:12)
[2018-07-07] MEDS: CLOPIDOGREL 75 MG TABLET PO SCH (08:12)
[2018-07-07] MEDS: DOXYCYCLINE HYCLATE 100 MG TABLET PO SCH ×2 (08:12→20:21)
[2018-07-07] MEDS: DOCUSATE SODIUM 100 MG CAPSULE PO SCH ×2 (08:12→16:53)
[2018-07-07] MEDS: CINACALCET HCL 30 MG TABLET PO SCH (08:12)
[2018-07-07] MEDS: SPIRONOLACTONE 25 MG TABLET PO SCH (08:12)
[2018-07-07] MEDS: SODIUM HYPOCHLORITE 0.125% 473 ML BOTTLE TP SCH (08:13)
[2018-07-07] MEDS: CLOTRIMAZOLE 1% CREAM 30 GM TUBE TP SCH ×2 (08:13→16:47)
[2018-07-07] MEDS: LIDOCAINE 5% PATCH TD SCH (08:14)
[2018-07-07] MEDS: ACETAMINOPHEN/CODEINE 300-30 MG TABLET PO PRN ×2 (08:16→23:35)
[2018-07-07] MEDS ORDERED: MINERAL OIL/PETROLATUM,WHITE 57 GM TUBE TOP PRN (10:58)
[2018-07-07] MEDS: MONTELUKAST SODIUM 10 MG TABLET PO SCH (16:53)
[2018-07-07 20:00] VITALS: BP 148/48
[2018-07-07] MEDS: LATANOPROST OPHT DROP 2.5 ML BOTTLE EACHEYE SCH (20:20)
[2018-07-07] MEDS: ATORVASTATIN 10 MG TABLET PO SCH (20:21)
[2018-07-08] MEDS: PANTOPRAZOLE SODIUM 40 MG TABLET.DR PO SCH (06:03)
[2018-07-08] MEDS: LEVOTHYROXINE SODIUM 25 MCG TABLET PO SCH (06:03)
[2018-07-08 06:47] VITALS: BP 133/62
[2018-07-08] MEDS: FLUTICASONE/VILANTEROL 1 EACH BLST.W.DEV INH SCH (09:00)
[2018-07-08] MEDS: DOXYCYCLINE HYCLATE 100 MG TABLET PO SCH ×2 (09:17→21:09)
[2018-07-08] MEDS: DOCUSATE SODIUM 100 MG CAPSULE PO SCH ×2 (09:17→17:04)
[2018-07-08] MEDS: ALLOPURINOL 100 MG TABLET PO SCH (09:17)
[2018-07-08] MEDS: CHOLECALCIFEROL 1,000 UNIT TABLET PO SCH (09:18)
[2018-07-08] MEDS: CLOTRIMAZOLE 1% CREAM 30 GM TUBE TP SCH ×2 (09:18→17:04)
[2018-07-08] MEDS: LIDOCAINE 5% PATCH TD SCH (09:18)
[2018-07-08] MEDS: SODIUM HYPOCHLORITE 0.125% 473 ML BOTTLE TP SCH (09:34)
[2018-07-08] MEDS: CINACALCET HCL 30 MG TABLET PO SCH (09:36)
[2018-07-08] MEDS: ACETAMINOPHEN/CODEINE 300-30 MG TABLET PO PRN ×2 (11:10→21:59)
[2018-07-08] MEDS: MONTELUKAST SODIUM 10 MG TABLET PO SCH (17:04)
[2018-07-08] MEDS ORDERED: diphenhydrAMINE 25 MG CAP PO PRN (20:00)
[2018-07-08 20:35] VITALS: BP 141/68
[2018-07-08 20:36] VITALS: BP 130/56
[2018-07-08] MEDS: ATORVASTATIN 10 MG TABLET PO SCH (21:09)
[2018-07-08] MEDS: LATANOPROST OPHT DROP 2.5 ML BOTTLE EACHEYE SCH (21:10)
[2018-07-08] MEDS ORDERED: diphenhydrAMINE 25 MG CAP PO ONE (21:58)
[2018-07-09 05:57] VITALS: BP 135/56
[2018-07-09] MEDS: PANTOPRAZOLE SODIUM 40 MG TABLET.DR PO SCH (06:26)
[2018-07-09] MEDS: LEVOTHYROXINE SODIUM 25 MCG TABLET PO SCH (06:26)
[2018-07-09 06:38] LABS: BASOPHILS # (AUTO) 0.1 K/uL (0.0-8.0); BASOPHILS % (AUTO) 1.4 % (0.0-2.0); EOSINOPHILS # (AUTO) 0.9 K/uL (0.0-0.7); EOSINOPHILS % (AUTO) 12.2 % (0.0-7.0); HEMOGLOBIN 10.6 g/dL (10.9-14.3); LYMPHOCYTES # (AUTO) 2.3 K/uL (20.0-40.0); LYMPHOCYTES % (AUTO) 30.4 % (20.5-51.5); MEAN CORPUSCULAR HEMOGLOBIN 26.6 uug (24.7-32.8); MEAN CORPUSCULAR HGB CONC 33 g/dL (32.3-35.6); MEAN CORPUSCULAR VOLUME 80.1 fL (75.5-95.3); MONOCYTES # (AUTO) 0.6 K/uL (2.0-10.0); MONOCYTES % (AUTO) 8.4 % (0.0-11.0); NEUTROPHILS # (AUTO) 3.6 K/uL (1.8-8.9); NEUTROPHILS % (AUTO) 47.6 % (38.5-71.5); PLATELET COUNT (AUTO) 326 K/uL (179-408); WHITE BLOOD COUNT (AUTO) 7.6 K/uL (3.8-11.8)
[2018-07-09 07:03] LABS: ALANINE AMINOTRANSFERASE 12 U/L (14-59); ALKALINE PHOSPHATASE 93 U/L (50-136); ASPARTATE AMINOTRANSFERASE 12 U/L (15-37); BILIRUBIN,TOTAL 0.2 mg/dL (0.2-1.0); CARBON DIOXIDE 29 mmol/L (21-32); CHLORIDE 105 mmol/L (98-107); CREATININE 1.1 mg/dL (0.6-1.3); GLUCOSE 91 mg/dL (74-106); MAGNESIUM 1.4 mg/dL (1.8-2.4); PHOSPHOROUS 3.4 mg/dL (2.5-4.9); POTASSIUM 4.5 mmol/L (3.5-5.1); TOTAL PROTEIN, SERUM 5.4 g/dL (6.4-8.2); UREA NITROGEN, BLOOD 25 mg/dL (7-18)
[2018-07-09 08:03] VITALS: BP 107/55
[2018-07-09] MEDS: FLUTICASONE/VILANTEROL 1 EACH BLST.W.DEV INH SCH (09:00)
[2018-07-09] MEDS: DOCUSATE SODIUM 100 MG CAPSULE PO SCH ×2 (09:33→17:05)
[2018-07-09] MEDS: CLOPIDOGREL 75 MG TABLET PO SCH (09:33)
[2018-07-09] MEDS: LIDOCAINE 5% PATCH TD SCH (09:33)
[2018-07-09] MEDS: SPIRONOLACTONE 25 MG TABLET PO SCH (09:33)
[2018-07-09] MEDS: ALLOPURINOL 100 MG TABLET PO SCH (09:33)
[2018-07-09] MEDS: DOXYCYCLINE HYCLATE 100 MG TABLET PO SCH ×2 (09:33→20:48)
[2018-07-09] MEDS: CINACALCET HCL 30 MG TABLET PO SCH (09:33)
[2018-07-09] MEDS: CHOLECALCIFEROL 1,000 UNIT TABLET PO SCH (09:33)
[2018-07-09] MEDS: CLOTRIMAZOLE 1% CREAM 30 GM TUBE TP SCH ×2 (09:34→17:06)
[2018-07-09] MEDS: SODIUM HYPOCHLORITE 0.125% 473 ML BOTTLE TP SCH (09:34)
[2018-07-09 15:02] VITALS: BP 155/62
[2018-07-09] MEDS: ACETAMINOPHEN/CODEINE 300-30 MG TABLET PO PRN ×2 (15:58→20:49)
[2018-07-09] MEDS ORDERED: MAGNESIUM OXIDE 400 MG TABLET PO ONE (17:00)
[2018-07-09] MEDS: MONTELUKAST SODIUM 10 MG TABLET PO SCH (17:06)
[2018-07-09 19:30] VITALS: BP 121/51
[2018-07-09] MEDS: ATORVASTATIN 10 MG TABLET PO SCH (20:48)
[2018-07-09] MEDS: hydrOXYzine HCL 10 MG TABLET PO PRN (20:49)
[2018-07-09] MEDS: LATANOPROST OPHT DROP 2.5 ML BOTTLE EACHEYE SCH (20:55)
[2018-07-09] MEDS ORDERED: DULOXETINE 20 MG CAPSULE.DR PO SCH (23:15)
[2018-07-09] MEDS ORDERED: DULOXETINE 20 MG CAPSULE.DR PO ONE (23:54)
[2018-07-10] MEDS: hydrOXYzine HCL 10 MG TABLET PO PRN ×3 (03:08→17:28)
[2018-07-10 04:00] VITALS: BP 120/55
[2018-07-10] MEDS: PANTOPRAZOLE SODIUM 40 MG TABLET.DR PO SCH (06:16)
[2018-07-10] MEDS: LEVOTHYROXINE SODIUM 25 MCG TABLET PO SCH (06:16)
[2018-07-10 08:00] VITALS: BP 139/61
[2018-07-10] MEDS: CINACALCET HCL 30 MG TABLET PO SCH (08:25)
[2018-07-10] MEDS: DOXYCYCLINE HYCLATE 100 MG TABLET PO SCH (08:25)
[2018-07-10] MEDS: CHOLECALCIFEROL 1,000 UNIT TABLET PO SCH (08:25)
[2018-07-10] MEDS: ALLOPURINOL 100 MG TABLET PO SCH (08:25)
[2018-07-10] MEDS: LIDOCAINE 5% PATCH TD SCH (08:26)
[2018-07-10] MEDS: DOCUSATE SODIUM 100 MG CAPSULE PO SCH ×2 (08:26→17:28)
[2018-07-10] MEDS: ACETAMINOPHEN/CODEINE 300-30 MG TABLET PO PRN ×2 (08:26→21:00)
[2018-07-10] MEDS: SODIUM HYPOCHLORITE 0.125% 473 ML BOTTLE TP SCH (08:26)
[2018-07-10] MEDS: CLOTRIMAZOLE 1% CREAM 30 GM TUBE TP SCH ×2 (08:27→17:28)
[2018-07-10] MEDS ORDERED: DULOXETINE 20 MG CAPSULE.DR PO SCH (09:00)
[2018-07-10] MEDS: FLUTICASONE/VILANTEROL 1 EACH BLST.W.DEV INH SCH (09:00)
[2018-07-10 16:00] VITALS: BP 125/60
[2018-07-10] MEDS: MONTELUKAST SODIUM 10 MG TABLET PO SCH (17:28)
[2018-07-10] MEDS ORDERED: ALBUTEROL SULFATE 8 GM HFA.AER.AD IH PRN (20:00)
[2018-07-10] MEDS ORDERED: ALBU6.7H INH (20:01)
[2018-07-10 20:25] VITALS: BP 149/59
[2018-07-10] MEDS ORDERED: PROVENTIL INH PRN (20:30)
[2018-07-10] MEDS: LATANOPROST OPHT DROP 2.5 ML BOTTLE EACHEYE SCH (20:59)
[2018-07-10] MEDS: ATORVASTATIN 10 MG TABLET PO SCH (21:00)
[2018-07-10] MEDS: BACITRACIN/POLYMYXIN B OINT 15 GM TUBE TOP SCH (21:22)
[2018-07-11 05:00] VITALS: BP 168/61
[2018-07-11] MEDS: LEVOTHYROXINE SODIUM 25 MCG TABLET PO SCH (06:18)
[2018-07-11] MEDS: PANTOPRAZOLE SODIUM 40 MG TABLET.DR PO SCH (06:18)
[2018-07-11] MEDS: hydrOXYzine HCL 10 MG TABLET PO PRN ×2 (06:19→17:21)
[2018-07-11 08:35] VITALS: BP 115/57
[2018-07-11] MEDS: ACETAMINOPHEN/CODEINE 300-30 MG TABLET PO PRN ×2 (09:17→17:21)
[2018-07-11] MEDS: SPIRONOLACTONE 25 MG TABLET PO SCH (09:17)
[2018-07-11] MEDS: CHOLECALCIFEROL 1,000 UNIT TABLET PO SCH (09:17)
[2018-07-11] MEDS: CLOPIDOGREL 75 MG TABLET PO SCH (09:18)
[2018-07-11] MEDS: DOCUSATE SODIUM 100 MG CAPSULE PO SCH ×2 (09:18→17:15)
[2018-07-11] MEDS: LIDOCAINE 5% PATCH TD SCH (09:19)
[2018-07-11] MEDS: ALLOPURINOL 100 MG TABLET PO SCH (09:19)
[2018-07-11] MEDS: CINACALCET HCL 30 MG TABLET PO SCH (09:19)
[2018-07-11] MEDS: BACITRACIN/POLYMYXIN B OINT 15 GM TUBE TOP SCH ×2 (09:20→20:39)
[2018-07-11] MEDS: SODIUM HYPOCHLORITE 0.125% 473 ML BOTTLE TP SCH (09:21)
[2018-07-11] MEDS: CLOTRIMAZOLE 1% CREAM 30 GM TUBE TP SCH ×2 (09:22→17:16)
[2018-07-11 16:35] VITALS: BP 146/83
[2018-07-11] MEDS: MONTELUKAST SODIUM 10 MG TABLET PO SCH (17:15)
[2018-07-11 20:00] VITALS: BP 129/48
[2018-07-11] MEDS: GABAPENTIN 100 MG CAPSULE PO SCH ×2 (20:15→20:30)
[2018-07-11] MEDS: LATANOPROST OPHT DROP 2.5 ML BOTTLE EACHEYE SCH (20:31)
[2018-07-11] MEDS: ATORVASTATIN 10 MG TABLET PO SCH (20:31)
[2018-07-12] MEDS: hydrOXYzine HCL 10 MG TABLET PO PRN ×2 (01:59→21:06)
[2018-07-12] MEDS: GABAPENTIN 100 MG CAPSULE PO SCH (04:15)
[2018-07-12 05:00] VITALS: BP 121/50
[2018-07-12] MEDS: PANTOPRAZOLE SODIUM 40 MG TABLET.DR PO SCH (06:10)
[2018-07-12] MEDS: LEVOTHYROXINE SODIUM 25 MCG TABLET PO SCH (06:10)
[2018-07-12 08:02] VITALS: BP 124/54
[2018-07-12] MEDS: LIDOCAINE 5% PATCH TD SCH (09:23)
[2018-07-12] MEDS: CHOLECALCIFEROL 1,000 UNIT TABLET PO SCH (09:23)
[2018-07-12] MEDS: DOCUSATE SODIUM 100 MG CAPSULE PO SCH ×2 (09:24→17:28)
[2018-07-12] MEDS: CINACALCET HCL 30 MG TABLET PO SCH (09:26)
[2018-07-12] MEDS: FEXOFENADINE HCL 180 MG TABLET PO SCH (09:26)
[2018-07-12] MEDS: ALLOPURINOL 100 MG TABLET PO SCH (09:26)
[2018-07-12] MEDS: CLOTRIMAZOLE 1% CREAM 30 GM TUBE TP SCH ×2 (09:39→17:29)
[2018-07-12] MEDS: SODIUM HYPOCHLORITE 0.125% 473 ML BOTTLE TP SCH (09:39)
[2018-07-12] MEDS: BACITRACIN/POLYMYXIN B OINT 15 GM TUBE TOP SCH ×2 (09:40→21:07)
[2018-07-12] MEDS ORDERED: GABAPENTIN 100 MG CAPSULE PO SCH (14:00)
[2018-07-12 16:34] VITALS: BP 158/40
[2018-07-12] MEDS: MONTELUKAST SODIUM 10 MG TABLET PO SCH (17:25)
[2018-07-12 19:53] VITALS: BP 114/51
[2018-07-12] MEDS: ATORVASTATIN 10 MG TABLET PO SCH (21:06)
[2018-07-12] MEDS: LATANOPROST OPHT DROP 2.5 ML BOTTLE EACHEYE SCH (21:06)
[2018-07-12] MEDS: ACETAMINOPHEN/CODEINE 300-30 MG TABLET PO PRN (22:05)
[2018-07-13 05:41] VITALS: BP 122/57
[2018-07-13] MEDS: PANTOPRAZOLE SODIUM 40 MG TABLET.DR PO SCH (06:01)
[2018-07-13] MEDS: LEVOTHYROXINE SODIUM 25 MCG TABLET PO SCH (06:01)
[2018-07-13 06:43] LABS: BASOPHILS # (AUTO) 0.1 K/uL (0.0-8.0); BASOPHILS % (AUTO) 1.7 % (0.0-2.0); EOSINOPHILS # (AUTO) 1.1 K/uL (0.0-0.7); EOSINOPHILS % (AUTO) 13.8 % (0.0-7.0); HEMATOCRIT 31.8 % (31.2-41.9); HEMOGLOBIN 10.6 g/dL (10.9-14.3); LYMPHOCYTES # (AUTO) 2.7 K/uL (20.0-40.0); LYMPHOCYTES % (AUTO) 32.8 % (20.5-51.5); MEAN CORPUSCULAR HEMOGLOBIN 26.9 uug (24.7-32.8); MEAN CORPUSCULAR HGB CONC 34 g/dL (32.3-35.6); MEAN CORPUSCULAR VOLUME 80.3 fL (75.5-95.3); MONOCYTES # (AUTO) 0.7 K/uL (2.0-10.0); MONOCYTES % (AUTO) 8.2 % (0.0-11.0); NEUTROPHILS # (AUTO) 3.6 K/uL (1.8-8.9); NEUTROPHILS % (AUTO) 43.5 % (38.5-71.5); PLATELET COUNT (AUTO) 365 K/uL (179-408); RED BLOOD CELL COUNT(AUTO) 3.96 MIL/uL (3.63-4.92); WHITE BLOOD COUNT (AUTO) 8.2 K/uL (3.8-11.8)
[2018-07-13 06:50] LABS: ALANINE AMINOTRANSFERASE 12 U/L (14-59); ALKALINE PHOSPHATASE 80 U/L (50-136); ASPARTATE AMINOTRANSFERASE 15 U/L (15-37); BILIRUBIN,TOTAL 0.2 mg/dL (0.2-1.0); CARBON DIOXIDE 29 mmol/L (21-32); CHLORIDE 105 mmol/L (98-107); GLUCOSE 85 mg/dL (74-106); MAGNESIUM 1.3 mg/dL (1.8-2.4); PHOSPHOROUS 3.2 mg/dL (2.5-4.9); POTASSIUM 4.3 mmol/L (3.5-5.1); UREA NITROGEN, BLOOD 23 mg/dL (7-18)
[2018-07-13 08:02] VITALS: BP 148/56
[2018-07-13] MEDS: ACETAMINOPHEN/CODEINE 300-30 MG TABLET PO PRN (08:24)
[2018-07-13] MEDS: DOCUSATE SODIUM 100 MG CAPSULE PO SCH ×2 (09:00→18:56)
[2018-07-13] MEDS: BACITRACIN/POLYMYXIN B OINT 15 GM TUBE TOP SCH ×2 (09:00→22:04)
[2018-07-13] MEDS: CLOTRIMAZOLE 1% CREAM 30 GM TUBE TP SCH ×2 (09:00→17:00)
[2018-07-13] MEDS: FEXOFENADINE HCL 180 MG TABLET PO SCH (09:45)
[2018-07-13] MEDS: SPIRONOLACTONE 25 MG TABLET PO SCH (09:45)
[2018-07-13] MEDS: CLOPIDOGREL 75 MG TABLET PO SCH (09:46)
[2018-07-13] MEDS: CINACALCET HCL 30 MG TABLET PO SCH (09:46)
[2018-07-13] MEDS: CHOLECALCIFEROL 1,000 UNIT TABLET PO SCH (09:46)
[2018-07-13] MEDS: ALLOPURINOL 100 MG TABLET PO SCH (09:47)
[2018-07-13] MEDS: LIDOCAINE 5% PATCH TD SCH (09:47)
[2018-07-13] MEDS: hydrOXYzine HCL 10 MG TABLET PO PRN (11:33)
[2018-07-13] MEDS: SODIUM HYPOCHLORITE 0.125% 473 ML BOTTLE TP SCH (14:00)
[2018-07-13] MEDS ORDERED: MAGNESIUM OXIDE 400 MG TABLET PO ONE (15:00)
[2018-07-13 16:09] VITALS: BP 120/47
[2018-07-13] MEDS: MONTELUKAST SODIUM 10 MG TABLET PO SCH (18:57)
[2018-07-13 20:23] VITALS: BP 125/58
[2018-07-13] MEDS: ATORVASTATIN 10 MG TABLET PO SCH (22:01)
[2018-07-13] MEDS: LATANOPROST OPHT DROP 2.5 ML BOTTLE EACHEYE SCH (22:05)
[2018-07-14 05:55] VITALS: BP 124/62
[2018-07-14] MEDS: LEVOTHYROXINE SODIUM 25 MCG TABLET PO SCH (06:30)
[2018-07-14] MEDS: PANTOPRAZOLE SODIUM 40 MG TABLET.DR PO SCH (06:30)
[2018-07-14 07:30] VITALS: BP 127/56
[2018-07-14] MEDS: DOCUSATE SODIUM 100 MG CAPSULE PO SCH ×2 (08:28→17:08)
[2018-07-14] MEDS: ALLOPURINOL 100 MG TABLET PO SCH (08:28)
[2018-07-14] MEDS: LIDOCAINE 5% PATCH TD SCH (08:29)
[2018-07-14] MEDS: FEXOFENADINE HCL 180 MG TABLET PO SCH (08:29)
[2018-07-14] MEDS: CINACALCET HCL 30 MG TABLET PO SCH (08:30)
[2018-07-14] MEDS: CHOLECALCIFEROL 1,000 UNIT TABLET PO SCH (08:35)
[2018-07-14] MEDS: BACITRACIN/POLYMYXIN B OINT 15 GM TUBE TOP SCH ×2 (08:47→22:00)
[2018-07-14] MEDS: CLOTRIMAZOLE 1% CREAM 30 GM TUBE TP SCH ×2 (08:48→16:07)
[2018-07-14] MEDS: SODIUM HYPOCHLORITE 0.125% 473 ML BOTTLE TP SCH (08:48)
[2018-07-14 15:41] VITALS: BP 130/58
[2018-07-14] MEDS: MONTELUKAST SODIUM 10 MG TABLET PO SCH (17:08)
[2018-07-14 19:41] VITALS: BP 124/60
[2018-07-14] MEDS: LATANOPROST OPHT DROP 2.5 ML BOTTLE EACHEYE SCH (21:58)
[2018-07-14] MEDS: ATORVASTATIN 10 MG TABLET PO SCH (21:58)
[2018-07-15 06:00] VITALS: BP 121/68
[2018-07-15] MEDS: PANTOPRAZOLE SODIUM 40 MG TABLET.DR PO SCH (06:26)
[2018-07-15] MEDS: LEVOTHYROXINE SODIUM 25 MCG TABLET PO SCH (06:26)
[2018-07-15 08:00] VITALS: BP 127/55
[2018-07-15] MEDS: FEXOFENADINE HCL 180 MG TABLET PO SCH (08:43)
[2018-07-15] MEDS: CINACALCET HCL 30 MG TABLET PO SCH (08:43)
[2018-07-15] MEDS: CHOLECALCIFEROL 1,000 UNIT TABLET PO SCH (08:43)
[2018-07-15] MEDS: SPIRONOLACTONE 25 MG TABLET PO SCH (08:43)
[2018-07-15] MEDS: CLOTRIMAZOLE 1% CREAM 30 GM TUBE TP SCH ×2 (08:43→17:00)
[2018-07-15] MEDS: BACITRACIN/POLYMYXIN B OINT 15 GM TUBE TOP SCH (08:43)
[2018-07-15] MEDS: ALLOPURINOL 100 MG TABLET PO SCH (08:43)
[2018-07-15] MEDS: SODIUM HYPOCHLORITE 0.125% 473 ML BOTTLE TP SCH (08:43)
[2018-07-15] MEDS: LIDOCAINE 5% PATCH TD SCH (08:43)
[2018-07-15] MEDS: DOCUSATE SODIUM 100 MG CAPSULE PO SCH ×2 (08:43→17:00)
[2018-07-15] MEDS: CLOPIDOGREL 75 MG TABLET PO SCH (08:43)
[2018-07-15 16:00] VITALS: BP 138/71
[2018-07-15] MEDS: MONTELUKAST SODIUM 10 MG TABLET PO SCH (18:00)
== END 2018-07-15 17:50 | DRG 70 ==
PROVIDERS: ADMIT Physical Medicine & Rehabilitation Pain Medicine; ATTEND Physical Medicine & Rehabilitation Pain Medicine
DX: G93.41 Metabolic encephalopathy (principal); E43 Unspecified severe protein-calorie malnutrition; I50.32 Chronic diastolic (congestive) heart failure; D68.59 Other primary thrombophilia; L97.929 Non-pressure chronic ulcer of unspecified part of left lower leg with unspecified severity; L97.919 Non-pressure chronic ulcer of unspecified part of right lower leg with unspecified severity; L03.116 Cellulitis of left lower limb; L03.115 Cellulitis of right lower limb; N39.0 Urinary tract infection, site not specified; E03.9 Hypothyroidism, unspecified; E78.5 Hyperlipidemia, unspecified; F03.90 Unspecified dementia, unspecified severity, without behavioral disturbance, psychotic disturbance, mood disturbance, and anxiety; G89.29 Other chronic pain; I11.0 Hypertensive heart disease with heart failure; I25.10 Atherosclerotic heart disease of native coronary artery without angina pectoris; J45.909 Unspecified asthma, uncomplicated; K21.9 Gastro-esophageal reflux disease without esophagitis; M10.9 Gout, unspecified; M19.90 Unspecified osteoarthritis, unspecified site; E66.9 Obesity, unspecified; Z68.25 Body mass index [BMI] 25.0-25.9, adult; D32.9 Benign neoplasm of meninges, unspecified; D50.9 Iron deficiency anemia, unspecified; F32.9 Major depressive disorder, single episode, unspecified; I87.2 Venous insufficiency (chronic) (peripheral); E11.622 Type 2 diabetes mellitus with other skin ulcer; M54.40 Lumbago with sciatica, unspecified side; M48.00 Spinal stenosis, site unspecified; Z22.322 Carrier or suspected carrier of Methicillin resistant Staphylococcus aureus; L29.8 Other pruritus; T36.4X5A Adverse effect of tetracyclines, initial encounter; Y92.230 Patient room in hospital as the place of occurrence of the external cause; F43.22 Adjustment disorder with anxiety; Z88.1 Allergy status to other antibiotic agents; Z88.0 Allergy status to penicillin; Z88.2 Allergy status to sulfonamides; Z88.8 Allergy status to other drugs, medicaments and biological substances; Z83.3 Family history of diabetes mellitus
CPT/HCPCS: 36415; 70030-TC; 83735; 84100; 85025; 87070; 87077; 92523; 97110; 97112; 97116; 97165; 97530; 97535; A4217; J8499; Q0163